=== PATIENT | female | born 1935 | race Caucasian/White ===

== ENCOUNTER 2016-05-06 23:43 | Emergency (ER) | payer MEDICARE ==
[~2016-05-06] VITALS: Ht 167.6 cm; Wt 72.6 kg
[~2016-05-06 23:43] MED LIST: CARV3.12 PO; HYDR12.55 PO; ISOS30TA47 PO; LEVO25TA2 PO; LOSA50TA21 PO; ROSU40TA PO
== END 2016-05-07 00:55 | disposition home or self-care (01) ==
LOC: ER 23:56
DX: B02.9 Zoster without complications (principal); I10 Essential (primary) hypertension; F17.200 Nicotine dependence, unspecified, uncomplicated
CPT/HCPCS: 99283; A4663

== ENCOUNTER 2016-09-08 07:18 | Inpatient (IN) | payer MEDICARE, MEDICAID ==
[~2016-09-08] VITALS: Ht 167.6 cm; Wt 70.8 kg
[~2016-09-08 07:18] MED LIST changes: -ISOS30TA47 PO; +ISOS30TA9 PO
--- NOTE | 2016-09-08 07:30 | NUR ---
DR GRAY AT BEDSIDE FOR C/O BACK PAIN THAT PATIENT STATES "HAS OCCURED BEFORE DUE TO A PRIOR INJURY".
--- NOTE | 2016-09-08 07:39 | NUR ---
BP IS HIGH, DR GRAY AWARE. PATIENT STATES SHE JUST TOOK 3 BLOOD PRESSURE PILLS PRIOR TO ARRIVAL. SHE IS ALSO IN A LOT OF PAIN. SHE STATES "MY BLOOD PRESSURE IS ALWAYS HIGH".
[2016-09-08] MEDS ORDERED: GABAPENTIN 100 MG CAPSULE PO ONE (07:45)
[2016-09-08] MEDS ORDERED: GABAPENTIN 100 MG CAPSULE ONE (07:48)
[2016-09-08 07:59] LABS: BASOPHILS # (AUTO) 0.1 K/uL (0.0-8.0); BASOPHILS % (AUTO) 1.1 % (0.0-2.0); EOSINOPHILS # (AUTO) 0.2 K/uL (0.0-0.7); EOSINOPHILS % (AUTO) 3.1 % (0.0-7.0); HEMATOCRIT 46.1 % (37-47); HEMOGLOBIN 15.1 G/DL (12.0-16.0); LYMPHOCYTES # (AUTO) 2.3 K/UL (0.8-4.8); LYMPHOCYTES % (AUTO) 29.9 % (20.5-51.5); MEAN CORPUSCULAR HEMOGLOBIN 29.1 UUG (27.0-31.0); MEAN CORPUSCULAR HGB CONC 33 g/dL (32.0-37.0); MEAN CORPUSCULAR VOLUME 88.7 FL (81.0-99.0); MONOCYTES # (AUTO) 0.5 K/UL (0.1-1.30); MONOCYTES % (AUTO) 6.9 % (0.0-11.0); NEUTROPHILS # (AUTO) 4.6 K/UL (1.8-8.9); PLATELET COUNT (AUTO) 84 K/UL (150-450); WHITE BLOOD COUNT (AUTO) 7.7 K/UL (4.0-11.2)
[2016-09-08 08:20] LABS: CARBON DIOXIDE 26 mmol/L (21-32); CHLORIDE 103 mmol/L (98-107); CREATININE 0.9 mg/dL (0.6-1.3); GLUCOSE 104 mg/dL (74-106); UREA NITROGEN, BLOOD 12 mg/dL (7-18)
--- NOTE | 2016-09-08 08:22 | NUR ---
PATIENT STATES PAIN HAS DIMINISHED.
[2016-09-08 08:26] LABS: ALANINE AMINOTRANSFERASE 25 U/L (14-59); ALKALINE PHOSPHATASE 63 U/L (50-136); ASPARTATE AMINOTRANSFERASE 22 U/L (15-37); BILIRUBIN,DIRECT 0.1 mg/dL (0.0-0.2); BILIRUBIN,TOTAL 0.5 mg/dL (0.2-1.0); TOTAL PROTEIN, SERUM 6.9 g/dL (6.4-8.2)
[2016-09-08 08:49] LABS: BAND % (MANUAL) 3 % (0-10); EOSINOPHILS % (MANUAL) 2 % (0-8); LYMPHOCYTES % (MANUAL) 27 % (20-40); MONOCYTES % (MANUAL) 6 % (2-10); NEUTROPHILS % (MANUAL) 62 % (42-75)
[2016-09-08] MEDS ORDERED: MULT1TAB73 PO (09:11)
[2016-09-08] MEDS ORDERED: ASPI81TA31 PO (09:11)
[2016-09-08] MEDS ORDERED: FLAX100025 PO (09:11)
[2016-09-08] MEDS ORDERED: LOSA100T15 PO (09:11)
[2016-09-08] MEDS ORDERED: LACT1CAP71 PO (09:11)
--- NOTE | 2016-09-08 09:15 | NUR ---
REPORT GIVEN TO GEORGE ANDRES. PT AND FAMILY AWARE OF PENDING ADMISSION.
--- NOTE | 2016-09-08 09:59 | NUR ---
PATIENT URINATED IN A CUP UPON ADMISSION TO [facility] FOR LAB.
[2016-09-08 10:09] VITALS: BP 162/90
--- NOTE | 2016-09-08 10:10 | NUR ---
Received this admission from ER per patric, this 80 yo female with the chief complaint of sever back pain, with the diagnosis of intractable back pain. Transferred to bed comfortably. Routine admission care rendered. Awake, alert, oriented x 4, able to move all extremities on purpose, ambulate to the bathroom. Denies numbness or tingling of extremities. Dr. Boss informed of admission
[2016-09-08] MEDS ORDERED: LOSA50TA21 PO (11:02)
[2016-09-08 11:42] VITALS: BP 160/68
[2016-09-08 15:49] VITALS: BP 171/79
--- NOTE | 2016-09-08 16:21 | NUR ---
Called back Dr. Boss to follow up admission orders.
[2016-09-08] MEDS: GABAPENTIN 300 MG CAPSULE PO SCH ×2 (17:35→22:00)
[2016-09-08] MEDS ORDERED: ISOS60TA4 PO (17:39)
--- NOTE | 2016-09-08 18:17 | NUR ---
Explain plan of care with patient and family. Gabapentin given started as ordered.
[2016-09-08 20:00] VITALS: BP 168/84
[2016-09-08] MEDS: CARVEDILOL 3.125 MG TABLET PO SCH (20:11)
[2016-09-08] MEDS: LOSARTAN POTASSIUM 50 MG TABLET PO SCH (20:11)
--- NOTE | 2016-09-08 22:00 | NUR ---
GABAPENTIN 300MG WAS PREVIOUSLY ADMINISTERED BY DAY SHIFT RN AT 1735. SCHEDULED MED Q8HR TOO SOON TO ADMINISTER AT 2200.
--- NOTE | 2016-09-09 | NUR ---
GABAPENTIN 300MG REFUSED BY PATIENT. PATIENT STATED "I DON'T NEED IT".
--- NOTE | 2016-09-09 04:30 | NUR ---
PT'S BP ELEVATED 166/80, HR 67. PT NO C/O OF DIZZINESS, NAUSEA/VOMITING, CHEST PAIN, SOB. PT IS ASYMPTOMATIC. OFFERED PT COREG BUT PT REFUSED TO TAKE MEDS, STATED "I TAKE MY BP MEDS AFTER BREAKFAST, I NEED TO TAKE MY THYROID MED RIGHT NOW". PT FURTHER STATED "I HAVE ALWAYS HAD HIGH BP FOR YEARS AND YEARS AND YEARS". EXPLAINED TO THE PATIENT REGARDING RISKS AND BENEFITS FOR TAKING/NOT TAKING BP MED NOW DUE TO HIGH BP. PATIENT VERBALIZED UNDERSTANDING. WILL CONTINUE TO MONITOR.
[2016-09-09 05:01] VITALS: BP 166/80
[2016-09-09] MEDS: GABAPENTIN 300 MG CAPSULE PO SCH ×3 (05:03→21:09)
[2016-09-09] MEDS: LEVOTHYROXINE SODIUM 25 MCG TABLET PO SCH (06:12)
--- NOTE | 2016-09-09 06:24 | NUR ---
PT SLEPT WELL, IN NO ACUTE DISTRESS. ASSISTED WITH TOILETING NEEDS. PATIENT IS A PLEASANT LADY, COOPERATIVE, EXPRESSED RELIEF OF BACK PAIN FROM GABAPENTIN. SAFETY MEASURES IN PLACE. CALL LIGHT WITHIN REACH, BED ALARM ON. WILL CONTINUE TO MONITOR.
--- NOTE | 2016-09-09 08:08 | NUR ---
PT SLEEPING IN BED, AWAKENS TO NAME, NO ACUTE DISTRESS. RECEIVED PT WITH NO IV. NO FLUIDS ORDERED. [id number], ALL SAFETY AND COMFORT MEASURES ATTENDED TO, CALL LIGHT IN REACH, WILL CONTINUE TO MONITOR
[2016-09-09] MEDS ORDERED: TRAMADOL HCL 50 MG TABLET PO PRN (08:15)
[2016-09-09 08:18] LABS: *BILIRUBIN,URIN NEGATIVE (NEGATIVE); *BLOOD, URINE Trace-lysed (NEGATIVE); *CLARITY,URINE CLEAR (CLEAR); *COLOR,URINE YELLOW (YELLOW); *KETONES,URINE NEGATIVE (NEGATIVE); *PROTEIN,URINE NEGATIVE (NEGATIVE); *UROBILINOGEN,URINE 0.2 E.U./dl (NORMAL); LEUKOCYTE ESTERASE ,URINE 1+ (NEGATIVE); NITRITE, URINE NEGATIVE (NEGATIVE); UGLUCOSE NEGATIVE (NEGATIVE)
[2016-09-09] MEDS: ACIDOPHILUS/BULGARICUS CHEW TAB PO SCH (08:40)
[2016-09-09] MEDS: MULTIVITAMINS,THERAPEUTIC TABLET PO SCH (08:40)
[2016-09-09] MEDS: CARVEDILOL 3.125 MG TABLET PO SCH ×2 (08:43→20:18)
[2016-09-09] MEDS: LOSARTAN POTASSIUM 50 MG TABLET PO SCH ×2 (08:43→20:17)
[2016-09-09] MEDS: ISOSORBIDE MONONITRATE 60 MG TAB.SR.24H PO SCH (08:43)
[2016-09-09] MEDS ORDERED: MISCELLANEOUS MED PO SCH (09:00)
[2016-09-09] MEDS ORDERED: ISOSORBIDE DINITRATE 20 MG TABLET PO SCH (09:00)
[2016-09-09] MEDS ORDERED: ASPIRIN 81 MG TAB.CHEW PO SCH (09:00)
[2016-09-09] MEDS: LIDOCAINE 5% PATCH TD SCH (09:18)
[2016-09-09] MEDS: NAPROXEN 500 MG TABLET PO SCH ×3 (09:19→21:09)
[2016-09-09] MEDS: ATORVASTATIN 40 MG TABLET PO SCH (09:54)
[2016-09-09 10:35] LABS: BACTERIA,URINE FEW /HPF (NONE SEEN); SQUAMOUS EPITHELIAL CELL,UR FEW /HPF (NONE SEEN)
[2016-09-09 11:26] VITALS: BP 139/43
[2016-09-09 15:38] VITALS: BP 136/82
[2016-09-09 20:00] VITALS: BP 153/75
[2016-09-10 04:41] VITALS: BP 149/74
[2016-09-10] MEDS: GABAPENTIN 300 MG CAPSULE PO SCH ×2 (06:00→13:57)
[2016-09-10] MEDS: NAPROXEN 500 MG TABLET PO SCH ×2 (06:00→13:58)
--- NOTE | 2016-09-10 06:00 | NUR ---
PT SLEPT INTERMITTENTLY, IN NO ACUTE DISTRESS. PT C/O OF BEING "LIGHTHEADED". PATIENT'S VS STABLE, NO SOB, NO CHEST PAIN. MEDS ADMINISTERED ORDERED. ASSISTED WITH TOILETING NEEDS. SAFETY MEASURES IN PLACE, CALL LIGHT WITHIN REACH, BED ALARM ON. WILL CONTINUE TO MONITOR.
--- NOTE | 2016-09-10 06:00 | NUR ---
PT REFUSED 0600 SCHEDULED MEDS NAPROXEN AND GABAPENTIN. PT STATED "I DON'T FEEL GOOD, I AM GIVEN TOO MANY MEDICATIONS, I DON'T FEEL ANY PAIN RIGHT NOW". DISCUSSED WITH PATIENT REGARDING RISKS AND BENEFITS ABOUT TAKING/NOT TAKING MEDICATIONS. PATIENT VERBALIZED UNDERSTANDING AND STILL REFUSED TO TAKE NAPROXEN AND GABAPENTIN. PATIENT STATED "I WILL TAKE MY THYROID MEDICINE THOU". WILL CONTINUE TO MONITOR.
[2016-09-10] MEDS: LEVOTHYROXINE SODIUM 25 MCG TABLET PO SCH (06:03)
[2016-09-10] MEDS ORDERED: PREG50CA PO (08:12)
[2016-09-10] MEDS ORDERED: Isosorbide Mononitrate PO (08:12)
[2016-09-10] MEDS ORDERED: NAPR500T3 PO (08:12)
[2016-09-10] MEDS ORDERED: LIDO30AD10 TD (08:12)
[2016-09-10] MEDS: ISOSORBIDE MONONITRATE 60 MG TAB.SR.24H PO SCH (08:48)
[2016-09-10] MEDS: MULTIVITAMINS,THERAPEUTIC TABLET PO SCH (08:48)
[2016-09-10] MEDS: CARVEDILOL 3.125 MG TABLET PO SCH (08:48)
[2016-09-10] MEDS: LOSARTAN POTASSIUM 50 MG TABLET PO SCH (08:48)
[2016-09-10] MEDS: ACIDOPHILUS/BULGARICUS CHEW TAB PO SCH (08:48)
[2016-09-10] MEDS: LIDOCAINE 5% PATCH TD SCH (08:49)
[2016-09-10] MEDS: ATORVASTATIN 40 MG TABLET PO SCH (08:55)
--- NOTE | 2016-09-10 08:55 | NUR ---
PT REFUSING LIPITOR, BROUGHT OWN MEDICATIONS AND WANTS HER OWN. WILL CALL PHARMACY
[2016-09-10] MEDS ORDERED: CRESTOR 40 MG PO SCH (09:15)
[2016-09-10] MEDS ORDERED: ASPIRIN 81 MG TAB.CHEW PO SCH (09:18)
[2016-09-10 11:09] VITALS: BP 123/62
--- NOTE | 2016-09-10 14:32 | NUR ---
DISCHARGE PROTOCOL FOLLOWED, ID BAND REMOVED, ALL BELONGINGS ACCOUNTED FOR AND SENT WITH PATIENT. LEFT MESSAGE FOR NA, DAUGHTER, TO NOTIFY OF TRANSFER, REPORT GIVEN TO ARU, PT TAKEN DOWN TO ARU FOR CONTINUITY OF CARE.
== END 2016-09-10 14:15 | DRG 551 ==
LOC: ER 07:18 → MED 09:32
PROVIDERS: ADMIT Internal Medicine; ATTEND Internal Medicine
DX: M54.9 Dorsalgia, unspecified (principal); R53.2 Functional quadriplegia; I10 Essential (primary) hypertension; I73.9 Peripheral vascular disease, unspecified; K21.9 Gastro-esophageal reflux disease without esophagitis; Z79.899 Other long term (current) drug therapy; Z79.82 Long term (current) use of aspirin; Z98.62 Peripheral vascular angioplasty status; Z73.6 Limitation of activities due to disability
CPT/HCPCS: 36415; 72072; 72110; 85025; 87086; 97110; 97116; 97161; 97165; 97530

== ENCOUNTER 2016-09-10 13:15 | Inpatient (IN) | payer MEDICARE, MEDICAID ==
[~2016-09-10] VITALS: Ht 167.6 cm; Wt 71.2 kg
[~2016-09-10 13:15] MED LIST changes: +ASPI81TA31 PO; +FLAX100025 PO; -HYDR12.55 PO; -ISOS30TA9 PO; +ISOS60TA4 PO; +Isosorbide Mononitrate PO; +LACT1CAP71 PO; +LIDO30AD10 TD; +MULT1TAB73 PO; +NAPR500T3 PO; +PREG50CA PO
[2016-09-10] MEDS ORDERED: Z GUARD REMEDY PASTE 57 GM TUBE TOP PRN (17:30)
[2016-09-10 18:20] VITALS: BP 157/73
--- NOTE | 2016-09-10 18:43 | NUR ---
pt admitted from second floor medsur with a diagnosis of debility .pt vitals recorded on chart. pt stable and shows no signs of distress. all pertinent assessments done. pt arrived at 09/10 at 1600. vitals taken . belonging reconciled. meds recon done with dr todd. states to continue all meds as listed on chart. pt had lidocaine patch on back. pt states she wants to get her own meds from bottles provided and does not want meds from pharmacy. will report new orders and developments to sheep sorter nurse.
[2016-09-10] MEDS: LOSARTAN 50MG PO SCH (20:33)
[2016-09-10] MEDS: CARVEDILOL 3.125MG PO SCH (20:33)
[2016-09-10] MEDS ORDERED: CARVEDILOL 3.125 MG TABLET PO SCH (21:00)
[2016-09-10] MEDS: NAPROXEN 500 MG TABLET PO SCH (22:00)
[2016-09-10 22:18] VITALS: BP 178/80
[2016-09-11] MEDS: LEVOTHYROXINE 25MCG PO SCH (06:05)
[2016-09-11] MEDS: NAPROXEN 500 MG TABLET PO SCH ×3 (06:05→21:23)
[2016-09-11] MEDS ORDERED: LEVOTHYROXINE SODIUM 25 MCG TABLET PO SCH (07:00)
[2016-09-11 07:44] LABS: BASOPHILS # (AUTO) 0.1 K/uL (0.0-8.0); BASOPHILS % (AUTO) 0.8 % (0.0-2.0); EOSINOPHILS # (AUTO) 0.1 K/uL (0.0-0.7); HEMATOCRIT 46.3 % (37-47); HEMOGLOBIN 15.2 G/DL (12.0-16.0); LYMPHOCYTES # (AUTO) 2.2 K/UL (0.8-4.8); MEAN CORPUSCULAR HEMOGLOBIN 29.2 UUG (27.0-31.0); MEAN CORPUSCULAR HGB CONC 33 g/dL (32.0-37.0); MEAN CORPUSCULAR VOLUME 89.1 FL (81.0-99.0); MONOCYTES # (AUTO) 0.6 K/UL (0.1-1.30); MONOCYTES % (AUTO) 8.9 % (0.0-11.0); NEUTROPHILS # (AUTO) 4.1 K/UL (1.8-8.9); NEUTROPHILS % (AUTO) 57.3 % (38.5-71.5); PLATELET COUNT (AUTO) 97 K/UL (150-450); RED BLOOD CELL COUNT(AUTO) 5.19 MIL/UL (4.2-5.4); WHITE BLOOD COUNT (AUTO) 7.1 K/UL (4.0-11.2)
[2016-09-11 07:53] LABS: CARBON DIOXIDE 29 mmol/L (21-32); CHLORIDE 106 mmol/L (98-107); CHOLESTEROL 120 mg/dL (<200); CREATININE 0.9 mg/dL (0.6-1.3); GLUCOSE 91 mg/dL (74-106); HDL CHOLESTEROL 53 mg/dL (40-60); MAGNESIUM 2.1 mg/dL (1.8-2.4); PHOSPHOROUS 3.5 mg/dL (2.5-4.9); TRIGLYCERIDES 65 MG/DL (30-150); UREA NITROGEN, BLOOD 16 mg/dL (7-18)
[2016-09-11 08:37] VITALS: BP 171/80
[2016-09-11] MEDS: ASPIRIN 81MG PO SCH (08:55)
[2016-09-11] MEDS: FLAXSEED OIL 1000 MG PO SCH (08:55)
[2016-09-11] MEDS: CARVEDILOL 3.125MG PO SCH ×2 (08:56→18:29)
[2016-09-11] MEDS: [UNRECOGNIZED DRUG - OTHER] PO SCH (08:56)
[2016-09-11] MEDS: LIDOCAINE 5% PATCH TD SCH (08:56)
[2016-09-11] MEDS: [UNRECOGNIZED DRUG - OTHER] PO SCH (08:56)
[2016-09-11] MEDS: MULTIVITAMIN ADULT PO SCH (08:56)
[2016-09-11] MEDS: ISOSORBIDE MONONITRATE 60 MG PO SCH (08:56)
[2016-09-11] MEDS: CRESTOR 40 MG PO SCH (08:56)
[2016-09-11] MEDS: PREGABALIN 25 MG CAPSULE PO SCH ×2 (08:57→18:29)
[2016-09-11] MEDS ORDERED: ISOSORBIDE MONONITRATE 60 MG TAB.SR.24H PO SCH (09:00)
[2016-09-11] MEDS ORDERED: LOSARTAN POTASSIUM 50 MG TABLET PO SCH (09:00)
[2016-09-11] MEDS ORDERED: ASPIRIN 81 MG TAB.CHEW PO SCH (09:00)
[2016-09-11] MEDS: LOSARTAN 50MG PO SCH ×2 (09:52→21:23)
[2016-09-11 11:58] LABS: BAND % (MANUAL) 1 % (0-10); EOSINOPHILS % (MANUAL) 1 % (0-8); LYMPHOCYTES % (MANUAL) 38 % (20-40); MONOCYTES % (MANUAL) 6 % (2-10); NEUTROPHILS % (MANUAL) 53 % (42-75)
[2016-09-11 12:08] LABS: REACTIVE LYMPHOCYTES 1 % (0-0)
[2016-09-11 19:59] VITALS: BP 158/75
[2016-09-11 20:00] VITALS: BP 158/75
[2016-09-12] MEDS: NAPROXEN 500 MG TABLET PO SCH ×3 (06:01→22:00)
[2016-09-12] MEDS: LEVOTHYROXINE 25MCG PO SCH (06:02)
[2016-09-12 08:57] VITALS: BP 159/84
[2016-09-12] MEDS: LIDOCAINE 5% PATCH TD SCH ×2 (09:00→10:00)
[2016-09-12] MEDS: LOSARTAN 50MG PO SCH ×2 (09:00→20:09)
[2016-09-12] MEDS: ISOSORBIDE MONONITRATE 60 MG PO SCH (09:59)
[2016-09-12] MEDS: CRESTOR 40 MG PO SCH (09:59)
[2016-09-12] MEDS: CARVEDILOL 3.125MG PO SCH ×2 (09:59→16:51)
[2016-09-12] MEDS: ASPIRIN 81MG PO SCH (09:59)
[2016-09-12] MEDS: FLAXSEED OIL 1000 MG PO SCH (09:59)
[2016-09-12] MEDS: MULTIVITAMIN ADULT PO SCH (10:00)
[2016-09-12] MEDS: [UNRECOGNIZED DRUG - OTHER] PO SCH (10:00)
[2016-09-12] MEDS: PREGABALIN 25 MG CAPSULE PO SCH ×2 (10:00→16:50)
[2016-09-12] MEDS: [UNRECOGNIZED DRUG - OTHER] PO SCH (10:00)
--- NOTE | 2016-09-12 18:52 | NUR ---
pt refused to have lidocaine patch on the back. pt states taht she wants to have heat packs instead to relieve discomfort. pt states that therapy was good and md recommended to have 1 week stay. pt agreed to recommendation. pt was supervised when walking. pt took home meds as prescribed. will continue to endorse new improvements to night guard nurse.
--- NOTE | 2016-09-12 19:00 | NUR ---
Received report from GEORGE Lester
--- NOTE | 2016-09-12 19:30 | NUR ---
Seen patient sitting at the edge of hospital bed. AOX4 ambulates w/ cane.Denies any pain.Observed to be very independent w/ her ADL's. Appetite is very good per pt.Mentioned that she did not used her lidocaine patch, used heating/warm compress instead. Did not take her naprosyn last night, was sleeping really good. Pt admitted that she still smokes, was found outside the lounge, EDUCATIONAL PARAPROFESSIONAL witnessed smoking outside. Asked if she has plan of quitting, and she said it is really part of her lifestyle and would have more problems (withdrawal symptoms per pt) if she quits.
[2016-09-12 20:00] VITALS: BP 129/61
--- NOTE | 2016-09-12 20:00 | NUR ---
PM medications given, swallowed meds w/o any difficulty. Ambulated w/ cane w/ no problem.
--- NOTE | 2016-09-13 | NUR ---
Pt sleeping w/ no interruptions. Breathing normally. Continue monitor.Call lights w/in reach.
--- NOTE | 2016-09-13 02:00 | NUR ---
Pt continued to sleep. Breathing normally. Continue monitor.Call lights w/in reach. bed at the lowest position.
--- NOTE | 2016-09-13 04:00 | NUR ---
Pt resting comfortably.Breathing normally.Continue monitor.
--- NOTE | 2016-09-13 06:00 | NUR ---
Pt is awake, perineal and sponge bath provided, lotion provided, changed chucks and linen.Turned and repositioned. Made her comfortable.Kept bed to lowest position Addendum: 09/13/16 at 0659 by ELIZABETH WAGNER RN Error. Wrong patient.
--- NOTE | 2016-09-13 06:00 | NUR ---
GIven Synthroid, preferred to be given at this time 0600.
[2016-09-13] MEDS: LEVOTHYROXINE 25MCG PO SCH (06:05)
[2016-09-13] MEDS: NAPROXEN 500 MG TABLET PO SCH ×3 (06:05→21:03)
--- NOTE | 2016-09-13 06:30 | NUR ---
Given Synthroid and Protonix as ordered, swallowed meds w/o any difficulty. Oral care done, cleansed dentures. Addendum: 09/13/16 at 0702 by ELIZABETH WAGNER RN Error.Wrong patient.
--- NOTE | 2016-09-13 07:00 | NUR ---
Report given to dee dee VAZQUEZ.
[2016-09-13 07:30] VITALS: BP 180/78
[2016-09-13] MEDS: ISOSORBIDE MONONITRATE 60 MG PO SCH (08:15)
[2016-09-13] MEDS: MULTIVITAMIN ADULT PO SCH (08:15)
[2016-09-13] MEDS: CARVEDILOL 3.125MG PO SCH ×2 (08:15→16:58)
[2016-09-13] MEDS: CRESTOR 40 MG PO SCH (08:15)
[2016-09-13] MEDS: LOSARTAN 50MG PO SCH ×2 (08:15→21:03)
[2016-09-13] MEDS: [UNRECOGNIZED DRUG - OTHER] PO SCH (08:15)
[2016-09-13] MEDS: [UNRECOGNIZED DRUG - OTHER] PO SCH (08:15)
[2016-09-13] MEDS: ASPIRIN 81MG PO SCH (08:15)
[2016-09-13] MEDS: FLAXSEED OIL 1000 MG PO SCH (08:15)
[2016-09-13] MEDS: LIDOCAINE 5% PATCH TD SCH (08:16)
[2016-09-13] MEDS: PREGABALIN 25 MG CAPSULE PO SCH ×2 (08:19→16:57)
--- NOTE | 2016-09-13 19:24 | NUR ---
pt had no complications during shift. pt adhered to medication and physcial therapy. pt refused lidocaine patch for back pain and insisted on heat packs. comfort measures provided will continue to endorse to overnight associate nures.
[2016-09-13 20:00] VITALS: BP 136/71
--- NOTE | 2016-09-13 20:00 | NUR ---
RECEIVED PATIENT AWAKE IN BED. A/O X4. PLEASANT WHEN APPROACHED. DENIES ANY PAIN OR DISCOMFORT AT THIS TIME. NO RESP. DISTRESS NOTED. VSS. CALL LIGHT IN REACH. ALL NEEDS ATTENDED. WILL CONTINUE TO MONITOR.
[2016-09-14] MEDS: NAPROXEN 500 MG TABLET PO SCH ×3 (06:26→21:54)
[2016-09-14] MEDS: LEVOTHYROXINE 25MCG PO SCH (06:26)
--- NOTE | 2016-09-14 06:29 | NUR ---
PATIENT AWAKE, RESTING IN BED. SLEPT WELL THROUGHOUT THE NIGHT. DENIES PAIN OR DISCOMFORT. BED ALARM ON. CALL LIGHT IN REACH. ALL NEEDS ATTENDED, WILL CONTINUE TO MONITOR AND ASSESS.
[2016-09-14 07:30] VITALS: BP 160/83
--- NOTE | 2016-09-14 08:00 | NUR ---
RECEIVED PATIENT SITTING IN CHAIR. ALERT AWAKE AND ORIENTED X4. NO S/S OF DISTRESS. NO COMPLAINTS OF PAIN OR DISCOMFORT AT THE MOMENT. CALL LIGHT WITHIN REACH.
[2016-09-14] MEDS: PREGABALIN 25 MG CAPSULE PO SCH ×2 (08:11→17:25)
[2016-09-14] MEDS: CARVEDILOL 3.125MG PO SCH ×2 (08:12→18:54)
[2016-09-14] MEDS: ASPIRIN 81MG PO SCH (08:12)
[2016-09-14] MEDS: CRESTOR 40 MG PO SCH (08:13)
[2016-09-14] MEDS: FLAXSEED OIL 1000 MG PO SCH (08:14)
[2016-09-14] MEDS: ISOSORBIDE MONONITRATE 60 MG PO SCH (08:14)
[2016-09-14] MEDS: LOSARTAN 50MG PO SCH ×2 (08:14→20:28)
[2016-09-14] MEDS: [UNRECOGNIZED DRUG - OTHER] PO SCH (08:15)
[2016-09-14] MEDS: MULTIVITAMIN ADULT PO SCH (08:15)
[2016-09-14] MEDS: [UNRECOGNIZED DRUG - OTHER] PO SCH (08:15)
[2016-09-14] MEDS: LIDOCAINE 5% PATCH TD SCH (08:16)
--- NOTE | 2016-09-14 09:00 | NUR ---
PATIENT REFUSED LIDODERM PATCH AND SAID SHE IS TRYING TO WEAN IT. DISCUSSED RISKS AND BENEFITS. PATIENT SAID SHE WILL LET US KNOW OF SHE NEEDS IT LATER ON.
--- NOTE | 2016-09-14 10:02 | NUR ---
PATIENT TOLERATED THERAPY WITH TOLERABLE PAIN OVER LOWER BACK. OFFERED LIDODERM PATCH, BUT PATIENT SAID SHE WILL WAIT FOR HOT PACK TO TAKE EFFECT.
--- NOTE | 2016-09-14 18:07 | NUR ---
Patient refused to take carvedilol at this time, because according to her she takes her blood pressure medications all at the same time at night. Informed pharmacy. Discussed patient benefits of time prescribed, but patient still refused to take Carvedilol.
[2016-09-14 20:00] VITALS: BP 165/74
--- NOTE | 2016-09-14 20:00 | NUR ---
PATIENT AWAKE IN BED. A/O X4. DENIES ANY PAIN BUT C/O GENERALIZED DISCOMFORT. PATIENT STATED SHE DID A LOT OF PHYSICAL THERAPY THROUGHOUT THE DAY SO SHE IS A LITTLE SORE AND TIRED. BP ELEVATED 165/74. ALL OTHER VSS. PATIENT HAS ROUTINE LOSARTAN 50MG PO FOR BP AND NAPROXEN 500MG PO FOR PAIN. NO RESP. DISTRESS NOTED. CALL LIGHT IN REACH. ALL NEEDS ATTENDED. WILL CONTINUE TO MONITOR AND ASSESS.
[2016-09-15] MEDS: LEVOTHYROXINE 25MCG PO SCH (06:03)
[2016-09-15] MEDS: NAPROXEN 500 MG TABLET PO SCH ×3 (06:03→22:28)
--- NOTE | 2016-09-15 06:34 | NUR ---
PATIENT AWAKE IN BED. RECHECKED BLOOD PRESSURE AND RECEIVED 165/69. PATIENT STATED THAT THIS IS HER BASELINE. PATIENT IS ASYMPTOMATIC AND DENIES ANY PAIN, BUT DOES C/O GENERALIZED DISCOMFORT. PATIENT STATED SHE STILL FEELS OVER-WORKED FROM PHYSICAL THERAPY YESTERDAY. SLEPT WELL. NO RESP. DISTRESS NOTED. CALL LIGHT IN REACH. ALL NEEDS ATTENDED. WILL CONTINUE TO MONITOR.
[2016-09-15 07:30] VITALS: BP 123/89
--- NOTE | 2016-09-15 08:12 | NUR ---
RECEIVED PATIENT SITTING IN BED, AWAKE, ALERT AND ORIENTED X4. NO COMPLAINTS OF PAIN OR DISCOMFORT. PATIENT VERBALIZED THAT SHE FELT TIRED FROM YESTERDAY'S THERAPY. NOT IN ANY FORM OF DISTRESS. CALL LIGHT WITHIN REACH.
[2016-09-15] MEDS: PREGABALIN 25 MG CAPSULE PO SCH ×2 (08:51→18:05)
[2016-09-15] MEDS: CARVEDILOL 3.125MG PO SCH ×3 (08:56→20:12)
[2016-09-15] MEDS: CRESTOR 40 MG PO SCH (08:56)
[2016-09-15] MEDS: ASPIRIN 81MG PO SCH (08:56)
[2016-09-15] MEDS: ISOSORBIDE MONONITRATE 60 MG PO SCH (08:56)
[2016-09-15] MEDS: FLAXSEED OIL 1000 MG PO SCH (08:58)
[2016-09-15] MEDS: [UNRECOGNIZED DRUG - OTHER] PO SCH (08:58)
[2016-09-15] MEDS: [UNRECOGNIZED DRUG - OTHER] PO SCH (08:58)
[2016-09-15] MEDS: MULTIVITAMIN ADULT PO SCH (08:58)
[2016-09-15] MEDS: LIDOCAINE 5% PATCH TD SCH (09:00)
[2016-09-15] MEDS: LOSARTAN 50MG PO SCH ×2 (09:03→20:11)
--- NOTE | 2016-09-15 09:16 | NUR ---
PATIENT REFUSED TO HAVE LIDODERM PATCH. DISCUSSED RISKS AND BENEFITS BUT STILL REFUSED AND SAID SHE WILL LET US KNOW IF SHE NEEDS IT.
--- NOTE | 2016-09-15 14:53 | NUR ---
Oracle Business Intelligence Developer: SW met with patient at bedside to assess needs and provide support. Patient is an 80-year-old female admitted to ARU for back pain/debility. Upon psychiatric social worker interview, patient is pleasant, calm, and cooperative. Patient reported she has been suffering from back pain since "1993" and stated this is not her first hospitalization. Per patient, she has tried various different treatments (i.e. shock therapy, Injections, physical therapy, etc.) for many years. She reported to cope with the back pain by either taking a hot shower, taking Tylenol, or if the pain became uncontrollable she would then go to the hospital. Patient reported she lives at home with her daughter and son in law. She stated her daughter is very involved and supportive at home. Per patient, she uses a walker at home and denied any other DME needed at this time. She stated her goal is "Go home tomorrow" and referred to 09/16/16. Per patient, she feels "stronger" and more "confident" to return home. She reported she no longer has any back pain, and stated that physical therapy has helped her. SW provided supportive counseling to address patients issues of loss related to her hospitalization. SW engaged in active listening. SW provided linkage to resources (case management, caregiving referrals). SW will encourage patient to comply with rehab goals.
--- NOTE | 2016-09-15 20:00 | NUR ---
PATIENT AWAKE IN ROOM. A/O X4. DENIES PAIN OR DISCOMFORT. NO RESP. DISTRESS NOTED. AMBULATES AROUND WELL. STEADY. ALL NEEDS ATTENDED. CALL LIGHT IN REACH.
[2016-09-15 21:32] VITALS: BP 167/84
--- NOTE | 2016-09-16 05:30 | NUR ---
PATIENT ASLEEP. SLEPT WELL THROUGHOUT THE NIGHT. NO S/S OF PAIN OR DISCOMFORT. NO RESP. DISTRESS NOTED. CALL LIGHT IN REACH. ALL NEEDS ATTENDED. WILL CONTINUE TO MONITOR, AND ASSESS.
[2016-09-16] MEDS: NAPROXEN 500 MG TABLET PO SCH ×3 (06:09→21:02)
[2016-09-16] MEDS: LEVOTHYROXINE 25MCG PO SCH (06:09)
--- NOTE | 2016-09-16 07:30 | NUR ---
Received patient awake, sitting on the chair, verbally responsive, coherent, afebrile, not in any form of acute distress. She denies any pain or discomfort at this time. Environmental safety check done. Reminded to use call light for assistance. Call light placed within reach. Assisted to her needs.
[2016-09-16] MEDS: ISOSORBIDE MONONITRATE 60 MG PO SCH (08:29)
[2016-09-16] MEDS: ASPIRIN 81MG PO SCH (08:29)
[2016-09-16] MEDS: [UNRECOGNIZED DRUG - OTHER] PO SCH (08:29)
[2016-09-16] MEDS: PREGABALIN 25 MG CAPSULE PO SCH ×2 (08:29→17:31)
[2016-09-16] MEDS: FLAXSEED OIL 1000 MG PO SCH (08:29)
[2016-09-16] MEDS: [UNRECOGNIZED DRUG - OTHER] PO SCH (08:30)
[2016-09-16] MEDS: CARVEDILOL 3.125MG PO SCH ×2 (08:30→21:02)
[2016-09-16] MEDS: LIDOCAINE 5% PATCH TD SCH (08:30)
[2016-09-16] MEDS: CRESTOR 40 MG PO SCH (08:30)
[2016-09-16] MEDS: MULTIVITAMIN ADULT PO SCH (08:30)
[2016-09-16] MEDS: LOSARTAN 50MG PO SCH ×2 (09:21→21:02)
[2016-09-16 10:31] VITALS: BP 168/83
--- NOTE | 2016-09-16 19:00 | NUR ---
Received report from GEORGE Dorsey
--- NOTE | 2016-09-16 20:00 | NUR ---
Seen patient sitting at the edge of her bed. AOX3 ambulates independently.Denies any back pain. Pleased with physical therapy. Looking forward to go home soon.
--- NOTE | 2016-09-16 21:00 | NUR ---
Administered pm meds:BP meds, tolerated well.
--- NOTE | 2016-09-17 | NUR ---
Pt resting comfortably. Breathing normally. Continue monitor.
[2016-09-17] MEDS: LEVOTHYROXINE 25MCG PO SCH (06:12)
[2016-09-17] MEDS: NAPROXEN 500 MG TABLET PO SCH ×3 (07:00→21:04)
--- NOTE | 2016-09-17 07:00 | NUR ---
Awake, given meds.report to GEORGE Yoon
[2016-09-17] MEDS: ASPIRIN 81MG PO SCH (08:20)
[2016-09-17] MEDS: MULTIVITAMIN ADULT PO SCH (08:20)
[2016-09-17] MEDS: [UNRECOGNIZED DRUG - OTHER] PO SCH (08:20)
[2016-09-17] MEDS: ISOSORBIDE MONONITRATE 60 MG PO SCH (08:20)
[2016-09-17] MEDS: LOSARTAN 50MG PO SCH ×2 (08:20→21:03)
[2016-09-17] MEDS: CARVEDILOL 3.125MG PO SCH ×2 (08:20→21:03)
[2016-09-17] MEDS: CRESTOR 40 MG PO SCH (08:20)
[2016-09-17] MEDS: [UNRECOGNIZED DRUG - OTHER] PO SCH (08:20)
[2016-09-17] MEDS: FLAXSEED OIL 1000 MG PO SCH (08:21)
[2016-09-17] MEDS: PREGABALIN 25 MG CAPSULE PO SCH ×2 (08:22→17:16)
[2016-09-17] MEDS: LIDOCAINE 5% PATCH TD SCH (08:22)
[2016-09-17 08:43] VITALS: BP 169/79
--- NOTE | 2016-09-17 19:30 | NUR ---
Received patient sitting up in chair. Alert and oriented. Able to make needs known. Denies any pain and discomfort at this time. No acute distress noted. No SOB. On room air. All needs attended to promptly. Call light within reach. Will continue to monitor.
[2016-09-17 20:36] VITALS: BP 146/80
[2016-09-17 21:21] VITALS: BP 114/64
--- NOTE | 2016-09-18 05:53 | NUR ---
Patient awake. Slept comfortably throughout the night. Sitting up in chair at this time. All needs attended to promptly. Call light within reach. Will continue to monitor.
[2016-09-18] MEDS: LEVOTHYROXINE 25MCG PO SCH (06:03)
[2016-09-18] MEDS: NAPROXEN 500 MG TABLET PO SCH ×3 (06:03→22:24)
[2016-09-18 08:05] VITALS: BP 187/92
[2016-09-18] MEDS: PREGABALIN 25 MG CAPSULE PO SCH ×2 (08:31→17:36)
[2016-09-18] MEDS: MULTIVITAMIN ADULT PO SCH (08:32)
[2016-09-18] MEDS: CRESTOR 40 MG PO SCH (08:32)
[2016-09-18] MEDS: FLAXSEED OIL 1000 MG PO SCH (08:32)
[2016-09-18] MEDS: CARVEDILOL 3.125MG PO SCH ×2 (08:32→20:38)
[2016-09-18] MEDS: [UNRECOGNIZED DRUG - OTHER] PO SCH (08:32)
[2016-09-18] MEDS: LOSARTAN 50MG PO SCH ×2 (08:32→20:38)
[2016-09-18] MEDS: ISOSORBIDE MONONITRATE 60 MG PO SCH (08:32)
[2016-09-18] MEDS: ASPIRIN 81MG PO SCH (08:32)
[2016-09-18] MEDS: [UNRECOGNIZED DRUG - OTHER] PO SCH (08:32)
[2016-09-18] MEDS: LIDOCAINE 5% PATCH TD SCH (08:33)
--- NOTE | 2016-09-18 19:15 | NUR ---
RECEIVED PATIENT IN BED, ALERT ORIENTED, AMBULATE TO BATHROOM FOR BOWEL AND BLADDER ELIMINATION, NO SOB NO CHEST PAIN, NO COMPLAIN OF PAIN AT THIS TIME. CALL LIGHT WITHIN REACH.
--- NOTE | 2016-09-18 19:42 | NUR ---
pt stable during shift. pt complains of no pain. adhered to therapy and meds. no complications. will endorse new orders to machinist 2nd shift nruse.
[2016-09-18 20:04] VITALS: BP 174/78
--- NOTE | 2016-09-18 22:00 | NUR ---
PATIENT BP ELEVATED, BUT ASYMPTOMATIC, NO HEADACHE, NO VOMITING NOTED, CONT TO MONITOR.
[2016-09-19] MEDS: NAPROXEN 500 MG TABLET PO SCH ×2 (06:00→14:00)
[2016-09-19] MEDS: LEVOTHYROXINE 25MCG PO SCH (07:00)
--- NOTE | 2016-09-19 07:07 | NUR ---
PATIENT SLEPT MOST OF THE NIGHT, NO COMPLAIN OF PAIN, BP ELEVATED ASYMPTOMATIC, PATIENT SMOKES NO SOB NO CHEST PAIN, ENDORSED TO NEXT SHIFT.
--- NOTE | 2016-09-19 08:05 | NUR ---
RECEIVED PATIENT AWAKE IN CHAIR, NO COMPLAINTS OF PAIN OR DISCOMFORT. NO S/S OF DISTRESS. CALL LIGHT WITHIN REACH. FOR POSSIBLE DISCHARGE TODAY.
[2016-09-19 08:26] VITALS: BP 172/85
[2016-09-19] MEDS: LIDOCAINE 5% PATCH TD SCH (09:00)
--- NOTE | 2016-09-19 09:09 | NUR ---
PATIENT REFUSED LIDODERM PATCH AND CLAIMS SHE DOES NOT NEED IT. PATIENT REFUSED NAPROXEN WELL AND SAID SHE WAS TRYING TO TAPER DOWN ON HER PAIN MEDICATIONS. DISCUSSED RISKS AND BENEFITS BUT PATIENT STILL REFUSES.
[2016-09-19] MEDS: FLAXSEED OIL 1000 MG PO SCH (09:14)
[2016-09-19] MEDS: CARVEDILOL 3.125MG PO SCH (09:15)
[2016-09-19] MEDS: [UNRECOGNIZED DRUG - OTHER] PO SCH (09:16)
[2016-09-19] MEDS: CRESTOR 40 MG PO SCH (09:16)
[2016-09-19] MEDS: ASPIRIN 81MG PO SCH (09:16)
[2016-09-19] MEDS: [UNRECOGNIZED DRUG - OTHER] PO SCH (09:16)
[2016-09-19] MEDS: ISOSORBIDE MONONITRATE 60 MG PO SCH (09:16)
[2016-09-19] MEDS: LOSARTAN 50MG PO SCH (09:16)
[2016-09-19] MEDS: MULTIVITAMIN ADULT PO SCH (09:16)
[2016-09-19] MEDS: PREGABALIN 25 MG CAPSULE PO SCH (09:17)
--- NOTE | 2016-09-19 10:30 | NUR ---
PAGED DR. THEODORE FOR MED RECONCILIATION AND PRESCRIPTIONS FOR DISCHARGE. NO CALL BACK OF THE MOMENT.
--- NOTE | 2016-09-19 11:26 | NUR ---
Called exchanged for [facility] nephrology. Paged for board of education secretary for med reconciliation and prescriptions but still no call back.
--- NOTE | 2016-09-19 13:00 | NUR ---
DR. REN TELEPHONE ORDERS TO CONTINUE ALL MEDICATIONS. HOWEVER, PRESCRIPTIONS FOR MEDICATIONS WILL BE DONE BY DR. MINAYA IN [address] REN. PATIENT AND FAMILY VERY EAGER TO GO HOME.
--- NOTE | 2016-09-19 14:00 | NUR ---
PATIENT REFUSED TO TAKE NAPROXEN AND SAID SHE IS NOT IN PAIN. DISCUSSED RISKS AND BENEFITS BUT STILL REFUSES
--- NOTE | 2016-09-19 14:56 | NUR ---
DISCHARGED AMBULATORY IN STABLE CONDITION,NO S/S OF DISTRESS, NO COMPLAINTS OF PAIN, VSS. ACCOMPANIED BY SON-IN LAW VIA PRIVATE CAR.
== END 2016-09-19 15:00 | disposition home health service (06) | DRG 947 ==
PROVIDERS: ADMIT Internal Medicine; ATTEND Internal Medicine
DX: R53.81 Other malaise (principal); R53.2 Functional quadriplegia; E03.9 Hypothyroidism, unspecified; S39.012A Strain of muscle, fascia and tendon of lower back, initial encounter; X58.XXXA Exposure to other specified factors, initial encounter; Y92.009 Unspecified place in unspecified non-institutional (private) residence as the place of occurrence of the external cause; I73.9 Peripheral vascular disease, unspecified; I10 Essential (primary) hypertension; R53.1 Weakness; M51.36 Other intervertebral disc degeneration, lumbar region; G89.29 Other chronic pain; M54.5 Low back pain; R26.9 Unspecified abnormalities of gait and mobility
CPT/HCPCS: 36415; 83735; 84100; 85025; 92610; 97110; 97112; 97116; 97161; 97530; 97535; A4663

== ENCOUNTER 2017-09-12 07:59 | Inpatient (IN) | payer MEDICARE, MEDICAID ==
[~2017-09-12] VITALS: Ht 167.6 cm; Wt 74.4 kg
[~2017-09-12 07:59] MED LIST changes: +NAPR-1009 PO; -NAPR500T3 PO
--- NOTE | 2017-09-12 08:29 | NUR ---
PT IS IN ROOM #1B. DR RIVAS EVALUATED THE PT.
[2017-09-12] MEDS ORDERED: ONDANSETRON 4 MG/2 ML VIAL IV ONE (08:30)
[2017-09-12] MEDS ORDERED: MECLIZINE HCL 25 MG TABLET PO ONE (08:30)
[2017-09-12] MEDS ORDERED: ONDANSETRON 4 MG/2 ML VIAL ONE (08:42)
[2017-09-12] MEDS ORDERED: MECLIZINE HCL 25 MG TABLET ONE (08:42)
[2017-09-12 09:08] LABS: BASOPHILS # (AUTO) 0.1 K/uL (0.0-8.0); BASOPHILS % (AUTO) 0.7 % (0.0-2.0); EOSINOPHILS # (AUTO) 0.2 K/uL (0.0-0.7); EOSINOPHILS % (AUTO) 1.9 % (0.0-7.0); HEMOGLOBIN 13.8 g/dL (10.9-14.3); LYMPHOCYTES # (AUTO) 2.4 K/uL (20.0-40.0); LYMPHOCYTES % (AUTO) 29.1 % (20.5-51.5); MEAN CORPUSCULAR HEMOGLOBIN 30.7 uug (24.7-32.8); MEAN CORPUSCULAR HGB CONC 34 g/dL (32.3-35.6); MEAN CORPUSCULAR VOLUME 91.3 fL (75.5-95.3); MONOCYTES # (AUTO) 0.7 K/uL (2.0-10.0); MONOCYTES % (AUTO) 8.9 % (0.0-11.0); NEUTROPHILS % (AUTO) 59.4 % (38.5-71.5); PLATELET COUNT (AUTO) 114 K/uL (179-408); RED BLOOD CELL COUNT(AUTO) 4.49 MIL/uL (3.63-4.92); WHITE BLOOD COUNT (AUTO) 8.4 K/uL (3.8-11.8)
[2017-09-12 09:17] LABS: CARBON DIOXIDE 28 mmol/L (21-32); CHLORIDE 106 mmol/L (98-107); CREATININE 0.9 mg/dL (0.6-1.3); GLUCOSE 90 mg/dL (74-106); POTASSIUM 3.4 mmol/L (3.5-5.1); UREA NITROGEN, BLOOD 10 mg/dL (7-18)
[2017-09-12 09:23] LABS: *BILIRUBIN,URIN NEGATIVE (NEGATIVE); *BLOOD, URINE NEGATIVE (NEGATIVE); *CLARITY,URINE CLOUDY (CLEAR); *COLOR,URINE YELLOW (YELLOW); *KETONES,URINE NEGATIVE (NEGATIVE); *PROTEIN,URINE TRACE (NEGATIVE); *UROBILINOGEN,URINE 0.2 E.U./dl (NORMAL); LEUKOCYTE ESTERASE ,URINE TRACE (NEGATIVE); NITRITE, URINE NEGATIVE (NEGATIVE); PH,URINE 8.5 (5.0-8.0); UGLUCOSE NEGATIVE (NEGATIVE)
[2017-09-12 09:30] LABS: ALANINE AMINOTRANSFERASE 33 U/L (14-59); ALKALINE PHOSPHATASE 59 U/L (50-136); ASPARTATE AMINOTRANSFERASE 24 U/L (15-37); BILIRUBIN,DIRECT 0.1 mg/dL (0.0-0.2); BILIRUBIN,TOTAL 0.4 mg/dL (0.2-1.0); TOTAL PROTEIN, SERUM 6.2 g/dL (6.4-8.2)
[2017-09-12 09:33] LABS: BACTERIA,URINE FEW /HPF (NONE SEEN); SQUAMOUS EPITHELIAL CELL,UR FEW /HPF (NONE SEEN); URINE AMORPHOUS PHOSPHATES FEW /HPF
--- NOTE | 2017-09-12 11:23 | NUR ---
REPORT WAS GIVEN TO MATERIAL HANDLING SUPERVISOR. PT WAS TRANSFERED TO TELEMETRY ROOM #226.
--- NOTE | 2017-09-12 11:50 | NUR ---
PT ARRIVED ON THE UNIT VIA GURNEY, PT IS CALM COOPERATIVE, BP 184/95 HEART RATE 95 DIGITAL PRODUCT SPECIALIST INFORMED.PT GIVEN COREG AND COZAAR. MEDICATION EFFECTIVE. BP 125/58. CONTINUE TO MONITOR PT. EF 60%, SKIN INTACT, AMBULATORY, AOX4, NO SIGNS OF RESPIRATORY DISTRESS.
[2017-09-12] MEDS: FUROSEMIDE 20 MG TABLET PO SCH (12:23)
[2017-09-12] MEDS ORDERED: LOSARTAN POTASSIUM 50 MG TABLET PO ONE (13:45)
[2017-09-12] MEDS: CARVEDILOL 3.125 MG TABLET PO SCH (13:58)
[2017-09-12 15:49] VITALS: BP 123/41
--- NOTE | 2017-09-12 18:52 | NUR ---
PT IS CALM, COOPERATIVE, AOX4, NO SIGNS OF DISTRESS, DENIES WEAKNESS, CONTINUE TO MONITOR PT.
[2017-09-12 19:00] VITALS: BP 137/60
--- NOTE | 2017-09-12 19:40 | NUR ---
RECEIVED SHIFT REPORT FROM GEORGE WATTERS. PT RESTING IN BED, NO COMPLAINTS AT THIS TIME. NSR ON TELE MONITORING. PT HAS A 20 G IV ACCESS ON RIGHT FOREARM, SALINE LOCKED. ORIENTED TO ROOM AND UNIT. CALL LIGHT WITHIN REACH.
[2017-09-12] MEDS: LOSARTAN POTASSIUM 50 MG TABLET PO SCH (20:39)
--- NOTE | 2017-09-12 22:15 | NUR ---
PT COMPLAINED OF FEELING "WEIRD". UPON ASSESSMENT, PT HYPERTENSIVE 180/71, HR 77. PT DENIES PAIN, C/P, SOB, N/V. PAGED DR MINAYA, AWAITING CALLBACK.
--- NOTE | 2017-09-12 22:30 | NUR ---
UPON REASSESSMENT, PT'S V/S 148/74, HR 76. PT STILL DENIES PAIN, C/P, SOB, N/V. WILL CONTINUE TO MONITOR. STILL AWAITING CALLBACK FROM ON-CALL
--- NOTE | 2017-09-12 22:48 | NUR ---
PT NOW DENIES ANY COMPLAINT. V/S 150/72, HR 76. NO PAIN, C/P, SOB, N/V. PT CALM AND RESTING COMFORTABLY IN BED. AWAITING CALLBACK FROM ON-CALL
[2017-09-13] VITALS (10 sets, daily range): BP systolic 120–181; BP diastolic 64–95
[2017-09-13] MEDS: LOSARTAN POTASSIUM 50 MG TABLET PO SCH ×2 (04:01→20:31)
--- NOTE | 2017-09-13 04:01 | NUR ---
PT'S V/S 181/68, HR 75. PT DENIES PAIN, C/P, SOB, N/V, HEADACHE. LOSARTAN ADMIN EARLY DUE TO ELEVATED BP.
--- NOTE | 2017-09-13 05:15 | NUR ---
UPON REASSESSMENT, PT'S BP STILL ELEVATED 181/82, HR 80. CONTACTED ON-CALL , DR. GREER. RECEIVED ORDERS TO ADMINISTER NITROGLYCERIN PASTE 1 INCH PRN Q6H FOR SBP > 165. ORDERS NOTED AND CARRIED OUT. WILL ADMINISTER MED ONCE VERIFIED BY PHARM.
[2017-09-13] MEDS: NITROGLYCERIN OINT 1 GM PACKET TP PRN ×2 (05:40→15:42)
--- NOTE | 2017-09-13 05:40 | NUR ---
PT'S BP 205/94, HR 64. PT DENIES PAIN, C/P, SOB, N/V, HEADACHE. NITRO PASTE ADMIN ORDERED. WILL CONTINUE TO MONITOR.
[2017-09-13] MEDS ORDERED: NITROGLYCERIN OINT 1 GM PACKET TP SCH (06:00)
[2017-09-13] MEDS: LEVOTHYROXINE SODIUM 25 MCG TABLET PO SCH (06:07)
[2017-09-13 06:09] LABS: BASOPHILS % (AUTO) 0.5 % (0.0-2.0); EOSINOPHILS # (AUTO) 0.1 K/uL (0.0-0.7); EOSINOPHILS % (AUTO) 1.6 % (0.0-7.0); HEMATOCRIT 39.4 % (31.2-41.9); HEMOGLOBIN 13.3 g/dL (10.9-14.3); LYMPHOCYTES # (AUTO) 2.5 K/uL (20.0-40.0); LYMPHOCYTES % (AUTO) 33.2 % (20.5-51.5); MEAN CORPUSCULAR HEMOGLOBIN 30.5 uug (24.7-32.8); MEAN CORPUSCULAR HGB CONC 34 g/dL (32.3-35.6); MEAN CORPUSCULAR VOLUME 89.9 fL (75.5-95.3); MONOCYTES # (AUTO) 0.6 K/uL (2.0-10.0); MONOCYTES % (AUTO) 8.4 % (0.0-11.0); NEUTROPHILS # (AUTO) 4.3 K/uL (1.8-8.9); NEUTROPHILS % (AUTO) 56.3 % (38.5-71.5); PLATELET COUNT (AUTO) 105 K/uL (179-408); RED BLOOD CELL COUNT(AUTO) 4.38 MIL/uL (3.63-4.92); WHITE BLOOD COUNT (AUTO) 7.6 K/uL (3.8-11.8)
[2017-09-13 06:32] LABS: CARBON DIOXIDE 31 mmol/L (21-32); CHLORIDE 106 mmol/L (98-107); GLUCOSE 84 mg/dL (74-106); POTASSIUM 3.9 mmol/L (3.5-5.1)
[2017-09-13 06:33] LABS: ALANINE AMINOTRANSFERASE 33 U/L (14-59); ALKALINE PHOSPHATASE 52 U/L (50-136); ASPARTATE AMINOTRANSFERASE 18 U/L (15-37); BILIRUBIN,TOTAL 0.6 mg/dL (0.2-1.0); CREATININE 0.8 mg/dL (0.6-1.3); MAGNESIUM 1.6 mg/dL (1.8-2.4); PHOSPHOROUS 3.9 mg/dL (2.5-4.9); TOTAL PROTEIN, SERUM 5.8 g/dL (6.4-8.2); UREA NITROGEN, BLOOD 11 mg/dL (7-18)
--- NOTE | 2017-09-13 06:47 | NUR ---
PT'S SBP RANGING IN THE 180'S AND DBP 80S. NITROGLYCERIN PASTE WELL TOLERATED. WILL REPORT TO AM SHIFT RN REGARDING PT'S BP STATUS. PT CONTINUES TO DENY PAIN, C/P, SOB, N/V. ASSISTED PT TO RESTROOM TO VOID. PT CURRENTLY IN BED, RESTING COMFORTABLY.
[2017-09-13] MEDS: CARVEDILOL 3.125 MG TABLET PO SCH ×2 (07:00→17:16)
--- NOTE | 2017-09-13 08:00 | NUR ---
AWAKE ALERT BUT ANXIOUS NO ACUTE DISTRESS OR PAIN ON FALL PRECAUTION CALL LIGHT IN REACH AND BED ALARM ON AND INSTRUCTION TO CALL WHEN NEED
[2017-09-13] MEDS: ASPIRIN 81 MG TAB.CHEW PO SCH (08:04)
[2017-09-13] MEDS: ISOSORBIDE MONONITRATE 60 MG TAB.SR.24H PO SCH (08:04)
[2017-09-13] MEDS: FUROSEMIDE 20 MG TABLET PO SCH (08:05)
--- NOTE | 2017-09-13 09:00 | NUR ---
DR MICHAEL WAS IN FORM OF BP STILL HIGH THIS AM 179/84
--- NOTE | 2017-09-13 10:00 | NUR ---
MED GIVEN FOR HIGH BP ORDER ASSIST UP AMB TO BRP USE FWW DOING WELL FAMILY DAUGHTER AT BEDSIDE
[2017-09-13] MEDS ORDERED: CARVEDILOL 3.125 MG TABLET PO ONE (10:15)
[2017-09-13] MEDS ORDERED: POTASSIUM CHLORIDE 10 MEQ TAB.PRT.SR PO ONE (10:45)
[2017-09-13] MEDS: MAGNESIUM SULFATE/D5W 100 ML IV SCH ×2 (10:59→11:56)
[2017-09-13] MEDS: NICOTINE 7 MG/24HR PATCH TD SCH (10:59)
[2017-09-13] MEDS: MULTIVITAMINS,THERAPEUTIC TABLET PO SCH (10:59)
[2017-09-13] MEDS: HYDROCHLOROTHIAZIDE 25 MG TABLET PO SCH (11:00)
[2017-09-13] MEDS: FAMOTIDINE 20 MG TABLET PO SCH ×2 (11:00→20:31)
--- NOTE | 2017-09-13 11:00 | NUR ---
AMB WITH PHYSICAL THERAPY USE FWW DOING WELL NO PAIN OR SOB AT THIS TIME AND UP IN CHAIR
--- NOTE | 2017-09-13 17:00 | NUR ---
STABLE HEMODYNAMIC S,PAIN UNDER CONTROL NO ACUTE DISTRESS SAFETY MEASURE PROVIDED BED ALARM ON AND CALL LIGHT IN REACH
--- NOTE | 2017-09-13 19:31 | NUR ---
RECEIVED SHIFT REPORT FROM GEORGE MORRELL. PT IN BED, NO COMPLAINTS OF PAIN, C/P, SOB, N/V. CALL LIGHT WITHIN REACH WITH BED ALARM ON. PT IS ON NSR ON TELE MONITORING. FWW AT BEDSIDE, PT INSTRUCTED TO USE CALL LIGHT WHEN GETTING OUT OF BED.
[2017-09-13] MEDS: ATORVASTATIN 40 MG TABLET PO SCH (20:31)
--- NOTE | 2017-09-13 22:20 | NUR ---
PT SINUS TACHY ON TELE MONITORING. V/S 126/66, HR 130, RR 18, SPO2 98% ON ROOM AIR. PT DENIES PAIN, C/P, SOB, N/V. PT AMBULATED TO RESTROOM USING FWW. WILL CONTINUE TO MONITOR V/S AND TELE MONITORING. PT IS IN BED RESTING COMFORTABLY.
--- NOTE | 2017-09-13 22:20 | NUR ---
PT IN ATRIAL TACH ON TELE MONITORING. CONVERTING IN AND OUT OF UNSUSTAINED A FIB. PT DENIES PAIN, C/P, SOB, N/V.
--- NOTE | 2017-09-13 22:50 | NUR ---
DR. ESTRADA NOTIFIED OF PT'S STATUS, RECEIVED ORDERS TO ADMIN 150 MG AMIODARONE BOLUS X 1 NOW AND TO FOLLOW DRIP PROTOCOL IF PT CONVERTS BACK INTO A FIB. PT STILL IN STABLE CONDITION, DENIES ANY DISCOMFORT.
--- NOTE | 2017-09-13 22:50 | NUR ---
PT HR REMAINS ELEVATED AT 134, DENIES ANY DISCOMFORT. PT ADMIN O2 AT 2 LPM VIA N/C.
[2017-09-13] MEDS ORDERED: AMIODARONE HCL IV 150 MG in IV DEXTROSE 5% 100 ML IV ONE (23:00)
--- NOTE | 2017-09-13 23:15 | NUR ---
Received pt via bed from Telemetry Floor Room 226 as CASSIE status to CCU Room 3 in guarded condition. Pt accompanied by Tele RNs and ASSISTANT EXECUTIVE HOUSEKEEPER. Pt awake, alert, anxious. In no apparent acute distress. Plans of care and unit orientation done. Pt appears more relaxed with reassurance and explanations. Please see CASSIE flowsheet for assessment and clinical data.
--- NOTE | 2017-09-13 23:15 | NUR ---
PT TRANS TO CCU FOR CLOSER MONITORING AND AMIO DRIP PROTOCOL. PT IN STABLE CONDITION, DENIES PAIN, C/P, SOB, N/V. REPORT GIVEN TO GEORGE BENNETT. DR MICHAEL NOTIFIED.
[2017-09-13] MEDS ORDERED: AMIODARONE HCL 150 MG/3 ML VIAL IV ONE ×2 (23:27)
--- NOTE | 2017-09-13 23:40 | NUR ---
SABRINA, DAUGHTER, WAS NOTIFIED OF PT'S TRANSFER.
--- NOTE | 2017-09-13 23:40 | NUR ---
Monitor remains uncontrolled AFib up to 150's then slows down to SR 80's. Pt remains asymptomatic. Denies chest pain/discomfort. Resp easy and regular with O2 sats 98% on O2 2L/min. Stated "My heart is overworked from these frequent trips to the bathroom from the Lasix that they gave me." Started on Amiodarone 150 mg IV bolus; Llanos Fr. 16 inserted aseptically and atraumatically with immediate return of clear pale yellow urine.
[2017-09-14] VITALS (16 sets, daily range): BP systolic 120–159; BP diastolic 45–83
[2017-09-14] MEDS ORDERED: AMIODARONE HCL 150 MG/3 ML VIAL IV ONE (00:03)
[2017-09-14] MEDS ORDERED: AMIODARONE HCL IV 900 MG in IV DEXTROSE 5% 482 ML IV PRN ×2 (00:15→06:00)
--- NOTE | 2017-09-14 02:00 | NUR ---
Monitor showing mostly SR rate 70's after Amiodarone bolus and on maintenance Amio drip per protocol. Pt states feeling much better. Very grateful and appreciative to staff. Encouraged to sleep.
--- NOTE | 2017-09-14 04:00 | NUR ---
Pt barely sleeping; worried about situation upon discharge. Social Service consult requested.
[2017-09-14 04:58] LABS: BASOPHILS # (AUTO) 0.1 K/uL (0.0-8.0); BASOPHILS % (AUTO) 0.6 % (0.0-2.0); EOSINOPHILS # (AUTO) 0.1 K/uL (0.0-0.7); EOSINOPHILS % (AUTO) 1.3 % (0.0-7.0); HEMATOCRIT 41.5 % (31.2-41.9); LYMPHOCYTES # (AUTO) 2.2 K/uL (20.0-40.0); LYMPHOCYTES % (AUTO) 25.4 % (20.5-51.5); MEAN CORPUSCULAR HGB CONC 34 g/dL (32.3-35.6); MEAN CORPUSCULAR VOLUME 89.3 fL (75.5-95.3); MONOCYTES # (AUTO) 0.9 K/uL (2.0-10.0); NEUTROPHILS # (AUTO) 5.5 K/uL (1.8-8.9); NEUTROPHILS % (AUTO) 62.7 % (38.5-71.5); PLATELET COUNT (AUTO) 110 K/uL (179-408); RED BLOOD CELL COUNT(AUTO) 4.65 MIL/uL (3.63-4.92); WHITE BLOOD COUNT (AUTO) 8.7 K/uL (3.8-11.8)
[2017-09-14 05:11] LABS: ALANINE AMINOTRANSFERASE 30 U/L (14-59); ALKALINE PHOSPHATASE 57 U/L (50-136); ASPARTATE AMINOTRANSFERASE 16 U/L (15-37); BILIRUBIN,TOTAL 0.8 mg/dL (0.2-1.0); CARBON DIOXIDE 30 mmol/L (21-32); CHLORIDE 103 mmol/L (98-107); CREATININE 0.8 mg/dL (0.6-1.3); GLUCOSE 125 mg/dL (74-106); PHOSPHOROUS 4.6 mg/dL (2.5-4.9); POTASSIUM 3.2 mmol/L (3.5-5.1); TOTAL PROTEIN, SERUM 5.9 g/dL (6.4-8.2); UREA NITROGEN, BLOOD 10 mg/dL (7-18)
[2017-09-14] MEDS: LEVOTHYROXINE SODIUM 25 MCG TABLET PO SCH (06:57)
--- NOTE | 2017-09-14 07:00 | NUR ---
Monitor has been sinus rhythm since 020 with no further episode of rapid AFib. In good spirits. Please see CASSIE flowsheet for trends and clinical data.
[2017-09-14] MEDS: FAMOTIDINE 20 MG TABLET PO SCH ×2 (08:07→22:18)
[2017-09-14] MEDS: ASPIRIN 81 MG TAB.CHEW PO SCH (08:07)
[2017-09-14] MEDS: LACTOBACILLUS RHAMNOSUS GG 1 EACH CAPSULE PO SCH (08:07)
[2017-09-14] MEDS: MULTIVITAMINS,THERAPEUTIC TABLET PO SCH (08:07)
[2017-09-14] MEDS: HYDROCHLOROTHIAZIDE 25 MG TABLET PO SCH (08:08)
[2017-09-14] MEDS: LOSARTAN POTASSIUM 50 MG TABLET PO SCH ×2 (08:08→22:19)
[2017-09-14] MEDS: CARVEDILOL 3.125 MG TABLET PO SCH ×2 (08:10→17:24)
[2017-09-14] MEDS: ISOSORBIDE MONONITRATE 60 MG TAB.SR.24H PO SCH (08:10)
[2017-09-14] MEDS: NICOTINE 7 MG/24HR PATCH TD SCH (08:17)
--- NOTE | 2017-09-14 08:57 | NUR ---
Dr. Boss here to see pt. Full report given. New orders received.
[2017-09-14] MEDS ORDERED: Medication Not On Formulary EA (Rosuvastatin Calcium (Crestor) 40 MG) PO SCH (09:00)
[2017-09-14] MEDS ORDERED: POTASSIUM CHLORIDE 20 MEQ POWDER PACKET PO ONE (09:00)
--- NOTE | 2017-09-14 10:39 | NUR ---
Spoke with Dr. Boss on the telephone regarding pt's complaint of constipation. New orders received.
[2017-09-14] MEDS ORDERED: BISACODYL 10 MG SUPP.RECT RC ONE (10:45)
[2017-09-14] MEDS: RIVAROXABAN 10 MG TABLET PO SCH (18:15)
--- NOTE | 2017-09-14 19:30 | NUR ---
Pt awake and alert. In good spirits and states feeling much better today. Very appreciative of care. Informed of telemetry status and of plan to transfer to Telemetry floor. Noted kerlix dressing on left forearm reportedly previous site of Amiodarone IV. Declined further inspection/observation of site stating "It's OK now. Bubba the (Day) nurse already fixed it." Left arm kept elevated on pillows. Resp easy and regular. Monitor remains SR without ectopy. Await room assignment.
--- NOTE | 2017-09-14 20:40 | NUR ---
PT TRANSFERRED TO TELEMETRY UNIT IN ROOM 218 STABLE CONDITION. ALL BELONGINGS AND VALUABLES GIVEN.
--- NOTE | 2017-09-14 21:00 | NUR ---
RECEIVED PT AWAKE, ALERT, ORIENTEDX4 VIA WHEELCHAIR FROM CCU. PT SHOWS NO SIGNS OF DISTRESS. PT IV INTACT AND PATENT. PT ADMITTED TO TELEMETRY SHOWING SINUS RHYTHM . PENITENTIARY ASSESSMENT DONE. PT HAVE REDNESS ON LEFT ARM AND RIGHT ARM WHICH I TOOK A PICTURE. PT ALSO HAVE REDNESS ON RIGHT BUTTOCK. CALL LIGHT WITHIN REACH. WILL CONTINUE TO MONITOR.
[2017-09-14] MEDS: AMIODARONE HCL 200 MG TABLET PO SCH (22:18)
[2017-09-14] MEDS: ATORVASTATIN 40 MG TABLET PO SCH (22:19)
--- NOTE | 2017-09-14 23:00 | NUR ---
PT WAS SEEN BY REGARDING HER COMPLAIN ON LEFT ARM REDNESS. GAVE COLD COMPRESS AND ADVISE PT TO ELEVATE HER ARM FOR COMFORT. WILL CONTINUE TO MONITOR.
[2017-09-15] VITALS: BP 131/59
[2017-09-15 04:00] VITALS: BP 149/63
[2017-09-15] MEDS: LEVOTHYROXINE SODIUM 25 MCG TABLET PO SCH (06:00)
--- NOTE | 2017-09-15 06:04 | NUR ---
PT SLEPT THROUGHOUT THE SHIFT. PT COOPERATIVE WITH CARE. IV INTACT AND PATENT.ALEJANDRE CATHETER INTACT. SHOWS NO SIGNS OF DISTRESS. PRESCRIBED MEDICATION GIVEN AND PT TOLERATED IT WELL. SAFETY AND COMFORT PROVIDED. ALL NEEDS ARE MET. WILL ENDORSE ACCORDINGLY.
--- NOTE | 2017-09-15 07:15 | NUR ---
Received pt sleeping in bed, no immediate s/s of SOB, distress, discomfort or pain.
--- NOTE | 2017-09-15 08:02 | NUR ---
Seen and evaluated by DR. Gibson. Possible discharge today with after removal of Llanos cath and with medical clearance from material scheduler
[2017-09-15] MEDS ORDERED: CARV3.122 PO (08:04)
[2017-09-15] MEDS ORDERED: AMIO200T6 PO (08:04)
[2017-09-15] MEDS ORDERED: RIVA10TA PO (08:04)
[2017-09-15] MEDS: CARVEDILOL 3.125 MG TABLET PO SCH ×2 (08:15→17:43)
[2017-09-15] MEDS: LOSARTAN POTASSIUM 50 MG TABLET PO SCH (09:00)
[2017-09-15] MEDS: HYDROCHLOROTHIAZIDE 25 MG TABLET PO SCH (09:00)
[2017-09-15] MEDS: ISOSORBIDE MONONITRATE 60 MG TAB.SR.24H PO SCH (09:00)
[2017-09-15] MEDS: MULTIVITAMINS,THERAPEUTIC TABLET PO SCH (09:30)
[2017-09-15] MEDS: LACTOBACILLUS RHAMNOSUS GG 1 EACH CAPSULE PO SCH (09:30)
[2017-09-15] MEDS: AMIODARONE HCL 200 MG TABLET PO SCH (09:30)
[2017-09-15] MEDS: FAMOTIDINE 20 MG TABLET PO SCH (09:30)
[2017-09-15] MEDS: NICOTINE 7 MG/24HR PATCH TD SCH (09:33)
--- NOTE | 2017-09-15 11:14 | NUR ---
Admit to orders added. Pt has was admitted to [facility] since September 12, 2017
[2017-09-15 11:58] VITALS: BP 140/69
--- NOTE | 2017-09-15 14:26 | NUR ---
Appointment made with computer game programmer DR Tamayo on Sep 22 at 2:30p, spoke to Daphne.
[2017-09-15 16:01] VITALS: BP 130/70
--- NOTE | 2017-09-15 17:17 | NUR ---
Surgical Aides Teacher office contacted and left a message regarding the pt waiting on cardiac clearance for discharge
[2017-09-15 17:43] VITALS: BP 154/70
[2017-09-15] MEDS: RIVAROXABAN 10 MG TABLET PO SCH (17:44)
--- NOTE | 2017-09-15 18:47 | NUR ---
Pt has been discharged with orders from Dr. Gibson this morning. Dr. Tamayo gave medical clearance. Pt signed all discharge papers and personal belonging list. ID and IV line removed. Pt left with appointment to DR. Gibson and Dr. Tamayo. Pharmacist called in regards to need medications. Pictures or the right and left arm taken. Pt left in stable condition, A & O times 4. Pt noted to void after Llanos cath was removed this morning
== END 2017-09-15 18:40 | disposition home health service (06) | DRG 300 ==
LOC: ER 07:59 → TELE 11:07 → CCU 09-13 23:11 → MED 09-14 20:40 → TELE 09-15 00:03
PROVIDERS: ADMIT Internal Medicine; ATTEND Internal Medicine
DX: I87.2 Venous insufficiency (chronic) (peripheral) (principal); E46 Unspecified protein-calorie malnutrition; I48.0 Paroxysmal atrial fibrillation; E03.9 Hypothyroidism, unspecified; D69.6 Thrombocytopenia, unspecified; E78.5 Hyperlipidemia, unspecified; E87.6 Hypokalemia; R53.81 Other malaise; I73.9 Peripheral vascular disease, unspecified; Z68.26 Body mass index [BMI] 26.0-26.9, adult; I10 Essential (primary) hypertension
CPT/HCPCS: 36415; 70030-TC; 71045; 83605; 83735; 84100; 84443; 85025; 85730; 87040; 87086; 93005; 93307; A4663; A9150; J0282; J2405; J3475; J7030; J7040; J7060; J8597

== ENCOUNTER 2017-09-24 12:54 | Inpatient (IN) | payer MEDICARE, MEDICAID ==
[~2017-09-24] VITALS: Ht 167.6 cm; Wt 74.8 kg
[~2017-09-24 12:54] MED LIST changes: +AMIO200T6 PO; -CARV3.12 PO; +CARV3.122 PO; -Isosorbide Mononitrate PO; -LIDO30AD10 TD; -NAPR-1009 PO; -PREG50CA PO; +RIVA10TA PO
[2017-09-24] MEDS ORDERED: IV NORMAL SALINE 500 ML BAG IV ONE (13:30)
[2017-09-24 13:46] LABS: BASOPHILS # (AUTO) 0.1 K/uL (0.0-8.0); BASOPHILS % (AUTO) 0.6 % (0.0-2.0); EOSINOPHILS # (AUTO) 0.1 K/uL (0.0-0.7); EOSINOPHILS % (AUTO) 1.2 % (0.0-7.0); HEMATOCRIT 31.4 % (31.2-41.9); HEMOGLOBIN 10.8 g/dL (10.9-14.3); LYMPHOCYTES # (AUTO) 2.2 K/uL (20.0-40.0); LYMPHOCYTES % (AUTO) 24.1 % (20.5-51.5); MEAN CORPUSCULAR HEMOGLOBIN 31.4 uug (24.7-32.8); MEAN CORPUSCULAR HGB CONC 34 g/dL (32.3-35.6); MEAN CORPUSCULAR VOLUME 91.5 fL (75.5-95.3); MONOCYTES # (AUTO) 0.6 K/uL (2.0-10.0); MONOCYTES % (AUTO) 6.7 % (0.0-11.0); NEUTROPHILS # (AUTO) 6.1 K/uL (1.8-8.9); NEUTROPHILS % (AUTO) 67.4 % (38.5-71.5); RED BLOOD CELL COUNT(AUTO) 3.43 MIL/uL (3.63-4.92)
[2017-09-24 13:53] LABS: PLATELET COUNT (AUTO) 91 K/uL (179-408)
[2017-09-24 13:57] LABS: CARBON DIOXIDE 28 mmol/L (21-32); CHLORIDE 107 mmol/L (98-107); CREATININE 0.9 mg/dL (0.6-1.3); GLUCOSE 153 mg/dL (74-106); POTASSIUM 3.6 mmol/L (3.5-5.1); UREA NITROGEN, BLOOD 16 mg/dL (7-18)
[2017-09-24 14:03] LABS: ALANINE AMINOTRANSFERASE 37 U/L (14-59); ALKALINE PHOSPHATASE 50 U/L (50-136); ASPARTATE AMINOTRANSFERASE 20 U/L (15-37); BILIRUBIN,DIRECT 0.1 mg/dL (0.0-0.2); BILIRUBIN,TOTAL 0.4 mg/dL (0.2-1.0); TOTAL PROTEIN, SERUM 5.4 g/dL (6.4-8.2)
[2017-09-24 14:10] LABS: *OCCULT BLOOD STOOL POSITIVE (NEGATIVE)
[2017-09-24 15:50] VITALS: BP 154/55
[2017-09-24] MEDS ORDERED: MAGNESIUM HYDROXIDE 30 ML LIQUID UDC PO PRN (17:00)
[2017-09-24] MEDS ORDERED: Z GUARD REMEDY PASTE 57 GM TUBE TOP PRN (17:00)
[2017-09-24] MEDS ORDERED: ZOLPIDEM 5 MG TABLET PO PRN (17:00)
[2017-09-24] MEDS ORDERED: ACETAMINOPHEN 325 MG TABLET PO PRN (17:00)
[2017-09-24] MEDS: LOSARTAN POTASSIUM 50 MG TABLET PO SCH (17:18)
[2017-09-24] MEDS ORDERED: CARVEDILOL 3.125 MG TABLET PO SCH (18:00)
[2017-09-24 19:36] VITALS: BP 121/60
[2017-09-24] MEDS: PANTOPRAZOLE SODIUM 40 MG VIAL IV SCH (20:09)
[2017-09-24] MEDS: AMIODARONE HCL 200 MG TABLET PO SCH (20:15)
[2017-09-24 20:55] LABS: BASOPHILS % (AUTO) 0.6 % (0.0-2.0); EOSINOPHILS # (AUTO) 0.1 K/uL (0.0-0.7); HEMOGLOBIN 10.5 g/dL (10.9-14.3); LYMPHOCYTES # (AUTO) 2.6 K/uL (20.0-40.0); LYMPHOCYTES % (AUTO) 31.6 % (20.5-51.5); MEAN CORPUSCULAR HEMOGLOBIN 31.1 uug (24.7-32.8); MEAN CORPUSCULAR HGB CONC 34 g/dL (32.3-35.6); MEAN CORPUSCULAR VOLUME 92.2 fL (75.5-95.3); MONOCYTES # (AUTO) 0.7 K/uL (2.0-10.0); MONOCYTES % (AUTO) 9.1 % (0.0-11.0); NEUTROPHILS # (AUTO) 4.8 K/uL (1.8-8.9); NEUTROPHILS % (AUTO) 57.7 % (38.5-71.5); PLATELET COUNT (AUTO) 81 K/uL (179-408); RED BLOOD CELL COUNT(AUTO) 3.37 MIL/uL (3.63-4.92); WHITE BLOOD COUNT (AUTO) 8.2 K/uL (3.8-11.8)
[2017-09-24 23:30] VITALS: BP 157/70
[2017-09-24] MEDS: ONDANSETRON 4 MG/2 ML VIAL IV PRN (23:41)
[2017-09-25 03:43] VITALS: BP 140/60
[2017-09-25 05:54] LABS: BASOPHILS % (AUTO) 0.7 % (0.0-2.0); EOSINOPHILS # (AUTO) 0.1 K/uL (0.0-0.7); EOSINOPHILS % (AUTO) 1.1 % (0.0-7.0); HEMATOCRIT 30.9 % (31.2-41.9); HEMOGLOBIN 10.5 g/dL (10.9-14.3); LYMPHOCYTES # (AUTO) 2.3 K/uL (20.0-40.0); LYMPHOCYTES % (AUTO) 30.4 % (20.5-51.5); MEAN CORPUSCULAR HEMOGLOBIN 31.4 uug (24.7-32.8); MEAN CORPUSCULAR HGB CONC 34 g/dL (32.3-35.6); MEAN CORPUSCULAR VOLUME 92.7 fL (75.5-95.3); MONOCYTES # (AUTO) 0.6 K/uL (2.0-10.0); MONOCYTES % (AUTO) 8.2 % (0.0-11.0); NEUTROPHILS # (AUTO) 4.5 K/uL (1.8-8.9); NEUTROPHILS % (AUTO) 59.6 % (38.5-71.5); PLATELET COUNT (AUTO) 79 K/uL (179-408); RED BLOOD CELL COUNT(AUTO) 3.33 MIL/uL (3.63-4.92); WHITE BLOOD COUNT (AUTO) 7.5 K/uL (3.8-11.8)
[2017-09-25] MEDS: LEVOTHYROXINE SODIUM 25 MCG TABLET PO SCH (06:09)
[2017-09-25 06:22] LABS: CARBON DIOXIDE 30 mmol/L (21-32); CHLORIDE 112 mmol/L (98-107); CHOLESTEROL 101 mg/dL (<200); GLUCOSE 87 mg/dL (74-106); HDL CHOLESTEROL 51 mg/dL (40-60); MAGNESIUM 1.8 mg/dL (1.8-2.4); PHOSPHOROUS 3.9 mg/dL (2.5-4.9); POTASSIUM 4.1 mmol/L (3.5-5.1); TRIGLYCERIDES 31 MG/DL (30-150); UREA NITROGEN, BLOOD 12 mg/dL (7-18)
[2017-09-25] MEDS: PANTOPRAZOLE SODIUM 40 MG VIAL IV SCH ×2 (08:00→20:23)
[2017-09-25] MEDS: CARVEDILOL 6.25 MG TABLET PO SCH ×2 (08:00→18:03)
[2017-09-25] MEDS: ISOSORBIDE MONONITRATE 60 MG TAB.SR.24H PO SCH (08:01)
[2017-09-25] MEDS ORDERED: ASPIRIN 81 MG TAB.CHEW PO SCH (09:00)
[2017-09-25] MEDS ORDERED: Medication Not On Formulary EA (Rosuvastatin Calcium (Crestor) 40 MG) PO SCH (09:00)
[2017-09-25] MEDS: AMIODARONE HCL 200 MG TABLET PO SCH ×2 (09:33→20:23)
[2017-09-25] MEDS: LOSARTAN POTASSIUM 50 MG TABLET PO SCH ×2 (09:34→17:02)
[2017-09-25 11:45] VITALS: BP 140/59
[2017-09-25] MEDS: ONDANSETRON 4 MG/2 ML VIAL IV PRN ×2 (15:41→22:55)
[2017-09-25 16:10] VITALS: BP 150/59
[2017-09-25 19:36] VITALS: BP 116/46
[2017-09-25] MEDS: ATORVASTATIN 40 MG TABLET PO SCH (20:23)
[2017-09-25 23:41] VITALS: BP 149/69
[2017-09-26 03:45] VITALS: BP 149/56
[2017-09-26] MEDS: LEVOTHYROXINE SODIUM 25 MCG TABLET PO SCH (06:19)
[2017-09-26 08:00] VITALS: BP 151/50
[2017-09-26] MEDS: CARVEDILOL 6.25 MG TABLET PO SCH ×2 (08:31→17:05)
[2017-09-26] MEDS: ISOSORBIDE MONONITRATE 60 MG TAB.SR.24H PO SCH (08:31)
[2017-09-26] MEDS: LOSARTAN POTASSIUM 50 MG TABLET PO SCH ×2 (08:31→17:05)
[2017-09-26] MEDS: AMIODARONE HCL 200 MG TABLET PO SCH ×2 (08:31→20:36)
[2017-09-26] MEDS: PANTOPRAZOLE SODIUM 40 MG VIAL IV SCH ×2 (08:32→20:36)
[2017-09-26 11:18] VITALS: BP 127/86
[2017-09-26 12:01] LABS: BASOPHILS % (AUTO) 0.6 % (0.0-2.0); EOSINOPHILS # (AUTO) 0.1 K/uL (0.0-0.7); EOSINOPHILS % (AUTO) 1.4 % (0.0-7.0); HEMATOCRIT 31.6 % (31.2-41.9); HEMOGLOBIN 10.7 g/dL (10.9-14.3); LYMPHOCYTES # (AUTO) 1.9 K/uL (20.0-40.0); LYMPHOCYTES % (AUTO) 25.9 % (20.5-51.5); MEAN CORPUSCULAR HEMOGLOBIN 31.3 uug (24.7-32.8); MEAN CORPUSCULAR HGB CONC 34 g/dL (32.3-35.6); MEAN CORPUSCULAR VOLUME 92.6 fL (75.5-95.3); MONOCYTES # (AUTO) 0.6 K/uL (2.0-10.0); MONOCYTES % (AUTO) 7.4 % (0.0-11.0); NEUTROPHILS # (AUTO) 4.9 K/uL (1.8-8.9); NEUTROPHILS % (AUTO) 64.7 % (38.5-71.5); PLATELET COUNT (AUTO) 80 K/uL (179-408); RED BLOOD CELL COUNT(AUTO) 3.41 MIL/uL (3.63-4.92); WHITE BLOOD COUNT (AUTO) 7.5 K/uL (3.8-11.8)
[2017-09-26 12:16] LABS: ALANINE AMINOTRANSFERASE 33 U/L (14-59); ALKALINE PHOSPHATASE 43 U/L (50-136); ASPARTATE AMINOTRANSFERASE 20 U/L (15-37); BILIRUBIN,TOTAL 0.6 mg/dL (0.2-1.0); CARBON DIOXIDE 26 mmol/L (21-32); CHLORIDE 107 mmol/L (98-107); GLUCOSE 88 mg/dL (74-106); MAGNESIUM 1.9 mg/dL (1.8-2.4); PHOSPHOROUS 4.2 mg/dL (2.5-4.9); POTASSIUM 3.8 mmol/L (3.5-5.1); TOTAL PROTEIN, SERUM 5.3 g/dL (6.4-8.2); UREA NITROGEN, BLOOD 7 mg/dL (7-18)
[2017-09-26 13:25] LABS: EOSINOPHILS % (MANUAL) 2 % (0-8); LYMPHOCYTES % (MANUAL) 25 % (20-40); MONOCYTES % (MANUAL) 8 % (2-10); NEUTROPHILS % (MANUAL) 65 % (42-75)
[2017-09-26] MEDS: ONDANSETRON 4 MG/2 ML VIAL IV PRN (14:24)
[2017-09-26 15:38] VITALS: BP 165/53
[2017-09-26] MEDS ORDERED: GOLYTELY 4000 ML BOTTLE PO ONE (17:00)
[2017-09-26 19:00] VITALS: BP 134/63
[2017-09-26] MEDS: ATORVASTATIN 40 MG TABLET PO SCH (20:36)
[2017-09-27] MEDS: ONDANSETRON 4 MG/2 ML VIAL IV PRN (01:28)
[2017-09-27 04:00] VITALS: BP 142/57
[2017-09-27] MEDS: LEVOTHYROXINE SODIUM 25 MCG TABLET PO SCH (06:27)
[2017-09-27 06:43] LABS: ALANINE AMINOTRANSFERASE 32 U/L (14-59); ALKALINE PHOSPHATASE 45 U/L (50-136); ASPARTATE AMINOTRANSFERASE 16 U/L (15-37); BILIRUBIN,TOTAL 0.5 mg/dL (0.2-1.0); CARBON DIOXIDE 28 mmol/L (21-32); CHLORIDE 108 mmol/L (98-107); GLUCOSE 79 mg/dL (74-106); MAGNESIUM 1.7 mg/dL (1.8-2.4); PHOSPHOROUS 4.6 mg/dL (2.5-4.9); POTASSIUM 3.4 mmol/L (3.5-5.1); TOTAL PROTEIN, SERUM 5.1 g/dL (6.4-8.2); UREA NITROGEN, BLOOD 7 mg/dL (7-18)
[2017-09-27 07:16] LABS: BASOPHILS # (AUTO) 0.1 K/uL (0.0-8.0); BASOPHILS % (AUTO) 0.9 % (0.0-2.0); EOSINOPHILS # (AUTO) 0.1 K/uL (0.0-0.7); EOSINOPHILS % (AUTO) 1.9 % (0.0-7.0); HEMATOCRIT 30.8 % (31.2-41.9); HEMOGLOBIN 10.4 g/dL (10.9-14.3); LYMPHOCYTES # (AUTO) 1.7 K/uL (20.0-40.0); LYMPHOCYTES % (AUTO) 26.9 % (20.5-51.5); MEAN CORPUSCULAR HEMOGLOBIN 31.3 uug (24.7-32.8); MEAN CORPUSCULAR HGB CONC 34 g/dL (32.3-35.6); MEAN CORPUSCULAR VOLUME 92.5 fL (75.5-95.3); MONOCYTES # (AUTO) 0.6 K/uL (2.0-10.0); MONOCYTES % (AUTO) 8.5 % (0.0-11.0); NEUTROPHILS % (AUTO) 61.8 % (38.5-71.5); PLATELET COUNT (AUTO) 82 K/uL (179-408); RED BLOOD CELL COUNT(AUTO) 3.32 MIL/uL (3.63-4.92); WHITE BLOOD COUNT (AUTO) 6.5 K/uL (3.8-11.8)
[2017-09-27] MEDS: PANTOPRAZOLE SODIUM 40 MG VIAL IV SCH ×2 (08:27→21:13)
[2017-09-27] MEDS: CARVEDILOL 6.25 MG TABLET PO SCH ×2 (08:28→17:12)
[2017-09-27] MEDS: AMIODARONE HCL 200 MG TABLET PO SCH ×2 (08:28→21:14)
[2017-09-27] MEDS: ISOSORBIDE MONONITRATE 60 MG TAB.SR.24H PO SCH (08:29)
[2017-09-27] MEDS: LOSARTAN POTASSIUM 50 MG TABLET PO SCH ×2 (08:29→17:12)
[2017-09-27 10:03] LABS: EOSINOPHILS % (MANUAL) 3 % (0-8); LYMPHOCYTES % (MANUAL) 31 % (20-40); MONOCYTES % (MANUAL) 4 % (2-10); NEUTROPHILS % (MANUAL) 62 % (42-75)
[2017-09-27 11:30] VITALS: BP 110/54
[2017-09-27] MEDS ORDERED: POTASSIUM CHLORIDE 20 MEQ TAB.PRT.SR PO ONE (12:00)
[2017-09-27] MEDS ORDERED: MAGNESIUM OXIDE 400 MG TABLET PO ONE (12:00)
[2017-09-27] MEDS ORDERED: IRR STERIL WATER FOR IRR 1000 ML BOTTLE IR ONE (12:34)
[2017-09-27] MEDS ORDERED: PROPOFOL 200 MG/20 ML BOTTLE IV ONE (12:34)
[2017-09-27] MEDS ORDERED: SIMETHICONE 40 MG/0.6 ML 30 ML BOTTLE MC ONE (12:34)
[2017-09-27] MEDS ORDERED: IV LACTATED RINGERS SOLUTION 1,000 ML BAG IV ONE (12:34)
[2017-09-27] MEDS ORDERED: [UNRECOGNIZED DRUG - OTHER] IR ONE (12:34)
[2017-09-27] MEDS ORDERED: LIDOCAINE HCL 2% 20 ML VIAL MC ONE (12:34)
[2017-09-27] MEDS ORDERED: LOPERAMIDE HCL 2 MG CAPSULE PO PRN (15:30)
[2017-09-27 16:05] VITALS: BP 147/54
[2017-09-27 20:40] VITALS: BP 124/43
[2017-09-27] MEDS: ATORVASTATIN 40 MG TABLET PO SCH (21:13)
[2017-09-28 05:38] VITALS: BP 143/55
[2017-09-28] MEDS: LEVOTHYROXINE SODIUM 25 MCG TABLET PO SCH (06:33)
[2017-09-28 07:03] LABS: CARBON DIOXIDE 28 mmol/L (21-32); CHLORIDE 109 mmol/L (98-107); GLUCOSE 85 mg/dL (74-106); POTASSIUM 3.9 mmol/L (3.5-5.1); UREA NITROGEN, BLOOD 8 mg/dL (7-18)
[2017-09-28] MEDS: PANTOPRAZOLE SODIUM 40 MG VIAL IV SCH (08:01)
[2017-09-28] MEDS: CARVEDILOL 6.25 MG TABLET PO SCH (08:02)
[2017-09-28] MEDS: AMIODARONE HCL 200 MG TABLET PO SCH (08:02)
[2017-09-28] MEDS: ISOSORBIDE MONONITRATE 60 MG TAB.SR.24H PO SCH (08:03)
[2017-09-28] MEDS: LOSARTAN POTASSIUM 50 MG TABLET PO SCH (08:03)
[2017-09-28 11:06] VITALS: BP 113/71
[2017-09-28] MEDS ORDERED: AMIO200T6 PO (11:45)
== END 2017-09-28 13:00 | disposition home or self-care (01) | DRG 378 ==
LOC: ER 12:57 → TELE-TD 14:46 → TELE 15:50 → MED 09-27 21:34
PROVIDERS: ADMIT Internal Medicine; ATTEND Internal Medicine
PROC: 0DB48ZX Excision of Esophagogastric Junction, Via Natural or Artificial Opening Endoscopic, Diagnostic (ICD-10-PCS; principal; 2017-09-24)
PROC: 0DB68ZX Excision of Stomach, Via Natural or Artificial Opening Endoscopic, Diagnostic (ICD-10-PCS; 2017-09-24)
PROC: 0DJD8ZZ Inspection of Lower Intestinal Tract, Via Natural or Artificial Opening Endoscopic (ICD-10-PCS; 2017-09-24)
DX: K29.71 Gastritis, unspecified, with bleeding (principal); D68.69 Other thrombophilia; K57.31 Diverticulosis of large intestine without perforation or abscess with bleeding; K64.8 Other hemorrhoids; K21.9 Gastro-esophageal reflux disease without esophagitis; I48.0 Paroxysmal atrial fibrillation; Z79.01 Long term (current) use of anticoagulants; E03.9 Hypothyroidism, unspecified; I87.2 Venous insufficiency (chronic) (peripheral); R60.0 Localized edema; E78.5 Hyperlipidemia, unspecified; I73.9 Peripheral vascular disease, unspecified; Z95.820 Peripheral vascular angioplasty status with implants and grafts; I11.9 Hypertensive heart disease without heart failure; Q27.33 Arteriovenous malformation of digestive system vessel; Z79.899 Other long term (current) drug therapy; Z79.82 Long term (current) use of aspirin; K76.0 Fatty (change of) liver, not elsewhere classified; K64.4 Residual hemorrhoidal skin tags; D69.6 Thrombocytopenia, unspecified
CPT/HCPCS: 36415; 70030-TC; 71045; 76700; 83735; 84100; 85025; 85730; 86850; 86900; 86901; 88342; 93005; A4217; A4663; C9113; J2405; J3490; J7040; J7120

== ENCOUNTER 2017-11-05 03:49 | Inpatient (IN) | payer MEDICARE, MEDICAID ==
[~2017-11-05] VITALS: Ht 167.6 cm; Wt 71.7 kg
[~2017-11-05 03:49] MED LIST changes: -FLAX100025 PO; +FLAX10003 PO
--- NOTE | 2017-11-05 03:55 | NUR ---
admitted to er-[facility] 4[facility] via ems from home c/o abdminal pain, n/v/diarrhea. dr souza will see pt.
[2017-11-05] MEDS ORDERED: KETOROLAC TROMETHAMINE 15 MG INJ IV ONE (04:30)
[2017-11-05] MEDS ORDERED: METOCLOPRAMIDE HCL 10 MG/2 ML VIAL IV ONE (04:30)
[2017-11-05] MEDS ORDERED: IV NORMAL SALINE 1000 ML BAG IV ONE (04:30)
[2017-11-05] MEDS ORDERED: METOCLOPRAMIDE HCL 10 MG/2 ML VIAL ONE (04:38)
[2017-11-05] MEDS ORDERED: KETOROLAC TROMETHAMINE 15 MG INJ ONE (04:38)
[2017-11-05 05:06] LABS: BASOPHILS % (AUTO) 0.3 % (0.0-2.0); EOSINOPHILS # (AUTO) 0.1 K/uL (0.0-0.7); EOSINOPHILS % (AUTO) 1.4 % (0.0-7.0); HEMATOCRIT 30.8 % (31.2-41.9); HEMOGLOBIN 10.4 g/dL (10.9-14.3); LYMPHOCYTES # (AUTO) 0.9 K/uL (20.0-40.0); LYMPHOCYTES % (AUTO) 9.1 % (20.5-51.5); MEAN CORPUSCULAR HGB CONC 34 g/dL (32.3-35.6); MEAN CORPUSCULAR VOLUME 91.8 fL (75.5-95.3); MONOCYTES # (AUTO) 0.8 K/uL (2.0-10.0); MONOCYTES % (AUTO) 7.7 % (0.0-11.0); NEUTROPHILS # (AUTO) 8.5 K/uL (1.8-8.9); NEUTROPHILS % (AUTO) 81.5 % (38.5-71.5); PLATELET COUNT (AUTO) 88 K/uL (179-408); RED BLOOD CELL COUNT(AUTO) 3.36 MIL/uL (3.63-4.92); WHITE BLOOD COUNT (AUTO) 10.4 K/uL (3.8-11.8)
[2017-11-05 05:13] LABS: CARBON DIOXIDE 27 mmol/L (21-32); CHLORIDE 107 mmol/L (98-107); GLUCOSE 113 mg/dL (74-106); POTASSIUM 3.6 mmol/L (3.5-5.1); UREA NITROGEN, BLOOD 17 mg/dL (7-18)
[2017-11-05 05:18] LABS: ALANINE AMINOTRANSFERASE 24 U/L (14-59); ALKALINE PHOSPHATASE 61 U/L (50-136); ASPARTATE AMINOTRANSFERASE 17 U/L (15-37); BILIRUBIN,DIRECT 0.1 mg/dL (0.0-0.2); BILIRUBIN,TOTAL 0.4 mg/dL (0.2-1.0); LIPASE 74 U/L (73-393); TOTAL PROTEIN, SERUM 5.7 g/dL (6.4-8.2)
--- NOTE | 2017-11-05 05:25 | NUR ---
pt. to xray for ct scan of abd.
[2017-11-05] MEDS ORDERED: IOHEXOL 300MG/ML 100 ML INFUS..BTL ONE (05:26)
[2017-11-05] MEDS ORDERED: IV NORMAL SALINE 250 ML IV ONE (05:26)
[2017-11-05] MEDS ORDERED: SWABABLE VALVE TRANSFER SET EA MC ONE (05:26)
[2017-11-05] MEDS ORDERED: NORMAL SALINE FLUSH 10 ML DISP.SYRIN ONE (05:26)
[2017-11-05] MEDS ORDERED: ONDANSETRON IV *ER 4 MG/2 ML VIAL IV ONE (06:15)
[2017-11-05] MEDS ORDERED: ONDANSETRON 4 MG/2 ML VIAL ONE (06:15)
--- NOTE | 2017-11-05 06:21 | NUR ---
c/o nausea, zofran 4mg ivp given as ordered.
--- NOTE | 2017-11-05 06:57 | NUR ---
pt. is sleeping at this time.
[2017-11-05 07:04] LABS: BAND % (MANUAL) 2 % (0-10); EOSINOPHILS % (MANUAL) 2 % (0-8); LYMPHOCYTES % (MANUAL) 16 % (20-40); MONOCYTES % (MANUAL) 7 % (2-10); NEUTROPHILS % (MANUAL) 73 % (42-75)
--- NOTE | 2017-11-05 07:20 | NUR ---
report given to bartolo nunez.
[2017-11-05] MEDS ORDERED: PIPERACILLIN SODIUM/TAZOBACTAM 3.375 G in IV DEXTROSE 5% 50 ML IV ONE (07:30)
[2017-11-05] MEDS ORDERED: MORPHINE SULFATE 4 MG/1 ML DISP.SYRIN IV ONE (07:30)
[2017-11-05] MEDS ORDERED: LEVOFLOXACIN 750 MG/D5W 150 ML PIGGYBACK IV ONE (07:30)
[2017-11-05] MEDS ORDERED: METRONIDAZOLE 500 MG/NS 100 ML PIGGYBACK IV ONE (07:30)
[2017-11-05] MEDS ORDERED: MORPHINE SULFATE 4 MG/1 ML DISP.SYRIN ONE (07:32)
[2017-11-05] MEDS ORDERED: PIPERACILLIN/TAZOBACTAM/D5W 50 ML IV ONE (07:32)
--- NOTE | 2017-11-05 07:43 | NUR ---
rec'd sbar report from antoine nunez, pt refused morphine, zosyn ivpb infusing, awaiting panel to return call.
[2017-11-05] MEDS ORDERED: PANTOPRAZOLE SODIUM 40 MG VIAL IV ONE (07:45)
[2017-11-05] MEDS ORDERED: PANTOPRAZOLE SODIUM 40 MG VIAL ONE (07:55)
[2017-11-05] MEDS ORDERED: LEVOTHYROXINE SODIUM 25 MCG TABLET PO ONE (08:00)
[2017-11-05] MEDS ORDERED: LEVOTHYROXINE SODIUM 25 MCG TABLET ONE (08:01)
[2017-11-05] MEDS ORDERED: ZOLPIDEM 5 MG TABLET PO PRN (08:45)
[2017-11-05] MEDS ORDERED: MORPHINE SULFATE 2 MG/1 ML DISP.SYRIN IV PRN (08:45)
[2017-11-05] MEDS ORDERED: ACETAMINOPHEN 325 MG TABLET PO PRN (08:45)
[2017-11-05] MEDS ORDERED: Z GUARD REMEDY PASTE 57 GM TUBE TOP PRN (08:45)
[2017-11-05] MEDS ORDERED: ONDANSETRON 4 MG/2 ML VIAL IV PRN (08:45)
[2017-11-05] MEDS ORDERED: MAGNESIUM HYDROXIDE 30 ML LIQUID UDC PO PRN (08:45)
[2017-11-05 08:48] VITALS: BP 118/30
--- NOTE | 2017-11-05 08:52 | NUR ---
Patient received from ER. Oriented to room, all belongings accounted for and Dr. Luna saw patient, see notes.
[2017-11-05] MEDS: LEVOTHYROXINE SODIUM 25 MCG TABLET PO SCH (09:00)
[2017-11-05] MEDS ORDERED: LOSARTAN POTASSIUM 50 MG TABLET PO SCH (09:00)
[2017-11-05] MEDS ORDERED: ASPIRIN 81 MG TAB.CHEW PO SCH (09:00)
[2017-11-05] MEDS ORDERED: Medication Not On Formulary EA (Rosuvastatin Calcium (Crestor) 40 MG) PO SCH (09:00)
[2017-11-05] MEDS ORDERED: Medication Not On Formulary EA (Lactobacillus Combo No.11 (Probiotic) 1 EACH) PO SCH (09:00)
[2017-11-05] MEDS ORDERED: ISOSORBIDE MONONITRATE 60 MG TAB.SR.24H PO SCH (09:00)
[2017-11-05] MEDS ORDERED: AMIODARONE HCL 200 MG TABLET PO SCH (09:00)
[2017-11-05] MEDS: LACTOBACILLUS RHAMNOSUS GG 1 EACH CAPSULE PO SCH (09:15)
[2017-11-05] MEDS ORDERED: CARV6.25 PO (11:37)
[2017-11-05] MEDS ORDERED: LOSA100T15 PO (11:42)
[2017-11-05] MEDS ORDERED: RIVA10TA PO (11:44)
[2017-11-05 11:46] VITALS: BP 144/40
[2017-11-05] MEDS ORDERED: AMIO200T4 PO (11:46)
--- NOTE | 2017-11-05 12:00 | NUR ---
WOUND CARE CONSULT: PT SEEN FOR SKIN ASSESSMENT OF LOWER LEGS PER NURSING STAFF REQUEST. LEFT LOWER LEG HAS PITTING EDEMA (2+) WITH SOME REDNESS. RT LOWER LEG HAS MILD EDEMA. RECOMMEND LEG ELEVATION. PT HAS INCONTINENCE AT TIMES. DISCUSSED SKIN PROTECTION RECOMMENDATIONS WITH NURSING STAFF. WILL SEE PRN. Addendum: 11/05/17 at 1202 by KENYA GONZALEZ RN Amended: Links added.
[2017-11-05] MEDS: PIPERACILLIN/TAZOBACTAM/D5W 2.25 G in PREMIXED 1 EACH IV SCH ×2 (12:22→18:31)
[2017-11-05] MEDS ORDERED: PIPERACILLIN/TAZOBACTAM/D5W 3.375 G in PREMIXED 1 EACH IV SCH (14:00)
[2017-11-05] MEDS: ISOSORBIDE MONONITRATE 60 MG TAB.SR.24H PO SCH (15:08)
[2017-11-05 15:58] VITALS: BP 155/55
[2017-11-05] MEDS: CARVEDILOL 3.125 MG TABLET PO SCH (18:31)
--- NOTE | 2017-11-05 18:43 | NUR ---
Patient has been cooperative with care, all needs met. Patient had 4 episodes of soft stool, dark in color. OB stool sent to lab. Currently patient in bed, no distress noted, bed in low position, side rails upx2. Call light in reach.
[2017-11-05 19:30] VITALS: BP 131/52
[2017-11-05] MEDS: ATORVASTATIN 40 MG TABLET PO SCH (20:23)
[2017-11-05] MEDS: LOSARTAN POTASSIUM 50 MG TABLET PO SCH (20:24)
[2017-11-05 20:25] LABS: *OCCULT BLOOD STOOL POSITIVE (NEGATIVE)
[2017-11-06] MEDS: PIPERACILLIN/TAZOBACTAM/D5W 2.25 G in PREMIXED 1 EACH IV SCH ×4 (00:08→17:57)
[2017-11-06 04:04] VITALS: BP 160/66
--- NOTE | 2017-11-06 05:19 | NUR ---
DENIES PAIN DURING SHIFT. URINE SAMPLE COLLECTED. SENT TO LAB. STILL C/O LOOSE BM X3. CONTINUE ON ATB IV. NO A/E OBSERVED. MONITORED ACCORDINGLY. SAFETY MEASURES RENDERED.
[2017-11-06] MEDS: LEVOTHYROXINE SODIUM 25 MCG TABLET PO SCH (06:01)
[2017-11-06] MEDS: PANTOPRAZOLE SODIUM 40 MG TABLET.DR PO SCH (06:01)
[2017-11-06 06:31] LABS: BASOPHILS % (AUTO) 0.4 % (0.0-2.0); EOSINOPHILS # (AUTO) 0.1 K/uL (0.0-0.7); EOSINOPHILS % (AUTO) 1.5 % (0.0-7.0); HEMATOCRIT 27.6 % (31.2-41.9); HEMOGLOBIN 9.1 g/dL (10.9-14.3); LYMPHOCYTES # (AUTO) 1.6 K/uL (20.0-40.0); LYMPHOCYTES % (AUTO) 31.4 % (20.5-51.5); MEAN CORPUSCULAR HEMOGLOBIN 31.2 uug (24.7-32.8); MEAN CORPUSCULAR HGB CONC 33 g/dL (32.3-35.6); MEAN CORPUSCULAR VOLUME 94.2 fL (75.5-95.3); MONOCYTES # (AUTO) 0.4 K/uL (2.0-10.0); MONOCYTES % (AUTO) 8.6 % (0.0-11.0); NEUTROPHILS % (AUTO) 58.1 % (38.5-71.5); PLATELET COUNT (AUTO) 74 K/uL (179-408); RED BLOOD CELL COUNT(AUTO) 2.93 MIL/uL (3.63-4.92); WHITE BLOOD COUNT (AUTO) 5.1 K/uL (3.8-11.8)
[2017-11-06 06:50] LABS: CARBON DIOXIDE 25 mmol/L (21-32); CHLORIDE 108 mmol/L (98-107); CHOLESTEROL 98 mg/dL (<200); GLUCOSE 90 mg/dL (74-106); HDL CHOLESTEROL 54 mg/dL (40-60); MAGNESIUM 1.8 mg/dL (1.8-2.4); PHOSPHOROUS 3.9 mg/dL (2.5-4.9); POTASSIUM 3.2 mmol/L (3.5-5.1); TRIGLYCERIDES 43 MG/DL (30-150); UREA NITROGEN, BLOOD 9 mg/dL (7-18)
[2017-11-06 07:33] LABS: *BILIRUBIN,URIN NEGATIVE (NEGATIVE); *BLOOD, URINE 1+ (NEGATIVE); *CLARITY,URINE CLEAR (CLEAR); *COLOR,URINE YELLOW (YELLOW); *KETONES,URINE NEGATIVE (NEGATIVE); *PROTEIN,URINE NEGATIVE (NEGATIVE); *UROBILINOGEN,URINE 0.2 E.U./dl (NORMAL); LEUKOCYTE ESTERASE ,URINE TRACE (NEGATIVE); NITRITE, URINE NEGATIVE (NEGATIVE); PH,URINE 5.5 (5.0-8.0); UGLUCOSE NEGATIVE (NEGATIVE)
[2017-11-06 07:35] LABS: BACTERIA,URINE FEW /HPF (NONE SEEN); SQUAMOUS EPITHELIAL CELL,UR FEW /HPF (NONE SEEN); WBC,URINE 0-3 /HPF (0-3)
[2017-11-06 08:01] VITALS: BP 161/65
[2017-11-06] MEDS: LACTOBACILLUS RHAMNOSUS GG 1 EACH CAPSULE PO SCH (09:01)
[2017-11-06 09:02] LABS: EOSINOPHILS % (MANUAL) 2 % (0-8); LYMPHOCYTES % (MANUAL) 31 % (20-40); MONOCYTES % (MANUAL) 8 % (2-10); NEUTROPHILS % (MANUAL) 59 % (42-75)
[2017-11-06] MEDS: CARVEDILOL 3.125 MG TABLET PO SCH ×2 (09:03→17:58)
[2017-11-06] MEDS ORDERED: POTASSIUM CHLORIDE 10 MEQ TAB.PRT.SR PO ONE (09:45)
[2017-11-06] MEDS ORDERED: MORPHINE SULFATE 4 MG/1 ML DISP.SYRIN IV PRN (10:45)
[2017-11-06 11:48] VITALS: BP 152/64
[2017-11-06] MEDS: ISOSORBIDE MONONITRATE 60 MG TAB.SR.24H PO SCH (12:10)
[2017-11-06] MEDS ORDERED: Z GUARD REMEDY PASTE 57 GM TUBE TOP PRN (14:30)
[2017-11-06 16:00] VITALS: BP 130/49
--- NOTE | 2017-11-06 19:35 | NUR ---
RECEIVED PATIENT IN BED, ALERT ORIENTED, NO COMPLAIN OF PAIN, PATIENT CONTINENT OF BOWEL AND BLADDER, AMBULATORY WITH STEADY GAIT, GOES TO TOILET FOR BOWEL ELIMINATION, MD AWARE OF PATIENT MULTIPLE TRIPS TO TOILET FOR BM DUE TO DIVERTICULITIS. CONT ABX FOR DIVERTICULITIS. CALL LIGHT WITHIN REACH.
[2017-11-06 19:45] VITALS: BP 127/48
[2017-11-06] MEDS: LOSARTAN POTASSIUM 50 MG TABLET PO SCH (20:00)
[2017-11-06] MEDS: ATORVASTATIN 40 MG TABLET PO SCH (20:28)
[2017-11-07] MEDS: PIPERACILLIN/TAZOBACTAM/D5W 2.25 G in PREMIXED 1 EACH IV SCH ×5 (01:50→23:18)
[2017-11-07 05:13] VITALS: BP 179/77
[2017-11-07] MEDS: PANTOPRAZOLE SODIUM 40 MG TABLET.DR PO SCH (06:00)
[2017-11-07] MEDS: LEVOTHYROXINE SODIUM 25 MCG TABLET PO SCH (06:00)
[2017-11-07 06:02] LABS: BASOPHILS % (AUTO) 0.6 % (0.0-2.0); EOSINOPHILS # (AUTO) 0.1 K/uL (0.0-0.7); EOSINOPHILS % (AUTO) 1.6 % (0.0-7.0); HEMATOCRIT 28.5 % (31.2-41.9); HEMOGLOBIN 9.3 g/dL (10.9-14.3); LYMPHOCYTES # (AUTO) 1.6 K/uL (20.0-40.0); MEAN CORPUSCULAR HEMOGLOBIN 30.3 uug (24.7-32.8); MEAN CORPUSCULAR HGB CONC 33 g/dL (32.3-35.6); MEAN CORPUSCULAR VOLUME 92.4 fL (75.5-95.3); MONOCYTES # (AUTO) 0.4 K/uL (2.0-10.0); MONOCYTES % (AUTO) 8.6 % (0.0-11.0); NEUTROPHILS # (AUTO) 2.9 K/uL (1.8-8.9); NEUTROPHILS % (AUTO) 58.2 % (38.5-71.5); PLATELET COUNT (AUTO) 79 K/uL (179-408); RED BLOOD CELL COUNT(AUTO) 3.08 MIL/uL (3.63-4.92); WHITE BLOOD COUNT (AUTO) 5.1 K/uL (3.8-11.8)
[2017-11-07 06:14] LABS: IRON, SERUM 20 ug/dL (50-175)
[2017-11-07 06:16] LABS: CARBON DIOXIDE 26 mmol/L (21-32); CHLORIDE 109 mmol/L (98-107); CREATININE 0.9 mg/dL (0.6-1.3); GLUCOSE 83 mg/dL (74-106); MAGNESIUM 1.8 mg/dL (1.8-2.4); PHOSPHOROUS 3.7 mg/dL (2.5-4.9); POTASSIUM 3.2 mmol/L (3.5-5.1); UREA NITROGEN, BLOOD 7 mg/dL (7-18)
--- NOTE | 2017-11-07 06:34 | NUR ---
PATIENT SLEPT MOST OF THE NIGHT, PATIENT HAS TWO LOOSE BM ON THIS SHIFT. DENIES PAIN AT THIS TIME. PATIENT HAS ELEVATED BP ASYMPTOMATIC, RECHECK BP 172/74. WILL MEDICATED PATIENT FOR ELEVATED BP.
[2017-11-07 07:00] VITALS: BP 171/66
[2017-11-07] MEDS: CARVEDILOL 3.125 MG TABLET PO SCH ×2 (07:00→17:13)
--- NOTE | 2017-11-07 07:04 | NUR ---
PATIENT AWAKE, NO HEADACHE, NO DIZZINESS NOTED, PATIENT STATES THAT HER BP ALWAYS RUN HIGH ON 170 SBP, MEDICATED PATIENT FOR ELEVATED BP CURRENT BP 171/66 HR 69, ENDORSED TO NEXT TO MONITOR.
[2017-11-07 07:43] LABS: EOSINOPHILS % (MANUAL) 1 % (0-8); LYMPHOCYTES % (MANUAL) 30 % (20-40); MONOCYTES % (MANUAL) 9 % (2-10); NEUTROPHILS % (MANUAL) 60 % (42-75)
--- NOTE | 2017-11-07 07:45 | NUR ---
RESTING IB BED AWAKE ALERT AND ORIENTED DENIES PAIN OR DISCOMFORTS AT THIS TIME REMAIN ON CLEAR LIQUIDS DIET ORDERED PATIENT MADE COMFORTABLE AND WILL CONTINUE TO OBSERVE.
[2017-11-07] MEDS: LACTOBACILLUS RHAMNOSUS GG 1 EACH CAPSULE PO SCH (08:35)
[2017-11-07] MEDS ORDERED: POTASSIUM CHLORIDE 20 MEQ TAB.PRT.SR PO ONE (10:15)
--- NOTE | 2017-11-07 10:53 | NUR ---
POTASSIUM LEVEL IS 3.0 WITH ORDER FOR POTASSIUM REPLACEMENTS AND NOTED.
[2017-11-07 11:40] VITALS: BP 167/60
[2017-11-07] MEDS: ISOSORBIDE MONONITRATE 60 MG TAB.SR.24H PO SCH (11:56)
--- NOTE | 2017-11-07 11:56 | NUR ---
BLOOD PRESSURE AT THIS TIME IS 167/60 MEDICATED WITH IMDUR ROUTINE ORDER DUE AT THIS TIME WILL CONTINUE TO OBSERVE.
[2017-11-07 15:34] VITALS: BP 173/71
[2017-11-07] MEDS: hydrALAZINE HCL 25 MG TABLET PO PRN (15:57)
--- NOTE | 2017-11-07 15:57 | NUR ---
BLOOD PRESSURE AT THIS TIME IS 173/73 HR MEDICATED WITH HYDRALAZINE ORDERED.
--- NOTE | 2017-11-07 16:45 | NUR ---
PATIENT IS CALLING OUT FOR HELP STATED THAT SHE DOES NOT FEEL GOOD THINKS THAT IT WAS FROM THE HYDRALAZINE THAT I GAVE HER BUT STATED THAT SHE HAS THE SAME REACTIONS FEW DAYS AGO WHICH RULES OUT THE HYDRALAZINE BECAUSE THIS IS THE FIRST TIME SHE TOOK THE HYDRALAZINE BLOOD PRESSURE AT THIS TIME IS 185/86.PATIENT REASSURED MADE COMFORTABLE AND WILL OBSERVE.
--- NOTE | 2017-11-07 17:06 | NUR ---
BLOOD PRESSURE RECHECKED AND ITS 178/73 MEDICATED WITH COREG ORDERED PATIENT IS CALMER NOW STATED THAT ITS NOT THE HYDRAZALINE MADE COMFORTABLE WILL OBSERVE.
--- NOTE | 2017-11-07 18:24 | NUR ---
RESTING IN BED CALM DENIES DISCOMFORTS AT THIS TIME.
--- NOTE | 2017-11-07 19:30 | NUR ---
Patient stable at start of shift, in no acute distress. A/Ox3-4 & able to communicate and make her needs known. Pertinent assessment completed. BP elevated start of shift at 159/71. Patient has Losartan 100mg due at 1999, will administer & reassess BP. Patient is asymptomatic. Denies Pain & SOB. Noted with Right forearm 20G IV which is locked, patent, & flushing well. Patient on ATB Zosyn. Bed in low position, locked, x2 side rails up. Call light within reach. Will continue to monitor through shift.
[2017-11-07 19:54] VITALS: BP 159/71
[2017-11-07] MEDS: LOSARTAN POTASSIUM 50 MG TABLET PO SCH (19:57)
[2017-11-07] MEDS: ATORVASTATIN 40 MG TABLET PO SCH (20:11)
[2017-11-08] MEDS: hydrALAZINE HCL 25 MG TABLET PO PRN (04:19)
--- NOTE | 2017-11-08 04:20 | NUR ---
BP elevated at 182/77 HR of 79. Patient is asymptomatic. Stating she has 3/10 Lower abdominal pain that "could be gas". Administered Hydralazine 25mg PRN per MD order. Will reassess BP & continue to monitor.
[2017-11-08 04:26] VITALS: BP 182/77
[2017-11-08 05:08] VITALS: BP 126/69
--- NOTE | 2017-11-08 05:12 | NUR ---
BP reassessed at 126/69 with HR of 79. Patient stable no acute distress. Will continue to monitor.
[2017-11-08] MEDS: PIPERACILLIN/TAZOBACTAM/D5W 2.25 G in PREMIXED 1 EACH IV SCH (05:14)
[2017-11-08] MEDS: PANTOPRAZOLE SODIUM 40 MG TABLET.DR PO SCH (06:08)
[2017-11-08] MEDS: LEVOTHYROXINE SODIUM 25 MCG TABLET PO SCH (06:08)
--- NOTE | 2017-11-08 06:41 | NUR ---
Patient remained stable through the night. Slept intermittently. All needs attended to promptly. Medications administered per MD order. Compliant with care. No diarrhea noted during the shift. Safety measures implemented. Call light in reach. Will endorse to day shift nurse.
--- NOTE | 2017-11-08 07:51 | NUR ---
RECEIVED PATIENT STATED WANTS TO USE THE RESTROOM DISCONNECTED FROM THE IV AND ASSISTED INTO THE TOILET PATIENT IS UPSET AND STATED THAT SHE HAS BEEN HAVING DIARRHEA PATIENT REMINDED THAT HER STOOL THAT I OBSERVED YESTERDAY WAS SOFT BUT FORMED AND PER THE NIGHT RN HER STOOL WAS FORMED SO I ASKED THE PATIENT TO DO NOT FLUSH THE TOILET TO ALLOW ME TO LET SEE HER STOOL AGAIN WHEN SHE WAS FINISHED BUT WHEN I WENT TO CHECK SHE ALREADY FLUSHED THE TOILET.STATED FORGOT TO CALL.WILL CONTINUE TO OBSERVE PATIENT AND PROVIDE SAFETY AND COMFORT AT ALL TIMES.
[2017-11-08] MEDS: LACTOBACILLUS RHAMNOSUS GG 1 EACH CAPSULE PO SCH (08:57)
[2017-11-08] MEDS: CARVEDILOL 3.125 MG TABLET PO SCH ×2 (08:58→17:41)
[2017-11-08] MEDS ORDERED: LOPERAMIDE HCL 2 MG CAPSULE PO PRN (10:15)
[2017-11-08 11:43] VITALS: BP 154/62
[2017-11-08] MEDS: ISOSORBIDE MONONITRATE 60 MG TAB.SR.24H PO SCH (12:02)
--- NOTE | 2017-11-08 14:30 | NUR ---
DR LUEVANO GI HERE TO SEE PATIENT AND STATED WILL CALL DR MICHAEL RE HIS FINDINGS.
--- NOTE | 2017-11-08 14:45 | NUR ---
PATIENT MEDICATED WITH IMMODIUM ORDERED AND WILL CONTINUE TO OBSERVE.
[2017-11-08 16:05] VITALS: BP 193/79
--- NOTE | 2017-11-08 16:10 | NUR ---
BLOOD PRESSURE IS ELEVATED AT THIS TIME ITS 193/ PATIENT STATED THAT HER BLOOD PRESSURE IS AT TIMES THIS HIGH AT HOME STATED ALSO BECAUSE SHE AFRAID OF WHAT THE RESULT OF THE STOOL WILL BE BECAUSE DR MICHAEL INFORMED HER THAT HER DISCHARGE IS BASED ON THESE RESULTS SO STATED WILL WAIT FOR HER COREG THAT IS DUE SOON.
--- NOTE | 2017-11-08 17:30 | NUR ---
COREG GIVEN ORDERED HER BLOOD PRESSURE AT THIS TIME IS 171/77 WILL CONTINUE TO OBSERVE.
--- NOTE | 2017-11-08 19:20 | NUR ---
Received patient lying in bed. AAOx4. In no acute distress. Denies any SOB or pain at this time. IV site on right forearm intact and patent. Needs assessed and attended to. Safety measure initiated and call song within reach.
[2017-11-08 19:52] VITALS: BP 167/68
[2017-11-08] MEDS: ATORVASTATIN 40 MG TABLET PO SCH (20:14)
[2017-11-08] MEDS: LOSARTAN POTASSIUM 50 MG TABLET PO SCH (20:14)
[2017-11-08] MEDS: AMOXICILLIN-CLAVUL 875-125MG TABLET PO SCH (20:27)
[2017-11-08 21:30] VITALS: BP 152/70
--- NOTE | 2017-11-08 21:30 | NUR ---
BP was 167/68 at around 1999. Cozaar routine order given. Recheck BP and is now 152/70.
[2017-11-09 04:00] VITALS: BP 162/66
[2017-11-09] MEDS: hydrALAZINE HCL 25 MG TABLET PO PRN (05:28)
[2017-11-09] MEDS: LEVOTHYROXINE SODIUM 25 MCG TABLET PO SCH (06:05)
[2017-11-09] MEDS: PANTOPRAZOLE SODIUM 40 MG TABLET.DR PO SCH (06:05)
--- NOTE | 2017-11-09 06:11 | NUR ---
AAOx4. In no acute distress. Slept well last night. Denies any SOB or pain. IV site on right forearm intact and patent. Needs assessed and attended to. Safety measure maintained and call song within reach.
--- NOTE | 2017-11-09 06:30 | NUR ---
BP was 162/66 at around 0530, given Hydralazine PRN per order. Recheck BP now is 148/52, HR 73. Patient complained of nausea. Was about to give Zofran IV but noted IV site infiltrated. Patient refused to have another IV site in place. Stating she's hoping to go home today and not wanting to be stick again. Stated that her nausea will go away on it's own.
[2017-11-09 06:36] LABS: ALANINE AMINOTRANSFERASE 23 U/L (14-59); ALKALINE PHOSPHATASE 50 U/L (50-136); ASPARTATE AMINOTRANSFERASE 15 U/L (15-37); BILIRUBIN,TOTAL 0.5 mg/dL (0.2-1.0); CARBON DIOXIDE 25 mmol/L (21-32); CHLORIDE 106 mmol/L (98-107); CREATININE 0.8 mg/dL (0.6-1.3); GLUCOSE 91 mg/dL (74-106); MAGNESIUM 1.8 mg/dL (1.8-2.4); POTASSIUM 3.2 mmol/L (3.5-5.1); TOTAL PROTEIN, SERUM 5.5 g/dL (6.4-8.2); UREA NITROGEN, BLOOD 4 mg/dL (7-18)
[2017-11-09 07:00] LABS: EOSINOPHILS # (AUTO) 0.1 K/uL (0.0-0.7); EOSINOPHILS % (AUTO) 1.4 % (0.0-7.0); HEMOGLOBIN 9.9 g/dL (10.9-14.3); MONOCYTES # (AUTO) 0.8 K/uL (2.0-10.0); NEUTROPHILS # (AUTO) 3.9 K/uL (1.8-8.9)
[2017-11-09 07:21] LABS: BASOPHILS % (AUTO) 0.6 % (0.0-2.0); HEMATOCRIT 29.5 % (31.2-41.9); LYMPHOCYTES # (AUTO) 1.7 K/uL (20.0-40.0); LYMPHOCYTES % (AUTO) 25.8 % (20.5-51.5); MEAN CORPUSCULAR HEMOGLOBIN 31.2 uug (24.7-32.8); MEAN CORPUSCULAR HGB CONC 34 g/dL (32.3-35.6); MEAN CORPUSCULAR VOLUME 92.5 fL (75.5-95.3); NEUTROPHILS % (AUTO) 60.2 % (38.5-71.5); PLATELET COUNT (AUTO) 82 K/uL (179-408); RED BLOOD CELL COUNT(AUTO) 3.19 MIL/uL (3.63-4.92); WHITE BLOOD COUNT (AUTO) 6.5 K/uL (3.8-11.8)
[2017-11-09 08:09] LABS: BASOPHILS % (MANUAL) 1 % (0-2); EOSINOPHILS % (MANUAL) 1 % (0-8); LYMPHOCYTES % (MANUAL) 30 % (20-40); MONOCYTES % (MANUAL) 7 % (2-10); NEUTROPHILS % (MANUAL) 61 % (42-75)
[2017-11-09] MEDS: LACTOBACILLUS RHAMNOSUS GG 1 EACH CAPSULE PO SCH (08:12)
[2017-11-09] MEDS: CARVEDILOL 3.125 MG TABLET PO SCH (08:12)
[2017-11-09] MEDS: AMOXICILLIN-CLAVUL 875-125MG TABLET PO SCH (08:13)
[2017-11-09] MEDS ORDERED: POTASSIUM CHLORIDE 20 MEQ TAB.PRT.SR PO ONE (08:45)
[2017-11-09] MEDS ORDERED: ATOR40TA PO (08:49)
[2017-11-09] MEDS ORDERED: LOSA50TA3 PO (08:49)
[2017-11-09] MEDS ORDERED: HYDR25TA86 PO (08:49)
[2017-11-09] MEDS ORDERED: LACT1CAP57 PO (08:49)
[2017-11-09] MEDS ORDERED: PANT40TA2 PO (08:49)
[2017-11-09] MEDS ORDERED: ZOLP5TAB8 PO (08:49)
[2017-11-09] MEDS ORDERED: Isosorbide Mononitrate PO (08:49)
[2017-11-09] MEDS ORDERED: LOPE2CAP40 PO (08:49)
[2017-11-09] MEDS ORDERED: MENT71OI TOP (08:49)
[2017-11-09] MEDS ORDERED: Amoxicillin-Clavul 875MG Tab PO (08:49)
[2017-11-09 11:25] VITALS: BP 167/67
[2017-11-09 11:30] VITALS: BP 167/67
[2017-11-09] MEDS: ISOSORBIDE MONONITRATE 60 MG TAB.SR.24H PO SCH (11:30)
--- NOTE | 2017-11-09 11:35 | NUR ---
d/c orders received noted and carried out,d/c instruction and education given to the pt,d/c rochelle per md orders.rn report given over fdc to enrique rollins pt left the facility via private car with her daughter
== END 2017-11-09 11:40 | DRG 372 ==
LOC: ER 03:54 → MED 08:37
PROVIDERS: ADMIT Internal Medicine; ATTEND Internal Medicine
DX: A04.9 Bacterial intestinal infection, unspecified (principal); K57.32 Diverticulitis of large intestine without perforation or abscess without bleeding; I48.0 Paroxysmal atrial fibrillation; I73.9 Peripheral vascular disease, unspecified; Z79.01 Long term (current) use of anticoagulants; Z79.82 Long term (current) use of aspirin; E78.5 Hyperlipidemia, unspecified; E03.9 Hypothyroidism, unspecified; I11.0 Hypertensive heart disease with heart failure; D63.8 Anemia in other chronic diseases classified elsewhere; I50.9 Heart failure, unspecified; I45.81 Long QT syndrome; Z90.49 Acquired absence of other specified parts of digestive tract; Z95.820 Peripheral vascular angioplasty status with implants and grafts; I87.2 Venous insufficiency (chronic) (peripheral); D69.59 Other secondary thrombocytopenia; T46.2X5A Adverse effect of other antidysrhythmic drugs, initial encounter; Y92.89 Other specified places as the place of occurrence of the external cause
CPT/HCPCS: 36415; 70030-TC; 71045; 83550; 83605; 83690; 83735; 84100; 85025; 85730; 87040; 87086; 93005; A4663; C9113; J1885; J2270; J2405; J2543; J2765; J3490; J7040; J7050; Q9967

== ENCOUNTER 2017-11-14 12:39 | Inpatient (IN) | payer MEDICARE, MEDICAID ==
[~2017-11-14] VITALS: Ht 167.6 cm; Wt 74.4 kg
[~2017-11-14 12:39] MED LIST changes: -AMIO200T6 PO; +ATOR40TA PO; +Amoxicillin-Clavul 875MG Tab PO; -CARV3.122 PO; +CARV6.25 PO; +HYDR25TA86 PO; +Isosorbide Mononitrate PO; +LACT1CAP57 PO; +LOPE2CAP40 PO; +LOSA100T15 PO; -LOSA50TA21 PO; +LOSA50TA3 PO; +MENT71OI TOP; +PANT40TA2 PO; -ROSU40TA PO; +ZOLP5TAB8 PO
[2017-11-14 13:06] LABS: BASOPHILS % (AUTO) 0.6 % (0.0-2.0); EOSINOPHILS # (AUTO) 0.1 K/uL (0.0-0.7); EOSINOPHILS % (AUTO) 0.8 % (0.0-7.0); HEMATOCRIT 24.6 % (31.2-41.9); HEMOGLOBIN 8.1 g/dL (10.9-14.3); LYMPHOCYTES # (AUTO) 1.7 K/uL (20.0-40.0); LYMPHOCYTES % (AUTO) 25.7 % (20.5-51.5); MEAN CORPUSCULAR HEMOGLOBIN 30.4 uug (24.7-32.8); MEAN CORPUSCULAR HGB CONC 33 g/dL (32.3-35.6); MEAN CORPUSCULAR VOLUME 92.1 fL (75.5-95.3); MONOCYTES # (AUTO) 0.7 K/uL (2.0-10.0); MONOCYTES % (AUTO) 10.1 % (0.0-11.0); NEUTROPHILS # (AUTO) 4.2 K/uL (1.8-8.9); NEUTROPHILS % (AUTO) 62.8 % (38.5-71.5); PLATELET COUNT (AUTO) 85 K/uL (179-408); RED BLOOD CELL COUNT(AUTO) 2.68 MIL/uL (3.63-4.92); WHITE BLOOD COUNT (AUTO) 6.8 K/uL (3.8-11.8)
--- NOTE | 2017-11-14 13:07 | NUR ---
PT IS IN ROOM #1B. DR RIVAS EVALUATED THE PT.
[2017-11-14 13:13] LABS: CARBON DIOXIDE 28 mmol/L (21-32); CHLORIDE 109 mmol/L (98-107); CREATININE 0.8 mg/dL (0.6-1.3); GLUCOSE 87 mg/dL (74-106); POTASSIUM 3.5 mmol/L (3.5-5.1); UREA NITROGEN, BLOOD 19 mg/dL (7-18)
[2017-11-14] MEDS ORDERED: PROT946L PO (13:16)
[2017-11-14] MEDS ORDERED: METR500T PO (13:16)
[2017-11-14 13:18] LABS: ALANINE AMINOTRANSFERASE 17 U/L (14-59); ALKALINE PHOSPHATASE 42 U/L (50-136); ASPARTATE AMINOTRANSFERASE 15 U/L (15-37); BILIRUBIN,DIRECT 0.1 mg/dL (0.0-0.2); BILIRUBIN,TOTAL 0.3 mg/dL (0.2-1.0); LIPASE 65 U/L (73-393); TOTAL PROTEIN, SERUM 5.2 g/dL (6.4-8.2)
[2017-11-14 13:32] LABS: BAND % (MANUAL) 1 % (0-10); EOSINOPHILS % (MANUAL) 1 % (0-8); LYMPHOCYTES % (MANUAL) 27 % (20-40); MONOCYTES % (MANUAL) 9 % (2-10); NEUTROPHILS % (MANUAL) 62 % (42-75)
--- NOTE | 2017-11-14 13:57 | NUR ---
Call placed to [facility] Nephrology, Dr. MCCABE has been paged.
--- NOTE | 2017-11-14 15:00 | NUR ---
RECEIVED AN 82 Y/O FEMALE PT FROM ER A CASE OF TO RULE OUT GI BLEEDING, ALERT ORIENTEDX3, BREATHING VIA ROOM AIR, PT PUT A CASSIE PATIENT, CONNECTED TO TELE BOX SHOWING SR, PT HAS A RT AC IV LINE G20. URINATING FREELY. PT WALKS USING A WALKER. BELONGINGS SHEET FILLED AND PUT IN FILE.
--- NOTE | 2017-11-14 15:07 | NUR ---
REPORT WAS GIVEN TO CASSIE RN. PT WAS TRANSFERED TO ROOM #219.
[2017-11-14] MEDS ORDERED: GOLYTELY 4000 ML BOTTLE PO ONE (15:30)
--- NOTE | 2017-11-14 15:45 | NUR ---
DR MCCABE CONTACTED AND ORDERS PUT IN, GI CONSULT ORDERED , PT SEEN BY DR CHAN ORDERED FOR PT TO KEEP NPO FOR EGD TOMORROW AND COLONOSCOPY.
--- NOTE | 2017-11-14 16:11 | NUR ---
Message left with [facility] Nephrology at [facility]'s request. "CT SCAN = NEG"
[2017-11-14] MEDS: HYDROCORTISONE 2.5 % RECTAL CREAM 28.35 GM TUBE RC SCH (16:17)
[2017-11-14] MEDS: IV NS 1000 ML 1,000 ML IV PRN (16:17)
[2017-11-14] MEDS: PROTEIN SUPPLEMENT (PROSTAT) 30 ML LIQUID PO SCH (16:20)
[2017-11-14 16:44] VITALS: BP 115/67
[2017-11-14] MEDS: ONDANSETRON 4 MG/2 ML VIAL IV PRN (17:38)
--- NOTE | 2017-11-14 19:30 | NUR ---
nsg: pt received a/o x 4, no acute distress noted. trying to finish drinking golitely. on the bedside commode, having bm. tele, SR. denies n/v, sob. cont to monitor.
[2017-11-14 20:29] VITALS: BP 157/62
[2017-11-14 21:16] LABS: HEMATOCRIT 25.2 % (31.2-41.9); HEMOGLOBIN 8.2 g/dL (10.9-14.3)
--- NOTE | 2017-11-14 22:30 | NUR ---
nsg: no change in condition. still having liquid, yellowish bm. cont to monitor.
[2017-11-14] MEDS: PANTOPRAZOLE SODIUM 40 MG VIAL IV SCH (22:42)
[2017-11-14] MEDS: METRONIDAZOLE 500 MG TABLET PO SCH (22:42)
[2017-11-15] VITALS (10 sets, daily range): BP systolic 131–165; BP diastolic 50–64
--- NOTE | 2017-11-15 05:00 | NUR ---
nsg: patient's stool is liquid, yellow, light clear. no sediments.
[2017-11-15 06:08] LABS: BASOPHILS % (AUTO) 0.7 % (0.0-2.0); EOSINOPHILS % (AUTO) 0.9 % (0.0-7.0); HEMATOCRIT 23.8 % (31.2-41.9); HEMOGLOBIN 7.8 g/dL (10.9-14.3); LYMPHOCYTES # (AUTO) 1.8 K/uL (20.0-40.0); LYMPHOCYTES % (AUTO) 33.9 % (20.5-51.5); MEAN CORPUSCULAR HEMOGLOBIN 30.4 uug (24.7-32.8); MEAN CORPUSCULAR HGB CONC 33 g/dL (32.3-35.6); MEAN CORPUSCULAR VOLUME 92.5 fL (75.5-95.3); MONOCYTES # (AUTO) 0.5 K/uL (2.0-10.0); MONOCYTES % (AUTO) 9.5 % (0.0-11.0); NEUTROPHILS # (AUTO) 2.9 K/uL (1.8-8.9); PLATELET COUNT (AUTO) 79 K/uL (179-408); RED BLOOD CELL COUNT(AUTO) 2.57 MIL/uL (3.63-4.92); WHITE BLOOD COUNT (AUTO) 5.3 K/uL (3.8-11.8)
[2017-11-15 06:23] LABS: CARBON DIOXIDE 26 mmol/L (21-32); CHLORIDE 114 mmol/L (98-107); CREATININE 0.8 mg/dL (0.6-1.3); GLUCOSE 82 mg/dL (74-106); POTASSIUM 3.4 mmol/L (3.5-5.1); UREA NITROGEN, BLOOD 14 mg/dL (7-18)
[2017-11-15 06:27] LABS: IRON, SERUM 15 ug/dL (50-175)
[2017-11-15] MEDS: METRONIDAZOLE 500 MG TABLET PO SCH ×3 (06:59→21:57)
[2017-11-15] MEDS: PROTEIN SUPPLEMENT (PROSTAT) 30 ML LIQUID PO SCH ×3 (08:00→17:00)
[2017-11-15] MEDS: MULTIVITAMINS,THERAPEUTIC TABLET PO SCH (08:48)
[2017-11-15] MEDS: PANTOPRAZOLE SODIUM 40 MG VIAL IV SCH ×2 (08:51→20:44)
[2017-11-15] MEDS: HYDROCORTISONE 2.5 % RECTAL CREAM 28.35 GM TUBE RC SCH ×2 (08:56→16:32)
[2017-11-15 10:15] LABS: EOSINOPHILS % (MANUAL) 1 % (0-8); LYMPHOCYTES % (MANUAL) 35 % (20-40); MONOCYTES % (MANUAL) 11 % (2-10); NEUTROPHILS % (MANUAL) 53 % (42-75)
[2017-11-15] MEDS ORDERED: hydrALAZINE HCL 25 MG TABLET PO PRN (14:15)
[2017-11-15] MEDS ORDERED: THERAHONEY GEL 1.5 OZ TUBE TOP PRN (14:15)
[2017-11-15] MEDS ORDERED: ZOLPIDEM 5 MG TABLET PO PRN (14:15)
[2017-11-15] MEDS ORDERED: POTASSIUM CHLORIDE 20 MEQ TAB.PRT.SR PO ONE (15:45)
[2017-11-15] MEDS: IV NS 1000 ML 1,000 ML IV PRN (16:22)
[2017-11-15] MEDS: CARVEDILOL 6.25 MG TABLET PO SCH (17:26)
[2017-11-15] MEDS ORDERED: RIVAROXABAN 10 MG TABLET PO SCH (18:00)
--- NOTE | 2017-11-15 20:21 | NUR ---
Pt noted to be coughing a non productive cough. Complaining of SOB. O2 sat noted to be 94%. Contact education instructor md. Dr. Luna. New orders for Abg and Chest x-ray
[2017-11-15] MEDS: LOSARTAN POTASSIUM 50 MG TABLET PO SCH (20:30)
--- NOTE | 2017-11-15 20:37 | NUR ---
Abg drawn by right arm
[2017-11-15] MEDS: ATORVASTATIN 40 MG TABLET PO SCH (20:44)
[2017-11-15 20:48] LABS: ABG BASE EXCESS 0.3 mmol/L; ABG HCO3 22.8 mmol/L; ABG PCO2 28.6 mmHg (35.0-45.0); ABG PH 7.519 (7.350-7.450); ABG PO2 98.6 mmHg (75.0-100.0); ABG SITE RIGHT RADIAL; ABG TOTAL HEMOGLOBIN 8.5 G/dL (12.0-16.0); MetHb 0.3 % (0.0-1.5); O2Hb 96.6 % (94.0-97.0)
--- NOTE | 2017-11-15 20:48 | NUR ---
Chest X ray done.
--- NOTE | 2017-11-15 21:00 | NUR ---
Pt offered medication to assist with sleep. Pt refused stating "I don't like medications. Pt noted to be agitated. Tele monitor showing Sinus Rhythm at 68bpm. Bed in low and locked position. Call light in reach. Continue to monitor.
[2017-11-15 21:32] LABS: HEMATOCRIT 24.6 % (31.2-41.9); HEMOGLOBIN 8.2 g/dL (10.9-14.3)
[2017-11-15] MEDS ORDERED: VANCOMYCIN IV 1 G in PREMIXED 0 EACH IV SCH (22:45)
[2017-11-15] MEDS ORDERED: VANCOMYCIN IV 200 ML IV ONE (23:30)
[2017-11-15] MEDS ORDERED: FUROSEMIDE 40 MG/4 ML VIAL IV ONE (23:30)
[2017-11-15] MEDS ORDERED: LEVOFLOXACIN 750MG/D5W 150 ML IV ONE (23:35)
[2017-11-15] MEDS: LEVOFLOXACIN 750MG/D5W 750 MG in PREMIXED 1 EACH IV SCH (23:40)
[2017-11-15] MEDS ORDERED: VANCOMYCIN IV 1 G in PREMIXED 0 EACH IV ONE (23:45)
[2017-11-16] VITALS: BP 133/67
--- NOTE | 2017-11-16 | NUR ---
Chest X-ray results and ABG results relayed to New orders received. Addendum: 11/16/17 at 0229 by MADIHA PLASCENCIA RN Amended: Links added.
[2017-11-16] MEDS ORDERED: VANCOMYCIN IV 200 ML ONE (00:06)
--- NOTE | 2017-11-16 00:10 | NUR ---
Pt verbalized that she doesn't feel well but is unable to elaborate as to why. Pt continues to be agitated. VS currently within normal limits.
--- NOTE | 2017-11-16 01:00 | NUR ---
Llanos catheter inserted. 16f 5/10cc. No bladder distension noted. Pt urine output good. Addendum: 11/16/17 at 0229 by MADIHA PLASCENCIA RN Amended: Links added.
--- NOTE | 2017-11-16 02:28 | NUR ---
Patient education provided regarding medications. Pt reminded to turn and reposition in bed and request for assistance if necessary. Bed in low and locked position at all times. Call light in reach. Will continue to monitor. Addendum: 11/16/17 at 0229 by MADIHA PLASCENCIA RN Amended: Links added.
--- NOTE | 2017-11-16 03:17 | NUR ---
Pt noted to have removed O2 at 2lpm via NC. Pt asking why she feels so tired. Suggested pt utilize supplemental O2. Pt verbalized understanding.
[2017-11-16 04:00] VITALS: BP 174/61
--- NOTE | 2017-11-16 05:00 | NUR ---
Patient fidgety, mildly restless, with outbursts, verbalizing she's not feeling well. Skin warm and dry. No EKG changes as per athletic monitor. Stat EKG and Troponin ordered. Call placed to Dr. Luna re: patient's condition.
--- NOTE | 2017-11-16 05:27 | NUR ---
Pt noted to have critical trop of 0.988. Pt continues to be in distress. Dr Luna notified.
[2017-11-16 05:28] LABS: BASOPHILS % (AUTO) 0.8 % (0.0-2.0); EOSINOPHILS # (AUTO) 0.1 K/uL (0.0-0.7); EOSINOPHILS % (AUTO) 1.3 % (0.0-7.0); HEMATOCRIT 26.6 % (31.2-41.9); HEMOGLOBIN 8.9 g/dL (10.9-14.3); LYMPHOCYTES # (AUTO) 1.6 K/uL (20.0-40.0); LYMPHOCYTES % (AUTO) 27.9 % (20.5-51.5); MEAN CORPUSCULAR HEMOGLOBIN 30.5 uug (24.7-32.8); MEAN CORPUSCULAR HGB CONC 33 g/dL (32.3-35.6); MEAN CORPUSCULAR VOLUME 91.3 fL (75.5-95.3); MONOCYTES # (AUTO) 0.6 K/uL (2.0-10.0); MONOCYTES % (AUTO) 10.5 % (0.0-11.0); NEUTROPHILS # (AUTO) 3.5 K/uL (1.8-8.9); NEUTROPHILS % (AUTO) 59.5 % (38.5-71.5); PLATELET COUNT (AUTO) 89 K/uL (179-408); RED BLOOD CELL COUNT(AUTO) 2.91 MIL/uL (3.63-4.92); WHITE BLOOD COUNT (AUTO) 5.9 K/uL (3.8-11.8)
[2017-11-16 05:29] LABS: CARBON DIOXIDE 28 mmol/L (21-32); CHLORIDE 104 mmol/L (98-107); CREATININE 0.9 mg/dL (0.6-1.3); GLUCOSE 123 mg/dL (74-106); UREA NITROGEN, BLOOD 8 mg/dL (7-18)
--- NOTE | 2017-11-16 05:29 | NUR ---
Pt noted with episode of severe anxiety. Pt stated "I'm not sure whats wrong but i don' t feel well right now". When asked to elaborate. Pt unable to elaborate. Stat 12 lead EKG done. Labs drawn as well. Pt asked if she was feeling pain or shortness of breathe. Pt stated "I just feel like i'm dying" BP reduced to 155/76 and hr 76 after administration of Hydralazine.
[2017-11-16] MEDS: METRONIDAZOLE 500 MG TABLET PO SCH ×3 (05:35→22:12)
[2017-11-16] MEDS: ONDANSETRON 4 MG/2 ML VIAL IV PRN (05:35)
[2017-11-16 05:37] LABS: *BILIRUBIN,URIN NEGATIVE (NEGATIVE); *BLOOD, URINE Trace-intact (NEGATIVE); *CLARITY,URINE CLEAR (CLEAR); *KETONES,URINE NEGATIVE (NEGATIVE); *PROTEIN,URINE NEGATIVE (NEGATIVE); *UROBILINOGEN,URINE 0.2 E.U./dl (NORMAL); LEUKOCYTE ESTERASE ,URINE NEGATIVE (NEGATIVE); NITRITE, URINE NEGATIVE (NEGATIVE); UGLUCOSE NEGATIVE (NEGATIVE)
[2017-11-16 05:47] LABS: *COLOR,URINE STRAW (YELLOW)
[2017-11-16 05:49] LABS: BACTERIA,URINE NONE SEEN /HPF (NONE SEEN); RBC,URINE 0-3 /HPF (0-3); SQUAMOUS EPITHELIAL CELL,UR FEW /HPF (NONE SEEN); WBC,URINE NONE SEEN /HPF (0-3)
--- NOTE | 2017-11-16 06:05 | NUR ---
Received call back from Dr. Luna. New orders provided.
[2017-11-16] MEDS ORDERED: POTASSIUM CHLORIDE 100 ML IV SCH ×2 (06:15→08:15)
[2017-11-16] MEDS ORDERED: ASPIRIN 325 MG TABLET PO SCH (06:15)
[2017-11-16] MEDS: LEVOTHYROXINE SODIUM 25 MCG TABLET PO SCH (06:28)
[2017-11-16] MEDS ORDERED: POTASSIUM CHLORIDE 50 ML ONE (06:30)
[2017-11-16] MEDS: NITROGLYCERIN OINT 1 GM PACKET TP SCH ×3 (06:54→20:22)
[2017-11-16] MEDS ORDERED: PANTOPRAZOLE SODIUM 40 MG TABLET.DR PO SCH (07:00)
--- NOTE | 2017-11-16 07:30 | NUR ---
report received from Chau VAZQUEZ, 82 yr old female, readmitted 11/14/17 for GI Bleed. CASSIE status, ekg is sinus rhythm. patient came from [facility].IV fluid infusing via right AC #20 tko and a bag of 10meq kcl infusing as well. patient has a brandt catheter.patient anxious. troponin 0.988 2nd draw. Addendum: 11/16/17 at 1131 by TYRA MCCABE RN Amended: Links added.
--- NOTE | 2017-11-16 07:30 | NUR ---
All notes and documentation by Chau Hamlin RN (on orientation) are under my supervision.
--- NOTE | 2017-11-16 07:35 | NUR ---
1st bag of Kcl 10 meq hung by Chau VAZQUEZ @ 0653. Total dose of Kcl ordered by Dr. Luna is 40 meq. Serum K this am =3.0. Malena VAZQUEZ informed.
[2017-11-16 07:45] LABS: ABG BASE EXCESS 2.3 mmol/L; ABG HCO3 23.4 mmol/L; ABG PCO2 24.5 mmHg (35.0-45.0); ABG PH 7.597 (7.350-7.450); ABG PO2 69.4 mmHg (75.0-100.0); ABG SITE RIGHT RADIAL; ABG TOTAL HEMOGLOBIN 9.2 G/dL (12.0-16.0); COHb 1.2 % (0.5-1.5); MetHb 0.3 % (0.0-1.5); O2Hb 94.6 % (94.0-97.0); VENT MODE Nasal Cannula
[2017-11-16] MEDS: POTASSIUM CHLORIDE 50 ML IV SCH ×4 (08:00→15:51)
[2017-11-16] MEDS: CARVEDILOL 6.25 MG TABLET PO SCH ×2 (08:28→16:00)
[2017-11-16] MEDS: LACTOBACILLUS RHAMNOSUS GG 1 EACH CAPSULE PO SCH (08:29)
[2017-11-16] MEDS: PANTOPRAZOLE SODIUM 40 MG VIAL IV SCH ×2 (08:29→20:21)
[2017-11-16] MEDS: PROTEIN SUPPLEMENT (PROSTAT) 30 ML LIQUID PO SCH ×3 (08:29→15:58)
[2017-11-16] MEDS: ISOSORBIDE MONONITRATE 60 MG TAB.SR.24H PO SCH (08:29)
[2017-11-16] MEDS: MULTIVITAMINS,THERAPEUTIC TABLET PO SCH (08:30)
--- NOTE | 2017-11-16 08:45 | NUR ---
all po meds given except patient refused Coreg. also family was conerned about hemorrhoids that should had been fixed yesterday Addendum: 11/16/17 at 0846 by TYRA MCCABE RN Amended: Links added.
[2017-11-16] MEDS ORDERED: ASPIRIN 81 MG TAB.CHEW PO SCH (09:00)
[2017-11-16] MEDS: HYDROCORTISONE 2.5 % RECTAL CREAM 28.35 GM TUBE RC SCH ×2 (10:22→16:00)
[2017-11-16 11:06] VITALS: BP 128/42
--- NOTE | 2017-11-16 12:45 | NUR ---
refused prostat Addendum: 11/16/17 at 1245 by TYRA MCCABE RN Amended: Links added.
--- NOTE | 2017-11-16 13:00 | NUR ---
seen by dr stauffer. orders received. Addendum: 11/16/17 at 1411 by TYRA MCCABE RN Amended: Links added.
--- NOTE | 2017-11-16 13:59 | NUR ---
scd bilateral legs applied Addendum: 11/16/17 at 1400 by TYRA MCCABE RN Amended: Links added.
--- NOTE | 2017-11-16 14:08 | NUR ---
seen by dr tony. Addendum: 11/16/17 at 1409 by TYRA MCCABE RN Amended: Noé hein. Addendum: 11/16/17 at 1411 by TYRA MCCABE RN Amended: Noé hein.
[2017-11-16] MEDS ORDERED: MAGNESIUM SULFATE/D5W 100 ML IV SCH (14:30)
[2017-11-16] MEDS: MAGNESIUM SULFATE/D5W 100 ML IV SCH ×2 (14:45→15:51)
--- NOTE | 2017-11-16 14:52 | NUR ---
Clinical pharmacy note-Vancomycin dosing per pharmacy Subjective: To start Vancomycin dosing on this patient for suspected infection(no MD note yet) Objective: BUN 8 Scr 0.9 WBC 5.9 Temp 98.3 Ht 167.64cm Wt 72.58kg Assessment/Plan: Patient had 1gram of Vancomycin today at 0121. Will continue Vancomycin 1gram every 22hrs(second dose tonight at 2300) and draw trough by 4th dose(not ordered yet) for expected trough around 15.51. Will monitor daily.
[2017-11-16] MEDS: CLOPIDOGREL 75 MG TABLET PO SCH (14:56)
[2017-11-16 15:02] VITALS: BP 143/59
[2017-11-16 19:00] VITALS: BP 141/52
--- NOTE | 2017-11-16 19:23 | NUR ---
report given to Saray RN Addendum: 11/16/17 at 1923 by TYRA MCCABE RN Amended: Links added.
[2017-11-16] MEDS: ATORVASTATIN 40 MG TABLET PO SCH (20:21)
[2017-11-16] MEDS: LOSARTAN POTASSIUM 50 MG TABLET PO SCH (20:21)
--- NOTE | 2017-11-16 20:45 | NUR ---
Nursing note: Received report for outgoing RN. Noted pt with slightly up trending Troponin. Notified jewelry cutter Belkis. New order to repeat Troponin in am.
[2017-11-16 21:11] LABS: HEMATOCRIT 24.6 % (31.2-41.9); HEMOGLOBIN 8.2 g/dL (10.9-14.3)
[2017-11-16] MEDS ORDERED: LEVOFLOXACIN 750MG/D5W 150 ML IV ONE (22:12)
[2017-11-16] MEDS: LEVOFLOXACIN 750MG/D5W 750 MG in PREMIXED 1 EACH IV SCH (22:13)
--- NOTE | 2017-11-16 22:26 | NUR ---
Nursing Note: IV piggyback levofloxacin taken from stock medications in error.
[2017-11-16] MEDS ORDERED: VANCOMYCIN IV 1 G in PREMIXED 0 EACH IV SCH (23:00)
--- NOTE | 2017-11-16 23:23 | NUR ---
Nursing Note: Instructed patient on dietary modifications relevant to diagnosis. Patient teaching provided regarding signs and symptoms to report. Addendum: 11/16/17 at 2326 by MADIHA PLASCENCIA RN Amended: Links added.
[2017-11-17] VITALS (7 sets, daily range): BP systolic 111–144; BP diastolic 41–64
--- NOTE | 2017-11-17 | NUR ---
VS BP 141/52 HR 64 T 97.9 R 19 O2 sat 97%. Lungs clear in all west. Pt no longer coughing. 500cc of clear yellow urine excreted. Mucous membranes moist. Pt continues to remain Sinus rhythm on tele monitor. Addendum: 11/17/17 at 0139 by MADIHA PLASCENCIA RN Amended: Links added.
[2017-11-17] MEDS ORDERED: VANCOMYCIN IV 1 G in PREMIXED 0 EACH IV SCH ×2 (01:00→22:00)
--- NOTE | 2017-11-17 01:00 | NUR ---
Pt noted to be in no respiratory distress tonight. Pt continues to remain stable on O2 at 2lpm. Addendum: 11/17/17 at 0139 by MADIHA PLASCENCIA RN Amended: Links added.
--- NOTE | 2017-11-17 01:21 | NUR ---
Pt instructed on disease process of previous evening. Pt instructed on s/s of complications related to disease process. Pt treatment plan explained and medication education provided regarding adverse effects. Addendum: 11/17/17 at 0139 by MADIHA PLASCENCIA RN Amended: Links added.
--- NOTE | 2017-11-17 01:26 | NUR ---
No redness noted over bony prominences. Pt encouraged to turn and reposition in bed. Bilateral heel offloading also done. Addendum: 11/17/17 at 0139 by MADIHA PLASCENCIA RN Amended: Links added.
[2017-11-17] MEDS: ONDANSETRON 4 MG/2 ML VIAL IV PRN (02:32)
--- NOTE | 2017-11-17 02:35 | NUR ---
Pt noted to have episode of nausea. Zofran administered as ordered.
[2017-11-17] MEDS: LEVOTHYROXINE SODIUM 25 MCG TABLET PO SCH (06:09)
[2017-11-17] MEDS: METRONIDAZOLE 500 MG TABLET PO SCH ×3 (06:09→21:05)
[2017-11-17 06:22] LABS: BASOPHILS % (AUTO) 0.5 % (0.0-2.0); EOSINOPHILS # (AUTO) 0.1 K/uL (0.0-0.7); EOSINOPHILS % (AUTO) 0.9 % (0.0-7.0); HEMATOCRIT 24.7 % (31.2-41.9); HEMOGLOBIN 8.2 g/dL (10.9-14.3); LYMPHOCYTES # (AUTO) 1.3 K/uL (20.0-40.0); LYMPHOCYTES % (AUTO) 22.4 % (20.5-51.5); MEAN CORPUSCULAR HEMOGLOBIN 30.6 uug (24.7-32.8); MEAN CORPUSCULAR HGB CONC 33 g/dL (32.3-35.6); MEAN CORPUSCULAR VOLUME 91.9 fL (75.5-95.3); MONOCYTES # (AUTO) 0.7 K/uL (2.0-10.0); MONOCYTES % (AUTO) 12.1 % (0.0-11.0); NEUTROPHILS # (AUTO) 3.7 K/uL (1.8-8.9); NEUTROPHILS % (AUTO) 64.1 % (38.5-71.5); PLATELET COUNT (AUTO) 86 K/uL (179-408); RED BLOOD CELL COUNT(AUTO) 2.68 MIL/uL (3.63-4.92); WHITE BLOOD COUNT (AUTO) 5.7 K/uL (3.8-11.8)
[2017-11-17 06:40] LABS: ALANINE AMINOTRANSFERASE 22 U/L (14-59); ALKALINE PHOSPHATASE 40 U/L (50-136); ASPARTATE AMINOTRANSFERASE 27 U/L (15-37); BILIRUBIN,TOTAL 0.3 mg/dL (0.2-1.0); CARBON DIOXIDE 28 mmol/L (21-32); CHLORIDE 107 mmol/L (98-107); CREATININE 0.8 mg/dL (0.6-1.3); GLUCOSE 98 mg/dL (74-106); MAGNESIUM 1.9 mg/dL (1.8-2.4); PHOSPHOROUS 3.8 mg/dL (2.5-4.9); POTASSIUM 3.5 mmol/L (3.5-5.1); TOTAL PROTEIN, SERUM 5.1 g/dL (6.4-8.2); UREA NITROGEN, BLOOD 6 mg/dL (7-18)
--- NOTE | 2017-11-17 07:30 | NUR ---
RECIEVED LYING IN BED AWAKE ALERT AND ORIENTEDX3. VERY PLEASANT LADY. NO C/O CP. SR NO ECTOPY.
[2017-11-17] MEDS ORDERED: NITROGLYCERIN OINT 1 GM PACKET TP SCH (09:00)
[2017-11-17 09:01] LABS: LYMPHOCYTES % (MANUAL) 23 % (20-40); MONOCYTES % (MANUAL) 12 % (2-10); NEUTROPHILS % (MANUAL) 65 % (42-75)
[2017-11-17] MEDS: LACTOBACILLUS RHAMNOSUS GG 1 EACH CAPSULE PO SCH (09:32)
[2017-11-17] MEDS: ASPIRIN 81 MG TAB.CHEW PO SCH (09:32)
[2017-11-17] MEDS: MULTIVITAMINS,THERAPEUTIC TABLET PO SCH (09:32)
[2017-11-17] MEDS: PANTOPRAZOLE SODIUM 40 MG VIAL IV SCH (09:33)
[2017-11-17] MEDS: CLOPIDOGREL 75 MG TABLET PO SCH (09:33)
[2017-11-17] MEDS: PROTEIN SUPPLEMENT (PROSTAT) 30 ML LIQUID PO SCH ×3 (09:34→17:00)
[2017-11-17] MEDS: ISOSORBIDE MONONITRATE 60 MG TAB.SR.24H PO SCH (10:03)
[2017-11-17] MEDS: CARVEDILOL 6.25 MG TABLET PO SCH ×2 (10:03→17:02)
[2017-11-17] MEDS: HYDROCORTISONE 2.5 % RECTAL CREAM 28.35 GM TUBE RC SCH ×2 (10:28→17:01)
--- NOTE | 2017-11-17 13:25 | NUR ---
Clinical pharmacy note-Vancomycin dosing per pharmacy Subjective: To start Vancomycin dosing on this 82 yo female patient for suspected infection Objective: BUN 6 Scr 0.8 WBC 5.7 Temp 98 Ht 167.64cm Wt 72.58kg Assessment/Plan: Will continue same dose of Vancomycin 1gram IVPB every 22hrs(2nd dose tonight at 2200- RN gave dose on 11/16 late - rescheduled) and draw trough by 4th dose(not ordered yet) for expected trough around 15.51. Will monitor daily.
[2017-11-17] MEDS ORDERED: FUROSEMIDE 20 MG/2 ML VIAL IV ONE (14:45)
--- NOTE | 2017-11-17 20:00 | NUR ---
Received patient laying comfortably in bed. In no acute distress noted. Denies pain or SOB. A/O x 3. On room air. TELE SR at 75. IV on the right FA kept on TKO. Llanos draining clear and yellow urine. Requested prune juice for BM. No active bleeding noted. Re enforced the use of call light for any assistance. Bed alarm on. Safety initiated. Call light within reach. Will continue to monitor.
[2017-11-17] MEDS: LOSARTAN POTASSIUM 50 MG TABLET PO SCH (21:00)
[2017-11-17] MEDS: ATORVASTATIN 40 MG TABLET PO SCH (21:05)
[2017-11-17] MEDS ORDERED: LEVOFLOXACIN 750 MG TABLET PO SCH (23:00)
[2017-11-18 02:23] VITALS: BP 145/60
--- NOTE | 2017-11-18 02:41 | NUR ---
Patient called and stated "I feel like I am dying"! "I cannot explain it". Vital signs taken, stable. TELE reading SR at 71. O2 put on 2L NC. Patient just had 2-3 soft BM's. Denies pain and SOB. Contacted Dr. Colton MATA given, Dr. Segura stated "just give her a sleeping pill and let her go to sleep. No new orders". Will closely monitor.
[2017-11-18 03:40] VITALS: BP 144/48
--- NOTE | 2017-11-18 05:37 | NUR ---
Patient slept after Ambien given. Calm and comfortable. On O2 2L NC. TELE SR with some PVC's. Llanos care provided. Vital signs stable. In no acute distress noted. Safety and comfort measures maintained t/o shift. All meds given as ordered. All needs met.
[2017-11-18] MEDS: METRONIDAZOLE 500 MG TABLET PO SCH (06:03)
[2017-11-18] MEDS: LEVOTHYROXINE SODIUM 25 MCG TABLET PO SCH (06:03)
[2017-11-18] MEDS ORDERED: PANTOPRAZOLE SODIUM 40 MG TABLET.DR PO SCH (07:00)
[2017-11-18] MEDS: MULTIVITAMINS,THERAPEUTIC TABLET PO SCH (08:57)
[2017-11-18] MEDS: HYDROCORTISONE 2.5 % RECTAL CREAM 28.35 GM TUBE RC SCH (08:57)
[2017-11-18] MEDS: CLOPIDOGREL 75 MG TABLET PO SCH (08:57)
[2017-11-18] MEDS: LACTOBACILLUS RHAMNOSUS GG 1 EACH CAPSULE PO SCH (08:57)
[2017-11-18] MEDS: ISOSORBIDE MONONITRATE 60 MG TAB.SR.24H PO SCH (08:58)
[2017-11-18] MEDS: PROTEIN SUPPLEMENT (PROSTAT) 30 ML LIQUID PO SCH ×2 (08:58→12:38)
[2017-11-18] MEDS: CARVEDILOL 6.25 MG TABLET PO SCH (08:58)
[2017-11-18] MEDS: ASPIRIN 81 MG TAB.CHEW PO SCH (08:59)
[2017-11-18] MEDS ORDERED: HYDR28.316 RC (09:08)
[2017-11-18] MEDS ORDERED: LEVO750T21 PO (09:08)
[2017-11-18] MEDS ORDERED: ASPI81TA31 PO (09:08)
[2017-11-18] MEDS ORDERED: CLOP75TA15 PO (09:08)
[2017-11-18 09:57] LABS: BASOPHILS % (AUTO) 0.7 % (0.0-2.0); EOSINOPHILS # (AUTO) 0.1 K/uL (0.0-0.7); EOSINOPHILS % (AUTO) 1.8 % (0.0-7.0); HEMATOCRIT 26.3 % (31.2-41.9); HEMOGLOBIN 8.7 g/dL (10.9-14.3); LYMPHOCYTES # (AUTO) 1.3 K/uL (20.0-40.0); LYMPHOCYTES % (AUTO) 20.8 % (20.5-51.5); MEAN CORPUSCULAR HEMOGLOBIN 30.1 uug (24.7-32.8); MEAN CORPUSCULAR HGB CONC 33 g/dL (32.3-35.6); MONOCYTES # (AUTO) 0.7 K/uL (2.0-10.0); MONOCYTES % (AUTO) 11.2 % (0.0-11.0); NEUTROPHILS # (AUTO) 4.1 K/uL (1.8-8.9); NEUTROPHILS % (AUTO) 65.5 % (38.5-71.5); PLATELET COUNT (AUTO) 90 K/uL (179-408); WHITE BLOOD COUNT (AUTO) 6.3 K/uL (3.8-11.8)
[2017-11-18 10:18] LABS: EOSINOPHILS % (MANUAL) 3 % (0-8); LYMPHOCYTES % (MANUAL) 27 % (20-40); MONOCYTES % (MANUAL) 9 % (2-10); NEUTROPHILS % (MANUAL) 61 % (42-75)
[2017-11-18 11:13] VITALS: BP 100/39
[2017-11-18 14:22] VITALS: BP 147/66
[2017-11-18] MEDS ORDERED: LIDOCAINE HCL 2% 20 ML VIAL MC ONE (15:14)
[2017-11-18] MEDS ORDERED: PROPOFOL 200 MG/20 ML BOTTLE IV ONE (15:14)
--- NOTE | 2017-11-18 15:16 | NUR ---
DISCHARGE NOTED, DISCHARGE PROTOCOL FOLLOWED, PATIENT DAUGHTER PICKED PATIENT UP AND WILL DROP OFF AT [facility], OKAY WITH [facility], REPORT GIVEN TO RUSLAN AT [facility]. PATIENT HAS DONE THIS BEFORE, CLARIFIED WITH CIVIL ENGINEERING PROFESSIONAL. IV REMOVED WITH NO IRRITATION NOTED. ALL BELONGINGS ACCOUNTED FOR AND SENT WITH PATIENT.
== END 2017-11-18 15:15 | DRG 393 ==
LOC: ER 12:39 → DOU 14:53 → TELE-TD 15:54 → TELE 11-17 12:34
PROVIDERS: ADMIT Internal Medicine Nephrology; ATTEND Internal Medicine Nephrology
PROC: 0DB78ZX Excision of Stomach, Pylorus, Via Natural or Artificial Opening Endoscopic, Diagnostic (ICD-10-PCS; principal; 2017-11-15 10:19)
PROC: 0DBP8ZX Excision of Rectum, Via Natural or Artificial Opening Endoscopic, Diagnostic (ICD-10-PCS; 2017-11-15 10:19)
DX: K64.8 Other hemorrhoids (principal); I50.33 Acute on chronic diastolic (congestive) heart failure; I21.A1 Myocardial infarction type 2; J96.90 Respiratory failure, unspecified, unspecified whether with hypoxia or hypercapnia; Z79.01 Long term (current) use of anticoagulants; K44.9 Diaphragmatic hernia without obstruction or gangrene; D69.6 Thrombocytopenia, unspecified; E03.9 Hypothyroidism, unspecified; E78.5 Hyperlipidemia, unspecified; E83.42 Hypomagnesemia; E87.6 Hypokalemia; Z88.5 Allergy status to narcotic agent; I25.10 Atherosclerotic heart disease of native coronary artery without angina pectoris; I73.9 Peripheral vascular disease, unspecified; F17.210 Nicotine dependence, cigarettes, uncomplicated; K62.89 Other specified diseases of anus and rectum; Z95.820 Peripheral vascular angioplasty status with implants and grafts; I11.0 Hypertensive heart disease with heart failure; I48.0 Paroxysmal atrial fibrillation; K21.9 Gastro-esophageal reflux disease without esophagitis; K64.4 Residual hemorrhoidal skin tags; K57.30 Diverticulosis of large intestine without perforation or abscess without bleeding; D50.0 Iron deficiency anemia secondary to blood loss (chronic); R19.7 Diarrhea, unspecified
CPT/HCPCS: 36415; 36600; 70030-TC; 71045; 83550; 83690; 83735; 84100; 85018; 85025; 85730; 86850; 86900; 86901; 87086; 88342; 93005; 93307; A4217; A4663; C9113; J1940; J1956; J2405; J3370; J3475; J3480; J3490; J7030

== ENCOUNTER 2017-12-06 15:54 | Inpatient (IN) | payer MEDICARE, MEDICAID ==
[~2017-12-06] VITALS: Ht 167.6 cm; Wt 70.8 kg
[~2017-12-06 15:54] MED LIST changes: -Amoxicillin-Clavul 875MG Tab PO; +CLOP75TA15 PO; +HYDR28.316 RC; -Isosorbide Mononitrate PO; +LEVO750T21 PO; +METR500T PO; +PROT946L PO; -RIVA10TA PO
[2017-12-06] MEDS ORDERED: IV NORMAL SALINE 1000 ML BAG IV ONE (16:15)
[2017-12-06] MEDS ORDERED: IPRATROPIUM BROMIDE 0.5 MG/2.5 ML NEBU NEB ONE ×2 (16:15→16:45)
[2017-12-06] MEDS ORDERED: ALBUTEROL SULFATE 2.5 MG/3 ML NEBU NEB ONE (16:15)
[2017-12-06] MEDS ORDERED: ALBUTEROL SULFATE 2.5 MG/3 ML NEBU ONE ×2 (16:18→16:37)
[2017-12-06] MEDS ORDERED: IPRATROPIUM BROMIDE 0.5 MG/2.5 ML NEBU ONE ×2 (16:18→16:37)
[2017-12-06] MEDS ORDERED: ALBUTEROL SULFATE 2.5 MG/ 0.5 ML NEBU ONE (16:19)
[2017-12-06] MEDS ORDERED: VANCOMYCIN IV 1,000 MG in IV DEXTROSE 5% 250 ML IV ONE (16:30)
[2017-12-06] MEDS ORDERED: PIPERACILLIN SODIUM/TAZOBACTAM 3.375 G in IV DEXTROSE 5% 50 ML IV ONE (16:30)
[2017-12-06 16:34] LABS: BASOPHILS % (AUTO) 0.3 % (0.0-2.0); HEMOGLOBIN 8.8 g/dL (10.9-14.3); LYMPHOCYTES # (AUTO) 1.3 K/uL (20.0-40.0); LYMPHOCYTES % (AUTO) 17.1 % (20.5-51.5); MEAN CORPUSCULAR HEMOGLOBIN 26.7 uug (24.7-32.8); MEAN CORPUSCULAR HGB CONC 32 g/dL (32.3-35.6); MEAN CORPUSCULAR VOLUME 82.3 fL (75.5-95.3); MONOCYTES # (AUTO) 0.7 K/uL (2.0-10.0); MONOCYTES % (AUTO) 8.9 % (0.0-11.0); NEUTROPHILS # (AUTO) 5.7 K/uL (1.8-8.9); NEUTROPHILS % (AUTO) 73.7 % (38.5-71.5); PLATELET COUNT (AUTO) 108 K/uL (179-408); RED BLOOD CELL COUNT(AUTO) 3.28 MIL/uL (3.63-4.92); WHITE BLOOD COUNT (AUTO) 7.7 K/uL (3.8-11.8)
[2017-12-06] MEDS ORDERED: PIPERACILLIN/TAZOBACTAM/D5W 50 ML IV ONE (16:42)
[2017-12-06] MEDS ORDERED: VANCOMYCIN IV 200 ML ONE (16:42)
[2017-12-06] MEDS ORDERED: methylPREDNISolone SOD SUCC 125 MG/2 ML VIAL IV ONE (16:45)
[2017-12-06] MEDS ORDERED: ALBUTEROL SULFATE 2.5 MG/ 0.5 ML NEBU NEB ONE (16:45)
[2017-12-06 16:54] LABS: CARBON DIOXIDE 29 mmol/L (21-32); CHLORIDE 102 mmol/L (98-107); CREATININE 0.6 mg/dL (0.6-1.3); GLUCOSE 111 mg/dL (74-106); POTASSIUM 3.4 mmol/L (3.5-5.1); UREA NITROGEN, BLOOD 5 mg/dL (7-18)
[2017-12-06] MEDS ORDERED: methylPREDNISolone SOD SUCC 125 MG/2 ML VIAL ONE (16:56)
[2017-12-06] MEDS ORDERED: IV NORMAL SALINE 500 ML IV ONE (16:57)
[2017-12-06 16:58] LABS: ALANINE AMINOTRANSFERASE 17 U/L (14-59); ASPARTATE AMINOTRANSFERASE 18 U/L (15-37); BILIRUBIN,DIRECT 0.1 mg/dL (0.0-0.2)
[2017-12-06] MEDS ORDERED: ONDANSETRON IV *ER 4 MG/2 ML VIAL IV ONE (17:00)
[2017-12-06] MEDS ORDERED: ONDANSETRON 4 MG/2 ML VIAL ONE (17:08)
[2017-12-06] MEDS ORDERED: HYDR-4076 PO (17:10)
[2017-12-06] MEDS ORDERED: ZOLP5TAB8 PO (17:10)
[2017-12-06] MEDS ORDERED: PROT946L PO (17:10)
[2017-12-06] MEDS ORDERED: LACT10SO PO (17:10)
[2017-12-06] MEDS ORDERED: ATOR40TA PO (17:10)
[2017-12-06] MEDS ORDERED: LOSA50TA21 PO (17:10)
[2017-12-06] MEDS ORDERED: ALBU6.7H IH (17:10)
[2017-12-06] MEDS ORDERED: FLAX10003 PO (17:10)
[2017-12-06] MEDS ORDERED: LEVO25TA9 PO (17:10)
[2017-12-06] MEDS ORDERED: PANT40TA4 PO (17:10)
[2017-12-06] MEDS ORDERED: LOPE-156 PO (17:10)
[2017-12-06] MEDS ORDERED: ALBU0.63 IH (17:10)
[2017-12-06] MEDS ORDERED: LACT1CAP57 PO (17:10)
[2017-12-06] MEDS ORDERED: AZIT250T13 PO (17:10)
[2017-12-06] MEDS ORDERED: CLOP75TA15 PO (17:10)
[2017-12-06] MEDS ORDERED: ISOS60TA4 PO (17:10)
[2017-12-06] MEDS ORDERED: IPRA0.2S48 IH (17:10)
[2017-12-06 17:15] LABS: ALKALINE PHOSPHATASE 51 U/L (50-136); BILIRUBIN,TOTAL 0.5 mg/dL (0.2-1.0)
--- NOTE | 2017-12-06 17:17 | NUR ---
SBAR report received from Carly BURRELL. Patient being admitted to [facility] under Dr Luna. admitting diagnosis PNeumonia.
[2017-12-06] MEDS ORDERED: ASPIRIN EC 81 MG TABLET.DR PO ONE (17:24)
[2017-12-06] MEDS ORDERED: NITROGLYCERIN 0.4 MG/TAB BOTTLE SL ONE ×2 (17:24→17:30)
[2017-12-06] MEDS ORDERED: FUROSEMIDE 40 MG/4 ML VIAL ONE (17:24)
[2017-12-06] MEDS ORDERED: FUROSEMIDE 20 MG/2 ML VIAL IV ONE (17:30)
[2017-12-06] MEDS ORDERED: ASPIRIN EC 81 MG TABLET.DR PO SCH (17:30)
--- NOTE | 2017-12-06 18:08 | NUR ---
Deisi-anal care done.
[2017-12-06 18:13] VITALS: BP 192/89
--- NOTE | 2017-12-06 18:14 | NUR ---
1st attempt to give updated nursing report to nurse [phone], pending callback
--- NOTE | 2017-12-06 18:36 | NUR ---
82 YEAR OLD FEMALE ADMITTED TO [facility] C/O SHORTNESS OF BREATH AND COUGHING. CALL TO DR MCCABE FOR ADMISSION ORDERS Addendum: 12/06/17 at 1836 by TYRA MCCABE RN Amended: Links added.
[2017-12-06 18:43] LABS: *BILIRUBIN,URIN NEGATIVE (NEGATIVE); *BLOOD, URINE NEGATIVE (NEGATIVE); *CLARITY,URINE CLEAR (CLEAR); *COLOR,URINE YELLOW (YELLOW); *KETONES,URINE NEGATIVE (NEGATIVE); *PROTEIN,URINE NEGATIVE (NEGATIVE); *UROBILINOGEN,URINE 0.2 E.U./dl (NORMAL); LEUKOCYTE ESTERASE ,URINE NEGATIVE (NEGATIVE); NITRITE, URINE NEGATIVE (NEGATIVE); PH,URINE 5.5 (5.0-8.0); UGLUCOSE NEGATIVE (NEGATIVE)
[2017-12-06] MEDS ORDERED: Medication Not On Formulary EA (Lactulose (Duphalac) 10 GM) PO PRN (18:45)
[2017-12-06] MEDS ORDERED: NORMAL SALINE FLUSH 10 ML DISP.SYRIN IV PRN (18:45)
[2017-12-06] MEDS ORDERED: LOPERAMIDE HCL 2 MG CAPSULE PO PRN (18:45)
--- NOTE | 2017-12-06 18:46 | NUR ---
FAMILY AT THE BEDSIDE Addendum: 12/06/17 at 1847 by TYRA MCCABE RN Amended: Links added.
[2017-12-06 18:47] LABS: BACTERIA,URINE NONE SEEN /HPF (NONE SEEN); RBC,URINE 0-3 /HPF (0-3); SQUAMOUS EPITHELIAL CELL,UR FEW /HPF (NONE SEEN); WBC,URINE 0-3 /HPF (0-3)
[2017-12-06] MEDS ORDERED: LACTULOSE 20 G/30 ML LIQUID UDC PO PRN (19:00)
--- NOTE | 2017-12-06 19:43 | NUR ---
PHARMACY CLINICAL NOTES ( VANCOMYCIN DOSING): S: 82 YO female with main complain of SOB and chronic coughing admitted for Pneumoniae. MD ordered Zosyn and Vancomycin per pharmacy. O: BUN/SCR 5/0.6 (used scr = 0.8 in calculation); WBC 7.7, TEMP max 98.0, dosing wt 165 LBS A/P: PT received Vancomycin 1 gm in ER @ ~1900, will Continue with Vancomycin 1 gm q16h ; next dose due 12/07 @ 11:00 (dose # 2); Estimated peak of 36 and trough of 18. Will order trough prior to 4th dose ( not done yet). will continue to monitor renal fxn and make the necessary adjustments if needed.
--- NOTE | 2017-12-06 20:00 | NUR ---
Photographs of skin issues completed. Sacral redness and small abrasion on right elbow noted. Areas kept clean and dry. Addendum: 12/07/17 at 0326 by MADIHA PLASCENCIA RN Amended: Links added.
[2017-12-06 20:12] VITALS: BP 132/78
--- NOTE | 2017-12-06 20:22 | NUR ---
Pt alert and oriented x 3. No lethargy noted. Pt encouraged to retain nasal cannula at all times. Skin intact around ears. No complaints of SOB at this time. Pt encouraged to expectorate secretions from productive cough. Addendum: 12/07/17 at 0326 by MADIHA PLASCENCIA RN Amended: Links added.
[2017-12-06] MEDS ORDERED: POTASSIUM CHLORIDE 20 MEQ TAB.PRT.SR PO ONE (20:45)
[2017-12-06] MEDS: ATORVASTATIN 40 MG TABLET PO SCH (21:12)
[2017-12-06] MEDS: FUROSEMIDE 40 MG/4 ML VIAL IVP SCH (21:12)
[2017-12-06] MEDS: PIPERACILLIN/TAZOBACTAM/D5W 50 ML IV SCH (23:04)
[2017-12-07 00:25] VITALS: BP 163/59
[2017-12-07] MEDS: hydrALAZINE HCL 25 MG TABLET PO PRN (01:59)
[2017-12-07] MEDS: ZOLPIDEM 5 MG TABLET PO PRN ×2 (02:08→23:57)
[2017-12-07] MEDS: ALBUTEROL SULFATE 2.5 MG/3 ML NEBU NEB PRN ×2 (02:40→08:24)
[2017-12-07] MEDS: IPRATROPIUM BROMIDE 0.5 MG/2.5 ML NEBU NEB PRN ×3 (02:40→13:47)
--- NOTE | 2017-12-07 02:50 | NUR ---
Gal provided to p.Assisted with turning and repositioning,pt able to utilize full range of motion. Pt encouraged to not expend energy due to current. No complaints of SOB or shortness of breathe during care activity diagnosis. Addendum: 12/07/17 at 0326 by MADIHA PLASCENCIA RN Amended: Links added.
--- NOTE | 2017-12-07 03:20 | NUR ---
Nasal cannula in place at all times. No complaints of SOB. Breathing treatment provided by RT. Pt sitting in upright position during sleep. Addendum: 12/07/17 at 0326 by MADIHA PLASCENCIA RN Amended: Links added.
[2017-12-07 04:38] VITALS: BP 152/53
[2017-12-07] MEDS: PIPERACILLIN/TAZOBACTAM/D5W 50 ML IV SCH ×4 (06:13→23:26)
[2017-12-07] MEDS: LEVOTHYROXINE SODIUM 25 MCG TABLET PO SCH (06:13)
[2017-12-07] MEDS: PANTOPRAZOLE SODIUM 40 MG TABLET.DR PO SCH (06:13)
[2017-12-07 06:33] LABS: BASOPHILS % (AUTO) 0.1 % (0.0-2.0); HEMATOCRIT 27.8 % (31.2-41.9); LYMPHOCYTES # (AUTO) 0.7 K/uL (20.0-40.0); LYMPHOCYTES % (AUTO) 12.8 % (20.5-51.5); MEAN CORPUSCULAR HEMOGLOBIN 26.5 uug (24.7-32.8); MEAN CORPUSCULAR HGB CONC 32 g/dL (32.3-35.6); MONOCYTES # (AUTO) 0.2 K/uL (2.0-10.0); MONOCYTES % (AUTO) 3.9 % (0.0-11.0); NEUTROPHILS # (AUTO) 4.6 K/uL (1.8-8.9); NEUTROPHILS % (AUTO) 83.2 % (38.5-71.5); PLATELET COUNT (AUTO) 109 K/uL (179-408); RED BLOOD CELL COUNT(AUTO) 3.39 MIL/uL (3.63-4.92); WHITE BLOOD COUNT (AUTO) 5.6 K/uL (3.8-11.8)
[2017-12-07 06:50] LABS: ALANINE AMINOTRANSFERASE 22 U/L (14-59); ALKALINE PHOSPHATASE 47 U/L (50-136); ASPARTATE AMINOTRANSFERASE 17 U/L (15-37); BILIRUBIN,TOTAL 0.6 mg/dL (0.2-1.0); CARBON DIOXIDE 33 mmol/L (21-32); CHLORIDE 100 mmol/L (98-107); CREATININE 0.8 mg/dL (0.6-1.3); GLUCOSE 135 mg/dL (74-106); MAGNESIUM 1.5 mg/dL (1.8-2.4); PHOSPHOROUS 3.9 mg/dL (2.5-4.9); POTASSIUM 3.1 mmol/L (3.5-5.1); TOTAL PROTEIN, SERUM 5.7 g/dL (6.4-8.2); UREA NITROGEN, BLOOD 6 mg/dL (7-18)
--- NOTE | 2017-12-07 08:15 | NUR ---
RECEIVED IN BED AWAKE ALERT AND ORIENTED NOTED WITH O2 AT 2L/M BY NASAL CANULLA AND ALSO RECEIVING HHN TREATMENTS AT THIS TIME OCCASSIONAL DRY COUGH NOTED BUT UNABLE TO SPIT UP PHLEGM HOB IS ELEVATED DENIES PAIN OR DISCOMFORTS AT THIS TIME.ALEJANDRE CATH TO GRAVITY DRAINAGE OF CLEAR YELLOW URINE MADE COMFORTABLE AND WILL CONTINUE TO OBSERVE.
[2017-12-07] MEDS: ISOSORBIDE MONONITRATE 60 MG TAB.SR.24H PO SCH (08:22)
[2017-12-07] MEDS: FUROSEMIDE 40 MG/4 ML VIAL IVP SCH ×2 (08:22→21:39)
[2017-12-07] MEDS: ASPIRIN 81 MG TAB.CHEW PO SCH (08:22)
[2017-12-07] MEDS: CLOPIDOGREL 75 MG TABLET PO SCH (08:22)
[2017-12-07] MEDS: MULTIVITAMINS,THERAPEUTIC TABLET PO SCH (08:22)
[2017-12-07] MEDS: LOSARTAN POTASSIUM 50 MG TABLET PO SCH (08:23)
[2017-12-07] MEDS: CARVEDILOL 6.25 MG TABLET PO SCH ×2 (08:26→17:01)
[2017-12-07] MEDS: Z GUARD REMEDY PASTE 57 GM TUBE TOP SCH ×2 (08:30→21:05)
--- NOTE | 2017-12-07 08:55 | NUR ---
DR MINAYA HERE TO SEE PATIENT NOTIFIED HIM OF ABNORMAL LABS POTASSIUM IS 3.1 AND MAG IS 1.[address] ORDERS[address]
[2017-12-07] MEDS ORDERED: Medication Not On Formulary EA (Multivitamins (Multivitamin) 1 TAB) PO SCH (09:00)
[2017-12-07] MEDS ORDERED: GUAIFENESIN/DEXTROMETHORPHAN TAB.SR.12H PO SCH (09:00)
[2017-12-07] MEDS ORDERED: MAGNESIUM SULFATE/D5W 100 ML IV SCH (09:00)
[2017-12-07] MEDS ORDERED: POTASSIUM CHLORIDE 20 MEQ TAB.PRT.SR PO ONE ×2 (09:00→21:45)
[2017-12-07] MEDS ORDERED: PANTOPRAZOLE SODIUM 40 MG TABLET.DR PO SCH (09:00)
[2017-12-07] MEDS: methylPREDNISolone SOD SUCC 125 MG/2 ML VIAL IV SCH ×3 (09:31→21:12)
[2017-12-07] MEDS: GUAIFENESIN/DEXTROMETHORPHAN 5 ML UDC PO SCH ×4 (09:32→21:05)
[2017-12-07 10:04] LABS: LYMPHOCYTES % (MANUAL) 13 % (20-40); MONOCYTES % (MANUAL) 4 % (2-10); NEUTROPHILS % (MANUAL) 83 % (42-75)
--- NOTE | 2017-12-07 10:22 | NUR ---
DR CUELLO HERE TO SEE PATIENT WITH NEW ORDERS AND NOTED PATIENT IS SITTING UP ON THE CHAIR IN HER ROOM AT THIS TIME STATED FEELS BETTER AT THIS TIME CONTINUES TO HAVE OCCASSIONAL DRY COUGH WITH MEDICATIONS ORDERED WILL CONTINUE TO OBSERVE AND PROVIDE COMFORT.
[2017-12-07] MEDS ORDERED: VANCOMYCIN IV 1 G in PREMIXED 0 EACH IV SCH (11:00)
[2017-12-07 11:40] VITALS: BP 100/40
--- NOTE | 2017-12-07 11:43 | NUR ---
PHARMACY CLINICAL NOTES ( VANCOMYCIN DOSING): S: 82 YO female with main complain of SOB and chronic coughing admitted for Pneumoniae. MD ordered Zosyn and Vancomycin per pharmacy. O: BUN/SCR 6/0.8; WBC 5.6, TEMP max 97.7 WT 70.7 KG HT 167.6 cm A/P: will change vanco dose to Vancomycin 1 gm IVPB q23h for predicted vanco trough level of 15.9 mcg/ml at steady state. 2nd dose due today at 1600. Will order trough prior to 4th dose ( not done yet). will continue to monitor renal fxn and make the necessary adjustments if needed. Will follow.
[2017-12-07] MEDS: ALBUTEROL SULFATE 2.5 MG/3 ML NEBU NEB SCH ×2 (13:47→18:58)
--- NOTE | 2017-12-07 14:11 | NUR ---
RESTING REMAIN ON IV ANTIBIOTICS ORDERED WITH NO ADVERSE OR ALLERGIC REACTIONS AT THIS TIME DENIES DISCOMFORTS BREATHING IS BETTER REMAINS WITH O2 AT 2L/M BY NASAL CANULA WITH HHN ORDERED AND HELPFUL WILL CONTINUE TO OBSERVE.
[2017-12-07] MEDS: VANCOMYCIN IV 1 G in PREMIXED 0 EACH IV SCH (15:14)
[2017-12-07 15:43] VITALS: BP 103/46
--- NOTE | 2017-12-07 17:33 | NUR ---
DR CLARK HERE TO SEE PATIENT WITH NO NEW ORDERS AT THIS TIME.
--- NOTE | 2017-12-07 19:52 | NUR ---
Received pt alert and oriented, in no acute distress, no SOB noted. Pt on 2L NC SpO2 97%. Pt made aware of plan of care. Safe environment implemented. Call light within reach.
[2017-12-07 20:08] VITALS: BP 132/47
[2017-12-07] MEDS: ATORVASTATIN 40 MG TABLET PO SCH (21:05)
--- NOTE | 2017-12-07 21:26 | NUR ---
Paged Dr. Boss to confirm administration of Lasix 40 mg IVP d/t pt's latest potassium level of 3.1. Received orders to administer potassium chloride PO 20 meq once. Tele monitor noted to be sinus rhythm with HR at 71. Will continue to monitor.
[2017-12-08] VITALS (7 sets, daily range): BP systolic 95–148; BP diastolic 44–82
[2017-12-08] MEDS: ALBUTEROL SULFATE 2.5 MG/3 ML NEBU NEB SCH ×4 (00:30→19:16)
[2017-12-08] MEDS: methylPREDNISolone SOD SUCC 125 MG/2 ML VIAL IV SCH ×3 (05:36→21:05)
[2017-12-08] MEDS: PIPERACILLIN/TAZOBACTAM/D5W 50 ML IV SCH ×3 (05:36→17:41)
[2017-12-08] MEDS: PANTOPRAZOLE SODIUM 40 MG TABLET.DR PO SCH (06:05)
[2017-12-08] MEDS: LEVOTHYROXINE SODIUM 25 MCG TABLET PO SCH (06:05)
[2017-12-08 06:31] LABS: HEMATOCRIT 24.8 % (31.2-41.9); HEMOGLOBIN 8.1 g/dL (10.9-14.3); LYMPHOCYTES # (AUTO) 0.7 K/uL (20.0-40.0); MEAN CORPUSCULAR HEMOGLOBIN 26.2 uug (24.7-32.8); MEAN CORPUSCULAR HGB CONC 33 g/dL (32.3-35.6); MEAN CORPUSCULAR VOLUME 80.6 fL (75.5-95.3); MONOCYTES # (AUTO) 0.4 K/uL (2.0-10.0); MONOCYTES % (AUTO) 4.4 % (0.0-11.0); NEUTROPHILS # (AUTO) 8.8 K/uL (1.8-8.9); NEUTROPHILS % (AUTO) 88.6 % (38.5-71.5); PLATELET COUNT (AUTO) 96 K/uL (179-408); RED BLOOD CELL COUNT(AUTO) 3.08 MIL/uL (3.63-4.92)
[2017-12-08 06:42] LABS: ALANINE AMINOTRANSFERASE 17 U/L (14-59); ALKALINE PHOSPHATASE 42 U/L (50-136); ASPARTATE AMINOTRANSFERASE 11 U/L (15-37); BILIRUBIN,TOTAL 0.6 mg/dL (0.2-1.0); CARBON DIOXIDE 36 mmol/L (21-32); CHLORIDE 101 mmol/L (98-107); CREATININE 0.8 mg/dL (0.6-1.3); GLUCOSE 136 mg/dL (74-106); MAGNESIUM 1.7 mg/dL (1.8-2.4); PHOSPHOROUS 3.5 mg/dL (2.5-4.9); TOTAL PROTEIN, SERUM 5.1 g/dL (6.4-8.2); UREA NITROGEN, BLOOD 9 mg/dL (7-18)
[2017-12-08 06:46] LABS: POTASSIUM 2.8 mmol/L (3.5-5.1)
--- NOTE | 2017-12-08 06:48 | NUR ---
Paged Dr. Boss/Automotive Service Consultant MD for critical lab of potassium 2.8. Awaiting a response at this time. Pt noted to be receiving breathing tx at this time. Tele monitor sinus rhythm.
[2017-12-08] MEDS: IPRATROPIUM BROMIDE 0.5 MG/2.5 ML NEBU NEB PRN ×2 (07:22→13:02)
[2017-12-08] MEDS: FUROSEMIDE 40 MG/4 ML VIAL IVP SCH ×2 (07:39→22:00)
[2017-12-08] MEDS ORDERED: POTASSIUM CHLORIDE 20 MEQ TAB.PRT.SR PO ONE ×2 (07:45→12:00)
--- NOTE | 2017-12-08 07:45 | NUR ---
Rec'd call back ffrom Dr. Boss and relayed pt's Potassium level of 2.8. Rec'd T.O. for Potassium 40mEq PO x1 dose now. T.O. read back and verified. Noted and carried out.
[2017-12-08] MEDS: CLOPIDOGREL 75 MG TABLET PO SCH (08:37)
[2017-12-08] MEDS: ISOSORBIDE MONONITRATE 60 MG TAB.SR.24H PO SCH (08:37)
[2017-12-08] MEDS: CARVEDILOL 6.25 MG TABLET PO SCH ×2 (08:37→17:42)
[2017-12-08] MEDS: LOSARTAN POTASSIUM 50 MG TABLET PO SCH (08:37)
[2017-12-08] MEDS: ASPIRIN 81 MG TAB.CHEW PO SCH (08:37)
[2017-12-08] MEDS: MULTIVITAMINS,THERAPEUTIC TABLET PO SCH (08:38)
--- NOTE | 2017-12-08 08:56 | NUR ---
Noted pt with difficulty swallowing potassium tablets. Pt only able to tolerate 1 1/2 tablet. Spoke with Yuko in Pharmacy and requested if she can change the remaining dose of 10mEq to liquid form. She will change it so pt can receive the full 40 mEq dose.
[2017-12-08] MEDS ORDERED: POTASSIUM CHLORIDE 20 MEQ POWDER PACKET PO ONE ×2 (09:00→12:45)
[2017-12-08] MEDS ORDERED: GUAIFENESIN/DEXTROMETHORPHAN TAB.SR.12H PO SCH (09:00)
--- NOTE | 2017-12-08 10:30 | NUR ---
Pt seen and examined by Dr. Arevalo with new order for left lung thoracentesis.
--- NOTE | 2017-12-08 10:35 | NUR ---
Rec'd call from Jose Alberto in U/S dept. Requesting for Pt/INR & PTT to be drawn secondary last levels are not current at 12/06. Relayed to Dr. Arevalo who disagreed. Per MD, 12/06 results are current enough. Notified Jose Alberto at ext. [phone] who said he will notify his MD.
--- NOTE | 2017-12-08 11:28 | NUR ---
PHARMACY CLINICAL NOTES ( VANCOMYCIN DOSING): S: 82 YO female with main complain of SOB and chronic coughing admitted for Pneumoniae. MD ordered Zosyn and Vancomycin per pharmacy. O: BUN/SCR 9/0.8; WBC 10, TEMP max 98.1 WT 70.7 KG HT 167.6 cm A/P: will continue vanco dose to Vancomycin 1 gm IVPB q23h for predicted vanco trough level of 15.9 mcg/ml at steady state. 3rd dose due today at 1500. Will order trough before 4th scheduled dose (due tomorrow at 1330). Will check level at that time and adjust as needed. Will follow
[2017-12-08] MEDS ORDERED: MAGNESIUM SULFATE/D5W 100 ML IV SCH (12:00)
[2017-12-08] MEDS: GUAIFENESIN/DEXTROMETHORPHAN TAB.SR.12H PO SCH ×2 (12:32→21:06)
[2017-12-08] MEDS: Z GUARD REMEDY PASTE 57 GM TUBE TOP SCH ×2 (12:33→21:06)
[2017-12-08] MEDS: ALBUTEROL SULFATE 2.5 MG/3 ML NEBU NEB PRN (15:33)
[2017-12-08] MEDS: VANCOMYCIN IV 1 G in PREMIXED 0 EACH IV SCH (15:45)
--- NOTE | 2017-12-08 16:00 | NUR ---
at 1530 Pt s/p thoracentesis by Dr. Vega. Noted pt with continuos coughing and complaint dyspnea. Dr. Vega at bedside and assisted instrument processing tech to perform CXR. CXR negative. RT at bedside and placed pt on non-rebreather at 100% O2 x5 mins. Started pt on Albuterol breathing tx for SOB with O2 via n/c. Pt felt relief within 5 mins. RT at bedside during breathing tx. Pt denies dyspnea at this time. In bed with HOB up, daughter at bedside. No s/s of acute distress at this time. Will continue to monitor.
[2017-12-08] MEDS: ATORVASTATIN 40 MG TABLET PO SCH (21:05)
--- NOTE | 2017-12-08 21:30 | NUR ---
Paged Dr. Luna to clarify administration of Lasix 40 mg IVP ordered for 2100 d/t morning potassium of 2.8. Received orders to obtain potassium stat lab and if results of potassium come back <3.5 to administer potassium chloride 40 mg PO. Lab made aware of order, will continue to monitor.
[2017-12-09] MEDS: PIPERACILLIN/TAZOBACTAM/D5W 50 ML IV SCH ×5 (00:11→23:14)
[2017-12-09] MEDS: ZOLPIDEM 5 MG TABLET PO PRN ×2 (00:19→23:06)
[2017-12-09] MEDS: ALBUTEROL SULFATE 2.5 MG/3 ML NEBU NEB SCH ×4 (00:34→19:11)
[2017-12-09] MEDS: methylPREDNISolone SOD SUCC 125 MG/2 ML VIAL IV SCH ×2 (05:10→14:33)
[2017-12-09 05:17] VITALS: BP 133/49
[2017-12-09 06:24] LABS: HEMATOCRIT 26.5 % (31.2-41.9); HEMOGLOBIN 8.5 g/dL (10.9-14.3); LYMPHOCYTES # (AUTO) 0.6 K/uL (20.0-40.0); LYMPHOCYTES % (AUTO) 4.3 % (20.5-51.5); MEAN CORPUSCULAR HEMOGLOBIN 25.7 uug (24.7-32.8); MEAN CORPUSCULAR HGB CONC 32 g/dL (32.3-35.6); MEAN CORPUSCULAR VOLUME 80.4 fL (75.5-95.3); MONOCYTES # (AUTO) 0.6 K/uL (2.0-10.0); MONOCYTES % (AUTO) 4.4 % (0.0-11.0); NEUTROPHILS # (AUTO) 12.3 K/uL (1.8-8.9); NEUTROPHILS % (AUTO) 91.3 % (38.5-71.5); PLATELET COUNT (AUTO) 106 K/uL (179-408); RED BLOOD CELL COUNT(AUTO) 3.29 MIL/uL (3.63-4.92); WHITE BLOOD COUNT (AUTO) 13.4 K/uL (3.8-11.8)
[2017-12-09] MEDS: PANTOPRAZOLE SODIUM 40 MG TABLET.DR PO SCH (06:37)
[2017-12-09] MEDS: LEVOTHYROXINE SODIUM 25 MCG TABLET PO SCH (06:37)
[2017-12-09 06:41] LABS: ALANINE AMINOTRANSFERASE 16 U/L (14-59); ALKALINE PHOSPHATASE 44 U/L (50-136); ASPARTATE AMINOTRANSFERASE 17 U/L (15-37); BILIRUBIN,TOTAL 0.5 mg/dL (0.2-1.0); CARBON DIOXIDE 39 mmol/L (21-32); CHLORIDE 99 mmol/L (98-107); CREATININE 0.9 mg/dL (0.6-1.3); GLUCOSE 132 mg/dL (74-106); PHOSPHOROUS 4.2 mg/dL (2.5-4.9); POTASSIUM 3.5 mmol/L (3.5-5.1); TOTAL PROTEIN, SERUM 5.3 g/dL (6.4-8.2); UREA NITROGEN, BLOOD 13 mg/dL (7-18)
--- NOTE | 2017-12-09 07:25 | NUR ---
received report from cable assembler nurse, patient in bed asleep, no distress noted at this time, bed in low position, side rails up x2. bed alarm on.
[2017-12-09] MEDS: IPRATROPIUM BROMIDE 0.5 MG/2.5 ML NEBU NEB PRN ×2 (07:36→13:41)
[2017-12-09] MEDS: Z GUARD REMEDY PASTE 57 GM TUBE TOP SCH ×2 (09:00→20:38)
[2017-12-09] MEDS: MULTIVITAMINS,THERAPEUTIC TABLET PO SCH (09:37)
[2017-12-09] MEDS: ASPIRIN 81 MG TAB.CHEW PO SCH (09:37)
[2017-12-09] MEDS: ISOSORBIDE MONONITRATE 60 MG TAB.SR.24H PO SCH (09:37)
[2017-12-09] MEDS: GUAIFENESIN/DEXTROMETHORPHAN TAB.SR.12H PO SCH ×3 (09:38→20:38)
[2017-12-09] MEDS: LOSARTAN POTASSIUM 50 MG TABLET PO SCH (09:38)
[2017-12-09] MEDS: CLOPIDOGREL 75 MG TABLET PO SCH (09:38)
[2017-12-09] MEDS: CARVEDILOL 6.25 MG TABLET PO SCH ×2 (09:38→17:44)
[2017-12-09] MEDS: FUROSEMIDE 40 MG/4 ML VIAL IVP SCH ×2 (09:39→22:11)
[2017-12-09 11:40] VITALS: BP 128/49
--- NOTE | 2017-12-09 14:11 | NUR ---
PHARMACY CLINICAL NOTES ( VANCOMYCIN DOSING): S: 82 YO female with main complain of SOB and chronic coughing admitted for Pneumoniae. MD ordered Zosyn and Vancomycin per pharmacy. O: BUN/SCR 13/0.9; WBC 13.4, TEMP 98 WT 70.7 KG HT 167.6 cm A/P: will continue same dose of Vancomycin 1 gm IVPB q23h for today. 4th dose today at 1400. Will order trough before 5th scheduled dose (due tomorrow at 1230- trough level before 4th dose was not ordered in [facility]). Will check level at that time and adjust as needed. Will follow
[2017-12-09] MEDS: VANCOMYCIN IV 1 G in PREMIXED 0 EACH IV SCH (14:22)
[2017-12-09 16:06] VITALS: BP 122/71
[2017-12-09] MEDS: ALBUTEROL SULFATE 2.5 MG/3 ML NEBU NEB PRN (17:03)
--- NOTE | 2017-12-09 18:43 | NUR ---
Patient has been cooperating with care. Patient has had multiple episodes throughout the shift where she states she couldn't breathe. Respiratory called for treatments which give some relief for short periods of time. Currently patient is in bed, bed in low position, side rails up x2. Bed alarm on.
[2017-12-09 19:20] VITALS: BP 130/54
--- NOTE | 2017-12-09 20:00 | NUR ---
RECEIVED PATIENT AWAKE IN BED. A/O X4. DENIES PAIN. DENIES SON. ON O2 2L NC SATING WELL. HEPLOCK INTACT AND PATENT, NOTED TO RIGHT FA #22 GAUGE. F/C INTACT AND DRAINING WELL. VS WNL. CALL LIGHT IN REACH. ALL NEEDS ATTENDED. WILL CONTINUE TO MONITOR AND ASSESS.
[2017-12-09] MEDS: ATORVASTATIN 40 MG TABLET PO SCH (20:38)
[2017-12-09] MEDS: methylPREDNISolone SOD SUCC 40 MG/ML VIAL IV SCH (20:42)
[2017-12-09] MEDS ORDERED: methylPREDNISolone SOD SUCC 125 MG/2 ML VIAL IV SCH (21:00)
[2017-12-09] MEDS ORDERED: POTASSIUM CHLORIDE 20 MEQ TAB.PRT.SR PO ONE (22:00)
--- NOTE | 2017-12-09 22:10 | NUR ---
CALLED OUT TO DR. GREER FISH CUTTING MACHINE OPERATOR TO INFORM HIM THAT POTASSIUM LEVEL IS 3.0 AND PATIENT IS SCHEDULED TO RECEIVED LASIX 40MG IV. RECEIVED NEW ORDER FOR PATIENT TO HAVE K+, 80 Meq PO X1 NOW. PIGMENT WEIGHER NOTIFIED. ALL NEEDS ATTENDED. WILL CONTINUE TO MONITOR.
[2017-12-10] MEDS: ALBUTEROL SULFATE 2.5 MG/3 ML NEBU NEB SCH ×5 (00:30→19:24)
[2017-12-10 03:24] VITALS: BP 167/60
[2017-12-10] MEDS: hydrALAZINE HCL 25 MG TABLET PO PRN (04:45)
--- NOTE | 2017-12-10 04:50 | NUR ---
PATIENTS BLOOD PRESSURE 167/60. ALL OTHER VSS. PATIENT GIVEN HYDRALAZINE 25MG PO PRN ORDERED. WILL CONTINUE TO MONITOR.
[2017-12-10] MEDS: PIPERACILLIN/TAZOBACTAM/D5W 50 ML IV SCH ×3 (05:30→17:08)
--- NOTE | 2017-12-10 06:04 | NUR ---
PATIENT ASLEEP IN BED. SLEPT WELL. NO S/S OF PAIN OR DISCOMFORT. NO RESP. DISTRESS NOTED. VS WNL. CALL LIGHT IN REACH. ALL NEEDS ATTENDED. WILL CONTINUE TO MONITOR AND ASSESS.
[2017-12-10 06:22] VITALS: BP 145/54
[2017-12-10] MEDS: PANTOPRAZOLE SODIUM 40 MG TABLET.DR PO SCH (06:37)
[2017-12-10] MEDS: LEVOTHYROXINE SODIUM 25 MCG TABLET PO SCH (06:38)
--- NOTE | 2017-12-10 07:30 | NUR ---
AWAKE ALERT AND ORIENTED X3 TOLERATING BREATHING TX WELL. ON AND OFF PRODUCTIVE COUGH. ON 3L 02 VIA NC SATURATING 97%
[2017-12-10] MEDS: IPRATROPIUM BROMIDE 0.5 MG/2.5 ML NEBU NEB PRN ×2 (07:54→13:00)
[2017-12-10] MEDS: GUAIFENESIN/DEXTROMETHORPHAN TAB.SR.12H PO SCH ×2 (08:31→20:27)
[2017-12-10] MEDS: CARVEDILOL 6.25 MG TABLET PO SCH ×2 (08:32→17:09)
[2017-12-10] MEDS: FUROSEMIDE 40 MG/4 ML VIAL IVP SCH ×2 (08:32→20:27)
[2017-12-10] MEDS: MULTIVITAMINS,THERAPEUTIC TABLET PO SCH (08:33)
[2017-12-10] MEDS: ISOSORBIDE MONONITRATE 60 MG TAB.SR.24H PO SCH (08:33)
[2017-12-10] MEDS: ASPIRIN 81 MG TAB.CHEW PO SCH (08:34)
[2017-12-10] MEDS: Z GUARD REMEDY PASTE 57 GM TUBE TOP SCH ×2 (08:34→20:27)
[2017-12-10] MEDS: methylPREDNISolone SOD SUCC 40 MG/ML VIAL IV SCH ×2 (08:34→20:26)
[2017-12-10] MEDS: CLOPIDOGREL 75 MG TABLET PO SCH (08:38)
--- NOTE | 2017-12-10 10:04 | NUR ---
SEEN BY PHYSICAL THERAPIST SEE NOTES
[2017-12-10 11:28] VITALS: BP 148/53
--- NOTE | 2017-12-10 11:28 | NUR ---
SEEN BY DR MICHAEL SEE NOTES
[2017-12-10] MEDS: LOSARTAN POTASSIUM 50 MG TABLET PO SCH (11:59)
--- NOTE | 2017-12-10 12:32 | NUR ---
PHARMACY CLINICAL NOTES ( VANCOMYCIN DOSING): S: 82 YO female with main complain of SOB and chronic coughing admitted for Pneumoniae. MD ordered Zosyn and Vancomycin per pharmacy. O: BUN/SCR 13/0.9(12/09) WBC 13.4(12/09), TEMP 98.2 WT 70.7 KG HT 167.6 cm A/P: will continue same dose of Vancomycin 1 gm IVPB q23h for today. 4th dose yesterday at 1400. Will order trough before 5th scheduled dose (due today at 1230- trough level before 4th dose was not ordered in [facility]). Will check level at that time and adjust as needed. Will follow Addendum: 12/10/17 at 1326 by JOSE BRIDGES VANCOMYCIN TROUGH 10.7 CHANGE VANCOMYCIN TO 1GM IVPB Q18H ESTIMATE TROUGH 15.7
[2017-12-10 12:52] LABS: BASOPHILS # (AUTO) 0.2 K/uL (0.0-8.0); BASOPHILS % (AUTO) 1.4 % (0.0-2.0); EOSINOPHILS % (AUTO) 0.1 % (0.0-7.0); HEMATOCRIT 27.2 % (31.2-41.9); HEMOGLOBIN 8.5 g/dL (10.9-14.3); LYMPHOCYTES # (AUTO) 0.4 K/uL (20.0-40.0); LYMPHOCYTES % (AUTO) 3.4 % (20.5-51.5); MEAN CORPUSCULAR HEMOGLOBIN 25.2 uug (24.7-32.8); MEAN CORPUSCULAR HGB CONC 31 g/dL (32.3-35.6); MEAN CORPUSCULAR VOLUME 80.3 fL (75.5-95.3); MONOCYTES % (AUTO) 8.6 % (0.0-11.0); NEUTROPHILS # (AUTO) 9.7 K/uL (1.8-8.9); NEUTROPHILS % (AUTO) 86.5 % (38.5-71.5); PLATELET COUNT (AUTO) 109 K/uL (179-408); RED BLOOD CELL COUNT(AUTO) 3.39 MIL/uL (3.63-4.92); WHITE BLOOD COUNT (AUTO) 11.3 K/uL (3.8-11.8)
[2017-12-10 13:39] LABS: ALANINE AMINOTRANSFERASE 22 U/L (14-59); ALKALINE PHOSPHATASE 47 U/L (50-136); ASPARTATE AMINOTRANSFERASE 18 U/L (15-37); BILIRUBIN,TOTAL 0.5 mg/dL (0.2-1.0); CARBON DIOXIDE 36 mmol/L (21-32); CHLORIDE 97 mmol/L (98-107); GLUCOSE 145 mg/dL (74-106); MAGNESIUM 1.9 mg/dL (1.8-2.4); POTASSIUM 3.2 mmol/L (3.5-5.1); TOTAL PROTEIN, SERUM 5.3 g/dL (6.4-8.2); UREA NITROGEN, BLOOD 15 mg/dL (7-18)
[2017-12-10] MEDS ORDERED: VANCOMYCIN IV 1 G in PREMIXED 0 EACH IV SCH (14:00)
[2017-12-10] MEDS ORDERED: IPRATROPIUM BROMIDE 0.5 MG/2.5 ML NEBU NEB PRN (14:45)
--- NOTE | 2017-12-10 15:39 | NUR ---
HHN TX NOT GIVEN AT THIS TIME, HHN TX WAS GIVEN AT 1300. NEW SCHEDULED HHN TX ARE TO BE GIVEN Q4. NEXT HHN TX TO BE GIVEN AT 1930.
[2017-12-10 15:58] VITALS: BP 149/60
--- NOTE | 2017-12-10 18:41 | NUR ---
CONTINUE WITH RESPIRATORY OBSERVATION, BREATHING TX ORDERED, IV ANTIBIOTIC. GOOD PARTICIPATION WITH PHYSICAL THERAPIST ABLE TO WALK FROM BED TO OUT DOOR AND SAT FOR A WHILE.
--- NOTE | 2017-12-10 18:46 | NUR ---
AWAITING CALL FROM LIZ FOR BED AVAILABILITY GINA
[2017-12-10 19:00] VITALS: BP 149/61
--- NOTE | 2017-12-10 19:30 | NUR ---
Received patient from day shift nurse in stable condition. No acute distress noted. Patient is A/Ox4 & able to make all needs known. Pertinent assessment completed. On 3L o2 via NC. No SOB noted. Patient has a right forearm 20G SL IV site patent & flushing well. Llanos cath bag is off the floor with urine flowing through. Bed in low position, locked, x2 side rails up. Per day shift nurse & CM, patient to transfer [facility] to [facility], Bed is available now. To be under Dr. Willams. Call light in reach. Will continue to monitor.
[2017-12-10] MEDS: ATORVASTATIN 40 MG TABLET PO SCH (20:26)
[2017-12-10] MEDS ORDERED: LACTOBACILLUS RHAMNOSUS GG 1 EACH CAPSULE PO SCH (21:00)
--- NOTE | 2017-12-10 21:10 | NUR ---
Patient being discharged to [facility] at [facility] per MD order. Patient in stable condition upon d/c. Belongings list signs & completed. Vitals WNL. Discharge summary completed. Report given to Dulce trent at [facility]. Meds administered per MD order before d/c. Pics taken & placed in chart.
--- NOTE | 2017-12-10 21:15 | NUR ---
Patient d/c'd via stretcher gurney in stable condition. No acute distress noted. All belongings with patient upon discharge.
== END 2017-12-10 21:48 | DRG 280 ==
LOC: ER 15:59 → TELE 17:52 → MED 12-08 19:32
PROVIDERS: ADMIT Internal Medicine Nephrology; ATTEND Internal Medicine
PROC: 0W9B3ZX Drainage of Left Pleural Cavity, Percutaneous Approach, Diagnostic (ICD-10-PCS; principal; 2017-12-08)
DX: I11.0 Hypertensive heart disease with heart failure (principal); I21.A1 Myocardial infarction type 2; J18.9 Pneumonia, unspecified organism; J44.0 Chronic obstructive pulmonary disease with (acute) lower respiratory infection; J91.8 Pleural effusion in other conditions classified elsewhere; I50.33 Acute on chronic diastolic (congestive) heart failure; I48.0 Paroxysmal atrial fibrillation; I73.9 Peripheral vascular disease, unspecified; Z95.820 Peripheral vascular angioplasty status with implants and grafts; Z79.02 Long term (current) use of antithrombotics/antiplatelets; Z79.899 Other long term (current) drug therapy; E78.5 Hyperlipidemia, unspecified; F17.210 Nicotine dependence, cigarettes, uncomplicated; E89.0 Postprocedural hypothyroidism; K21.9 Gastro-esophageal reflux disease without esophagitis; Z88.5 Allergy status to narcotic agent; D69.6 Thrombocytopenia, unspecified; E83.42 Hypomagnesemia; E87.6 Hypokalemia; I25.10 Atherosclerotic heart disease of native coronary artery without angina pectoris; K57.90 Diverticulosis of intestine, part unspecified, without perforation or abscess without bleeding; Z79.82 Long term (current) use of aspirin; D64.9 Anemia, unspecified; I70.0 Atherosclerosis of aorta; G89.29 Other chronic pain; M54.9 Dorsalgia, unspecified
CPT/HCPCS: 32555; 36415; 70030-TC; 71045; 76604; 83605; 83615; 83735; 83986; 84100; 84132; 84155; 85025; 85730; 87040; 87070; 87086; 87205; 93005; 94640; 94664; 97110; 97116; 97530; A4663; G0378; J1940; J2405; J2543; J2920; J2930; J3370; J3475; J3590; J7040

== ENCOUNTER 2020-02-27 17:25 | Emergency (ER) | payer MEDICARE, OTHER ==
[~2020-02-27] VITALS: Ht 167.6 cm; Wt 72.6 kg
[~2020-02-27 17:25] MED LIST changes: -FLAX10003 PO; +HYDR-894 PO; -HYDR25TA86 PO; -HYDR28.316 RC; +LACT10SO PO; -LACT1CAP57 PO; -LACT1CAP71 PO; -LEVO25TA2 PO; +LEVO25TA9 PO; -LEVO750T21 PO; +LOPE-195 PO; -LOPE2CAP40 PO; -LOSA100T15 PO; -LOSA50TA3 PO; +LOSA50TA39 PO; -MENT71OI TOP; -METR500T PO; +MULT-594 PO; -MULT1TAB73 PO; -PROT946L PO
[2020-02-27] MEDS ORDERED: IV NORMAL SALINE 1000 ML BAG IV ONE (17:45)
--- NOTE | 2020-02-27 18:37 | NUR ---
PATIENT OUT OF UNIT FOR CT SCAN.
[2020-02-27 18:41] LABS: BASOPHILS # (AUTO) 0.3 K/uL (0.0-8.0); BASOPHILS % (AUTO) 3.8 % (0.0-2.0); EOSINOPHILS % (AUTO) 0.6 % (0.0-7.0); HEMATOCRIT 43.4 % (31.2-41.9); HEMOGLOBIN 14.7 g/dL (10.9-14.3); LYMPHOCYTES # (AUTO) 1.2 K/uL (20.0-40.0); LYMPHOCYTES % (AUTO) 13.5 % (20.5-51.5); MEAN CORPUSCULAR HEMOGLOBIN 29.4 uug (24.7-32.8); MEAN CORPUSCULAR HGB CONC 34 g/dL (32.3-35.6); MEAN CORPUSCULAR VOLUME 86.9 fL (75.5-95.3); MONOCYTES # (AUTO) 0.8 K/uL (2.0-10.0); MONOCYTES % (AUTO) 9.9 % (0.0-11.0); NEUTROPHILS # (AUTO) 6.1 K/uL (1.8-8.9); NEUTROPHILS % (AUTO) 72.2 % (38.5-71.5); PLATELET COUNT (AUTO) 155 K/uL (179-408); RED BLOOD CELL COUNT(AUTO) 4.99 MIL/uL (3.63-4.92); WHITE BLOOD COUNT (AUTO) 8.5 K/uL (3.8-11.8)
[2020-02-27 18:52] LABS: CREATININE 1.1 mg/dL (0.6-1.3)
[2020-02-27] MEDS ORDERED: TRAM50TA2 PO (18:54)
[2020-02-27] MEDS ORDERED: VITAMIN D2 PO (18:54)
[2020-02-27] MEDS ORDERED: CIPR500T5 PO (18:54)
[2020-02-27] MEDS ORDERED: ACET-2605 PO (18:54)
[2020-02-27] MEDS ORDERED: MULT-594 PO (18:54)
[2020-02-27] MEDS ORDERED: SPIR25TA6 PO (18:54)
[2020-02-27] MEDS ORDERED: AMLO10TA59 PO (18:54)
[2020-02-27] MEDS ORDERED: ACET-2154 PO (18:54)
[2020-02-27] MEDS ORDERED: ATROPINE PO (18:54)
[2020-02-27] MEDS ORDERED: DIPHENOXYLATE PO (18:54)
[2020-02-27] MEDS ORDERED: APIX5TAB4 PO (18:54)
[2020-02-27] MEDS ORDERED: HYDR-4384 PO (18:54)
--- NOTE | 2020-02-27 18:56 | NUR ---
PATIENT BACK FROM CT SCAN WITH NO DISTRESS NOTED.
[2020-02-27 18:58] LABS: BILIRUBIN,DIRECT 0.3 mg/dL (0.0-0.2); BILIRUBIN,TOTAL 0.9 mg/dL (0.2-1.0); TOTAL PROTEIN, SERUM 7.5 g/dL (6.4-8.2)
[2020-02-27] MEDS ORDERED: ONDANSETRON 4 MG/2 ML VIAL IV ONE (19:45)
[2020-02-27] MEDS ORDERED: ONDANSETRON 4 MG/2 ML VIAL ONE (19:52)
--- NOTE | 2020-02-27 19:56 | NUR ---
SPOKE TO PATIENT'S DAUGHTER CIRO RODRIGUEZ. PATIENT WILL BE GOING BACK TO [facility] [address] [id number].
--- NOTE | 2020-02-27 20:06 | NUR ---
LEONIDES ABDULLAHI FROM [facility]. ETA IS 21OO.
--- NOTE | 2020-02-27 21:51 | NUR ---
gave SBAR RESULT [facility] UNIT 22.
--- NOTE | 2020-02-27 21:52 | NUR ---
IV removed. Catheter intact and site benign. Pressure and 4x4 gauze applied to site. No bleeding noted.
--- NOTE | 2020-02-27 22:05 | NUR ---
Patient discharged to home in stable condition VIA [facility]. Written and verbal after care instructions given. Patient verbalizes understanding of instructions. Stressed follow up or return to ER for worsening s/s.
[2020-02-27 22:06] VITALS: BP 133/66
[2020-02-27 22:08] LABS: *BILIRUBIN,URIN NEGATIVE (NEGATIVE); *BLOOD, URINE NEGATIVE (NEGATIVE); *CLARITY,URINE CLEAR (CLEAR); *COLOR,URINE YELLOW (YELLOW); *KETONES,URINE 2+ (NEGATIVE); *UROBILINOGEN,URINE 0.2 E.U./dl (NORMAL); LEUKOCYTE ESTERASE ,URINE NEGATIVE (NEGATIVE); NITRITE, URINE NEGATIVE (NEGATIVE); UGLUCOSE NEGATIVE (NEGATIVE)
== END 2020-02-27 22:06 ==
LOC: ER 17:25
DX: R10.84 Generalized abdominal pain (principal); Z20.828 Contact with and (suspected) exposure to other viral communicable diseases; I73.9 Peripheral vascular disease, unspecified; E78.5 Hyperlipidemia, unspecified; I11.0 Hypertensive heart disease with heart failure; I50.9 Heart failure, unspecified; I48.91 Unspecified atrial fibrillation; Z88.5 Allergy status to narcotic agent; Z79.01 Long term (current) use of anticoagulants; Z79.899 Other long term (current) drug therapy; Z90.49 Acquired absence of other specified parts of digestive tract; K44.9 Diaphragmatic hernia without obstruction or gangrene; J98.11 Atelectasis
CPT/HCPCS: 36415; 71045; 74176; 80048; 80076; 81003; 83605; 83690; 84484; 85025; 85730; 87040 ×2; 87086; 87426; 93005; 96361; 96374; 99285; J2405; 70030-TC; A4663; J7030

== ENCOUNTER 2020-05-03 16:40 | Emergency (ER) | payer MEDICARE, OTHER ==
[~2020-05-03] VITALS: Ht 165.1 cm; Wt 72.6 kg
[~2020-05-03 16:40] MED LIST changes: +ACET-2154 PO; +ACET-2605 PO; +AMLO10TA59 PO; +APIX5TAB4 PO; -ASPI81TA31 PO; +ATROPINE PO; +CIPR500T5 PO; -CLOP75TA15 PO; +DIPHENOXYLATE PO; +HYDR-4384 PO; -ISOS60TA4 PO; -LACT10SO PO; -LOPE-195 PO; -LOSA50TA39 PO; +SPIR25TA6 PO; +TRAM50TA2 PO; +VITAMIN D2 PO
[2020-05-03] MEDS ORDERED: NEOMY/BACITRA/POLYMYXIN B OINT UD PACKET TP ONE ×2 (17:00→17:36)
[2020-05-03] MEDS ORDERED: CEphaleXIN 500 MG CAPSULE PO ONE (17:00)
[2020-05-03] MEDS ORDERED: TDAP DIPH,PERTUSS,TET VAC/PF 0.5 ML DISP.SYRIN IM ONE ×2 (17:00→17:37)
[2020-05-03] MEDS ORDERED: LIDOCAINE 2%-EPI 1:100,000 20 ML VIAL TP ONE (17:00)
[2020-05-03] MEDS ORDERED: LIDOCAINE 2%-EPI 1:100,000 20 ML VIAL ONE (17:22)
[2020-05-03] MEDS ORDERED: CEphaleXIN 500 MG CAPSULE ONE (17:35)
[2020-05-03] MEDS ORDERED: CEPH500C2 PO (17:58)
[2020-05-03] MEDS ORDERED: HYDR-3972 PO (17:58)
--- NOTE | 2020-05-03 18:30 | NUR ---
Patient discharged to home in stable condition with pati. Written and verbal after care instructions given. Patient and daughter verbalizes understanding of instructions. Stressed follow up or return to ER for worsening s/s.
--- NOTE | 2020-05-03 18:37 | NUR ---
PT WAS EVALUATED BY DR HAMILTON. PT WAS D/C'd TO HOME. D/C INSTRUCTIONS GIVEN TO THE PT AND TO HER DOUGHTER BY DR HAMILTON.
[2020-05-03 18:38] VITALS: BP 136/71
== END 2020-05-03 18:39 ==
LOC: ER 16:41
DX: S61.411A Laceration without foreign body of right hand, initial encounter (principal); W22.01XA Walked into wall, initial encounter; Y93.89 Activity, other specified; Y92.89 Other specified places as the place of occurrence of the external cause; S63.91XA Sprain of unspecified part of right wrist and hand, initial encounter; E03.9 Hypothyroidism, unspecified; Z99.3 Dependence on wheelchair; F17.210 Nicotine dependence, cigarettes, uncomplicated; I25.10 Atherosclerotic heart disease of native coronary artery without angina pectoris; I73.9 Peripheral vascular disease, unspecified; I48.0 Paroxysmal atrial fibrillation; I11.0 Hypertensive heart disease with heart failure; Z79.899 Other long term (current) drug therapy; E78.5 Hyperlipidemia, unspecified; I50.32 Chronic diastolic (congestive) heart failure
CPT/HCPCS: 73130; 90715; A4217; A4663

== ENCOUNTER 2020-10-19 15:20 | Inpatient (IN) | payer MEDICARE, OTHER ==
[~2020-10-19] VITALS: Ht 167.6 cm; Wt 72.7 kg
[~2020-10-19 15:20] MED LIST changes: +CEPH500C2 PO; +HYDR-3972 PO
[2020-10-19 17:01] LABS: HEMATOCRIT 40.2 % (31.2-41.9); MEAN CORPUSCULAR HEMOGLOBIN 29.2 uug (24.7-32.8); PLATELET COUNT (AUTO) 101 K/uL (179-408)
[2020-10-19 17:08] LABS: CREATININE 1.2 mg/dL (0.6-1.3); POTASSIUM 4.8 mmol/L (3.5-5.1)
[2020-10-19 17:14] LABS: BILIRUBIN,TOTAL 0.5 mg/dL (0.2-1.0)
[2020-10-19] MEDS ORDERED: KETOROLAC TROMETHAMINE 30 MG INJ ONE (17:44)
[2020-10-19] MEDS ORDERED: MORPHINE SULFATE 2 MG/1 ML DISP.SYRIN ONE (17:44)
[2020-10-19] MEDS ORDERED: KETOROLAC TROMETHAMINE 30 MG INJ IM ONE (17:45)
[2020-10-19] MEDS ORDERED: MORPHINE SULFATE 2 MG/1 ML DISP.SYRIN IM ONE (17:45)
[2020-10-19] MEDS ORDERED: VANCOMYCIN 1G/D5W 200 ML PIGGYBACK IV ONE (17:45)
--- NOTE | 2020-10-19 18:00 | NUR ---
Per pt to be admitted to M/S for cellulitis, pt's daughter stated pt's pmd is . EPIC paged, to call back.
[2020-10-19] MEDS ORDERED: VANCOMYCIN IV 200 ML ONE (18:02)
--- NOTE | 2020-10-19 20:00 | NUR ---
Pt resting in bed. No signs of distress. Pts. daughter is at bedside. Vss. Will continue to monitor.
--- NOTE | 2020-10-19 22:07 | NUR ---
Gave report to GEORGE Trejo.
[2020-10-19] MEDS: HYDROMORPHONE HCL 2 MG TABLET PO PRN (22:15)
[2020-10-19] MEDS ORDERED: HYDROMORPHONE HCL 2 MG TABLET ONE (22:16)
--- NOTE | 2020-10-19 22:45 | NUR ---
Patient brought to Tele unit from Er accompanied by staff nurse via [facility]. Dx of cellulitis of left lower leg.Patient awake alert x4.On Ra.Denies SOB.Iv on Rt Fa .Body assessment done. Left lower leg noted with redness and swelling no skin breakdown.Patient on tele NSR. notified .Call light with in reach.Safety measures in place. VSs.
[2020-10-20 00:17] VITALS: BP 120/60
[2020-10-20] MEDS ORDERED: ONDANSETRON 4 MG/2 ML VIAL IV PRN (00:30)
[2020-10-20 00:36] VITALS: BP 118/56
[2020-10-20 04:32] VITALS: BP 105/62
[2020-10-20 05:42] LABS: HEMATOCRIT 36.6 % (31.2-41.9); MEAN CORPUSCULAR HEMOGLOBIN 29.4 uug (24.7-32.8); MEAN CORPUSCULAR VOLUME 88.8 fL (75.5-95.3); PLATELET COUNT (AUTO) 86 K/uL (179-408)
[2020-10-20 06:01] LABS: BILIRUBIN,TOTAL 0.7 mg/dL (0.2-1.0); CREATININE 1.1 mg/dL (0.6-1.3); MAGNESIUM 1.9 mg/dL (1.8-2.4); PHOSPHOROUS 4.1 mg/dL (2.5-4.9); POTASSIUM 4.6 mmol/L (3.5-5.1); TOTAL PROTEIN, SERUM 6.1 g/dL (6.4-8.2)
[2020-10-20 06:27] LABS: THYROID STIMULATING HORMONE 1.086 mIU/mL (0.358-3.740)
[2020-10-20] MEDS: PANTOPRAZOLE SODIUM 40 MG TABLET.DR PO SCH (06:43)
--- NOTE | 2020-10-20 06:43 | NUR ---
Patient awake .No respiratory distress noted through out the shift. Denies pain. Refused protonix this am.Stated she used to take it the afternoon .Risk and benefits explained .Patient still refused. She further stated she wants to talk to Md this morning. Will endorse to oncoming shift.
--- NOTE | 2020-10-20 08:00 | NUR ---
PT IN BED RESTING, C/O LEFT LOWER LEG PAIN 10/01, MEDICATION ADMINISTERED ORDERED. PT A/OX4, PT ON ROOM AIR, NO SIGNS OF DISTRESS, PT VOIDING VIA BEDPAN, IV ON THE LEFT FA SALINE LOCK. BED LOW AND LOCKED, [facility], WILL CONTINUE TO MONITOR.
[2020-10-20] MEDS: MORPHINE SULFATE 2 MG/1 ML DISP.SYRIN IM PRN ×3 (08:02→16:40)
[2020-10-20] MEDS ORDERED: ZOLPIDEM 5 MG TABLET PO PRN (10:30)
[2020-10-20 12:00] VITALS: BP 112/57
[2020-10-20] MEDS: LEVOTHYROXINE SODIUM 25 MCG TABLET PO SCH (12:09)
[2020-10-20] MEDS: PIPERACILLIN SODIUM/TAZOBACTAM 3.375 G in IV DEXTROSE 5% 50 ML IV SCH ×3 (12:09→23:11)
[2020-10-20] MEDS: MULTIVITAMINS,THERAPEUTIC TABLET PO SCH (12:09)
[2020-10-20] MEDS: VANCOMYCIN IV 750 MG in IV DEXTROSE 5% 250 ML IV SCH (13:06)
[2020-10-20 16:31] VITALS: BP 134/71
[2020-10-20] MEDS ORDERED: BACI1TAB3 PO (17:06)
[2020-10-20] MEDS ORDERED: LOSA100T31 PO (17:06)
[2020-10-20] MEDS: MIRALAX 17 GM POWD.PACK PO PRN (17:36)
[2020-10-20] MEDS: ATORVASTATIN 10 MG TABLET PO SCH (20:02)
[2020-10-20 20:12] VITALS: BP 146/74
[2020-10-20] MEDS: HYDROMORPHONE HCL 2 MG TABLET PO PRN (21:22)
[2020-10-21] MEDS: MORPHINE SULFATE 2 MG/1 ML DISP.SYRIN IM PRN ×2 (02:50→08:45)
[2020-10-21] MEDS: VANCOMYCIN IV 750 MG in IV DEXTROSE 5% 250 ML IV SCH ×2 (04:01→22:38)
[2020-10-21 04:09] VITALS: BP 137/72
[2020-10-21] MEDS: PIPERACILLIN SODIUM/TAZOBACTAM 3.375 G in IV DEXTROSE 5% 50 ML IV SCH ×2 (05:22→13:44)
[2020-10-21] MEDS: LEVOTHYROXINE SODIUM 25 MCG TABLET PO SCH (06:01)
[2020-10-21] MEDS: PANTOPRAZOLE SODIUM 40 MG TABLET.DR PO SCH (06:01)
[2020-10-21] MEDS: IV NS 1000 ML 1,000 ML IV PRN (06:02)
[2020-10-21 06:26] LABS: HEMATOCRIT 37.7 % (31.2-41.9); MEAN CORPUSCULAR HEMOGLOBIN 29.4 uug (24.7-32.8); MEAN CORPUSCULAR VOLUME 87.9 fL (75.5-95.3); PLATELET COUNT (AUTO) 90 K/uL (179-408)
--- NOTE | 2020-10-21 08:00 | NUR ---
PT IN BED RESTING, C/O PAIN 10/10 MEDICATION GIVEN ORDERED, PT STATED SHE HAD NAUSEA, MEDS GIVEN ORDERED. PT A/OX4, ON ROOM AIR, NO SIGNS OF DISTRESS NOTED,, IV ON THE RIGHT FA INFUSING NS AT 70CC/HR. BED IN LOW AND LOCKED POSITION, CALL LIGHT WITHIN REACH, WILL CONTINUE TO MONITOR.
--- NOTE | 2020-10-21 08:07 | NUR ---
PT REFUSED LEVOTHYROXINE YESTERDAY 10/20/20, BECAUSE IT WAS NOT SCHEDULED IN THE MORNING. LEVOTHYROXINE WAS SCHEDULED 10/20/20 AT 1200.
[2020-10-21] MEDS: MULTIVITAMINS,THERAPEUTIC TABLET PO SCH (08:42)
--- NOTE | 2020-10-21 11:00 | NUR ---
PER PHARMACY: VANCO TROUGH TO BE DRAWN AT 2200 TODAY, IF LEVEL IS OVER 20 THEN HOLD THE 2300 VANCO DOSE. WILL ENDORSE TO ONCOMING NIGHT RN.
[2020-10-21 12:00] VITALS: BP 146/76
[2020-10-21] MEDS ORDERED: SWABABLE VALVE TRANSFER SET EA MC ONE (12:10)
[2020-10-21] MEDS ORDERED: IOHEXOL 300MG/ML 100 ML INFUS..BTL ONE (12:10)
[2020-10-21] MEDS ORDERED: IV NORMAL SALINE 250 ML IV ONE (12:10)
--- NOTE | 2020-10-21 12:30 | NUR ---
pt went down for CT of the abdomen/pelvis with contrast. Consent form signed.
--- NOTE | 2020-10-21 13:00 | NUR ---
Pt received from radiologist. Back in bed resting comfortably. No s&s of acute distress noted. Will continue to monitor.
[2020-10-21 16:38] VITALS: BP 133/71
[2020-10-21] MEDS: ACETAMINOPHEN 325 MG TABLET PO PRN (18:42)
--- NOTE | 2020-10-21 19:30 | NUR ---
RECEIVED PT AWAKE, ALERT AND ORIENTEDX3.PT IN NO ACUTE RESPIRATORY DISTRESS. IV INTACT.SAFETY AND COMFORT PROVIDED. WILL CONTINUE TO MONITOR.
[2020-10-21] MEDS: ATORVASTATIN 10 MG TABLET PO SCH (20:17)
[2020-10-21 20:47] VITALS: BP 133/61
[2020-10-22] MEDS: ACETAMINOPHEN 325 MG TABLET PO PRN ×2 (02:20→17:42)
--- NOTE | 2020-10-22 02:42 | NUR ---
0220h tylenol 650 mg prn given to pt for leg pain. Pt tolerated it well. Safety and comfort provided. Will continue to monitor.
[2020-10-22] MEDS: IV NS 1000 ML 1,000 ML IV PRN ×2 (03:00→18:22)
[2020-10-22 04:34] VITALS: BP 124/66
--- NOTE | 2020-10-22 05:44 | NUR ---
PT SLEPT INTERMITTENTLY. PT IN NO ACUTE DISTRESS. IV INTACT. SAFETY AND COMFORT PROVIDED. PT TURNED AND REPOSITIONED. SAFETY AND COMFORT PROVIDED. WILL ENDORSE TO INCOMING NURSE FOR CONTINUITY OF CARE.
[2020-10-22 06:03] LABS: HEMATOCRIT 36.2 % (31.2-41.9); MEAN CORPUSCULAR HEMOGLOBIN 29.5 uug (24.7-32.8); MEAN CORPUSCULAR VOLUME 88.4 fL (75.5-95.3); PLATELET COUNT (AUTO) 104 K/uL (179-408)
[2020-10-22] MEDS: PANTOPRAZOLE SODIUM 40 MG TABLET.DR PO SCH (06:03)
[2020-10-22] MEDS: LEVOTHYROXINE SODIUM 25 MCG TABLET PO SCH (06:03)
[2020-10-22 07:25] LABS: BILIRUBIN,TOTAL 0.6 mg/dL (0.2-1.0); CREATININE 1.2 mg/dL (0.6-1.3); MAGNESIUM 2.1 mg/dL (1.8-2.4); PHOSPHOROUS 4.5 mg/dL (2.5-4.9); POTASSIUM 3.8 mmol/L (3.5-5.1)
--- NOTE | 2020-10-22 07:30 | NUR ---
Patient is alter/orientedx4, able to make needs known. BM noted in the am. Kept call light within reach. No distress noted. IV intact and infusing well at 70cc/her Addendum: 10/22/20 at 0900 by May REDD VAZQUEZ IV running at 70cc/hr. No distress identified. Will continue to monitor for any changes.
[2020-10-22] MEDS: MULTIVITAMINS,THERAPEUTIC TABLET PO SCH (08:17)
[2020-10-22] MEDS: MIRALAX 17 GM POWD.PACK PO PRN (08:25)
[2020-10-22] MEDS: TRAMADOL HCL 50 MG TABLET PO PRN (11:49)
[2020-10-22 11:55] VITALS: BP 127/67
[2020-10-22] MEDS ORDERED: VANCOMYCIN IV 1,000 MG in IV DEXTROSE 5% 250 ML IV SCH (13:00)
[2020-10-22 16:00] VITALS: BP 163/76
[2020-10-22 17:25] LABS: *BILIRUBIN,URIN NEGATIVE (NEGATIVE); *BLOOD, URINE 2+ (NEGATIVE); *COLOR,URINE YELLOW (YELLOW); *KETONES,URINE NEGATIVE (NEGATIVE); *UROBILINOGEN,URINE 0.2 E.U./dl (NORMAL); LEUKOCYTE ESTERASE ,URINE NEGATIVE (NEGATIVE); NITRITE, URINE NEGATIVE (NEGATIVE); PH,URINE 5.5 (5.0-8.0); UGLUCOSE NEGATIVE (NEGATIVE)
[2020-10-22 17:48] LABS: *CLARITY,URINE SLIGHTLY HAZY (CLEAR); BACTERIA,URINE FEW /HPF (NONE SEEN); SQUAMOUS EPITHELIAL CELL,UR FEW /HPF (NONE SEEN)
[2020-10-22 18:25] LABS: LACTATE DEHYDROGENASE 209 U/L (81-234)
--- NOTE | 2020-10-22 19:12 | NUR ---
Facilitated UA. reported to Dr. José patient has 550cc output using in and out. APain medication given prn as ordered. All needs attended. Deu meds given. Denies other discomfort. Patient is for MRI, will obtain consent. Endorse to the next shift.
[2020-10-22] MEDS: ATORVASTATIN 10 MG TABLET PO SCH (20:14)
[2020-10-22] MEDS: MORPHINE SULFATE 2 MG/1 ML DISP.SYRIN IM PRN (23:12)
[2020-10-23] MEDS: TRAMADOL HCL 50 MG TABLET PO PRN (02:55)
[2020-10-23] MEDS ORDERED: ALBUTEROL SULFATE 1.25 MG/3 ML NEBU NEB PRN (05:00)
[2020-10-23] MEDS: MORPHINE SULFATE 2 MG/1 ML DISP.SYRIN IM PRN ×5 (05:13→22:55)
[2020-10-23 05:28] LABS: *RHEUMATOID FACTOR SCREEN NEGATIVE (NEGATIVE)
--- NOTE | 2020-10-23 05:58 | NUR ---
Pt slept intermittently throughout the night. Denies SOB or chest pain. C/o lower back pain that was relieved with Morphine and Ultram. Supposed to have MRI of abdomen and MRCP today but the test has not been scheduled yet. Pt requested that she be NPO so that if they can do the procedure early, she would be ready. No distress noted. Safety and comfort provided. No other issues or concerns at this time, will endorse to day shift.
[2020-10-23 06:04] LABS: HEMATOCRIT 35.7 % (31.2-41.9); MEAN CORPUSCULAR HEMOGLOBIN 29.5 uug (24.7-32.8); MEAN CORPUSCULAR VOLUME 88.6 fL (75.5-95.3); PLATELET COUNT (AUTO) 115 K/uL (179-408)
[2020-10-23] MEDS: LEVOTHYROXINE SODIUM 25 MCG TABLET PO SCH (06:25)
[2020-10-23] MEDS: PANTOPRAZOLE SODIUM 40 MG TABLET.DR PO SCH (06:25)
[2020-10-23] MEDS ORDERED: ALBUTEROL SULFATE 8 GM HFA.AER.AD IH PRN (06:30)
[2020-10-23] MEDS ORDERED: ALBUTEROL SULFATE 2.5 MG/3 ML NEBU NEB PRN (07:15)
[2020-10-23 07:17] LABS: PHOSPHOROUS 3.8 mg/dL (2.5-4.9); POTASSIUM 3.3 mmol/L (3.5-5.1)
[2020-10-23] MEDS: MULTIVITAMINS,THERAPEUTIC TABLET PO SCH (09:00)
[2020-10-23] MEDS ORDERED: POTASSIUM CHLORIDE 20 MEQ TAB.PRT.SR PO ONE (09:30)
[2020-10-23] MEDS: IV NS 1000 ML 1,000 ML IV PRN (09:41)
[2020-10-23] MEDS: POTASSIUM CHLORIDE 50 ML IV SCH ×2 (10:14→14:57)
[2020-10-23 11:43] VITALS: BP 105/68
--- NOTE | 2020-10-23 12:00 | NUR ---
Patient transported to [facility] for MRI and MRCP procedure.
--- NOTE | 2020-10-23 13:55 | NUR ---
Patient returned from MRI/ MRCP procedure. BP 145/85 HR 86. Patient not in acute distress. Will continue to monitor.
[2020-10-23 15:57] VITALS: BP 113/67
--- NOTE | 2020-10-23 18:37 | NUR ---
Patient resting in bed. AOx4. On room air. No signs of acute distress. Patient complains of pain, Morphine IV PRN as ordered. Patient tolerated well. Compliant with medications and care. Safety measures provided. Needs anticipated and met. Call light within reach. Bed alarm on. Will endorse to incoming shift for continuity of care.
--- NOTE | 2020-10-23 19:30 | NUR ---
RECEIVED PT AWAKE, ALERT AND ORIENTEDX4. PT IN NO ACUTE DISTRESS. IV INTACT. SAFETY AND COMFORT PROVIDED. WILL CONTINUE TO MONITOR.
[2020-10-23] MEDS: ATORVASTATIN 10 MG TABLET PO SCH (20:37)
[2020-10-23 20:40] VITALS: BP 131/73
[2020-10-23] MEDS: CEFAZOLIN 1 G in IV DEXTROSE 5% 50 ML IV SCH (21:15)
--- NOTE | 2020-10-23 22:35 | NUR ---
HANDS OFF REPORT GIVEN TO KHAI VAZQUEZ.
--- NOTE | 2020-10-23 22:58 | NUR ---
2255H MORPHINE PRN GIVEN FOR PT FOR LOWER BACK PAIN. PT TOLERATED IT WELL. WILL CONTINUE TO MONITOR.
[2020-10-24 04:10] VITALS: BP 168/69
[2020-10-24] MEDS: MORPHINE SULFATE 2 MG/1 ML DISP.SYRIN IM PRN ×2 (04:26→06:23)
--- NOTE | 2020-10-24 05:00 | NUR ---
AT 0426H MORPHINE PRN GIVEN FOR PAIN. PT TOLERATED IT WELL.
[2020-10-24] MEDS: IV NS 1000 ML 1,000 ML IV PRN (05:03)
[2020-10-24] MEDS: CEFAZOLIN 1 G in IV DEXTROSE 5% 50 ML IV SCH ×2 (05:30→13:19)
[2020-10-24 06:18] LABS: HEMATOCRIT 36.8 % (31.2-41.9); MEAN CORPUSCULAR HEMOGLOBIN 29.9 uug (24.7-32.8); MEAN CORPUSCULAR VOLUME 89.1 fL (75.5-95.3); PLATELET COUNT (AUTO) 131 K/uL (179-408)
[2020-10-24] MEDS: LEVOTHYROXINE SODIUM 25 MCG TABLET PO SCH (06:22)
[2020-10-24] MEDS: PANTOPRAZOLE SODIUM 40 MG TABLET.DR PO SCH (06:22)
[2020-10-24 06:30] VITALS: BP 135/58
[2020-10-24 06:31] LABS: POTASSIUM 3.2 mmol/L (3.5-5.1)
--- NOTE | 2020-10-24 06:50 | NUR ---
PT SLEPT INTERMITTENTLY. PRESCRIBED MEDICATION GIVEN AND PT TOLERATED IT WELL. SAFETY AND COMFORT PROVIDED. WILL ENDORSE TO INCOMING NURSE FOR CONTINUITY OF CARE.
[2020-10-24] MEDS: MULTIVITAMINS,THERAPEUTIC TABLET PO SCH (08:04)
[2020-10-24 08:06] LABS: CARBOHYDRATE ANTIGEN, 19-9 14 U/mL (0-35)
[2020-10-24] MEDS ORDERED: ENSURE ENLIVE (VAN) 240 ML LIQUID PO SCH (09:00)
[2020-10-24] MEDS ORDERED: POTASSIUM CHLORIDE 20 MEQ TAB.PRT.SR PO ONE (09:30)
[2020-10-24 09:53] LABS: *ANTI-SCLERODERMA-70 AB <0.2 AI (0.0-0.9); *SJOGREN'S ANTI-SS-A <0.2 AI (0.0-0.9); *SJOGREN'S ANTI-SS-B <0.2 AI (0.0-0.9); *SMITH ANTIBODIES <0.2 AI (0.0-0.9); ANTI-DNA(DS) AB, QN 1 IU/mL (0-9)
[2020-10-24] MEDS ORDERED: APIXABAN 5 MG TABLET PO SCH (11:00)
[2020-10-24] MEDS ORDERED: LOSARTAN POTASSIUM 50 MG TABLET PO SCH (11:00)
[2020-10-24 11:06] LABS: HEPATITIS B SURFACE AG Negative (Negative)
[2020-10-24] MEDS: ACIDOPHILUS/BULGARICUS CHEW TAB PO SCH ×2 (11:08→13:48)
[2020-10-24 11:26] VITALS: BP 153/62
[2020-10-24] MEDS ORDERED: PANT40TA2 PO (13:23)
[2020-10-24] MEDS ORDERED: ATOR10TA PO (13:23)
[2020-10-24] MEDS ORDERED: CEPH500C2 PO (13:23)
[2020-10-24] MEDS: TRAMADOL HCL 50 MG TABLET PO PRN (15:16)
[2020-10-24 15:20] VITALS: BP 158/76
--- NOTE | 2020-10-24 17:13 | NUR ---
dc orders received noted and carried out.dc heplock per md orders,dc instruction and education given to the pt,and her daughter.pt left the facility via ambulances in stable condition
[2020-10-25 05:06] LABS: HEPATITIS A AB, IgM Negative (Negative); HEPATITIS A AB, TOTAL Negative (Negative); HEPATITIS B SURFACE AG Negative (Negative)
[2020-10-25] MEDS ORDERED: FOLIC ACID 1 MG TABLET PO SCH (09:00)
== END 2020-10-24 17:21 | DRG 602 ==
LOC: ER 15:24 → TELE3 21:51 → MEDSURG3 10-20 15:42
PROVIDERS: ADMIT Internal Medicine; ATTEND Nurse Practitioner Acute Care
DX: L03.116 Cellulitis of left lower limb (principal); N17.0 Acute kidney failure with tubular necrosis; D68.59 Other primary thrombophilia; I48.20 Chronic atrial fibrillation, unspecified; N13.30 Unspecified hydronephrosis; I11.0 Hypertensive heart disease with heart failure; I50.9 Heart failure, unspecified; D69.6 Thrombocytopenia, unspecified; E03.9 Hypothyroidism, unspecified; E78.5 Hyperlipidemia, unspecified; E87.6 Hypokalemia; J45.909 Unspecified asthma, uncomplicated; Z20.822 Contact with and (suspected) exposure to COVID-19; K21.9 Gastro-esophageal reflux disease without esophagitis; K44.9 Diaphragmatic hernia without obstruction or gangrene; Z87.891 Personal history of nicotine dependence; Z90.49 Acquired absence of other specified parts of digestive tract; M19.90 Unspecified osteoarthritis, unspecified site; Z74.09 Other reduced mobility; I73.9 Peripheral vascular disease, unspecified; R73.03 Prediabetes; K57.90 Diverticulosis of intestine, part unspecified, without perforation or abscess without bleeding; Q64.39 Other atresia and stenosis of urethra and bladder neck; I70.8 Atherosclerosis of other arteries; Z86.19 Personal history of other infectious and parasitic diseases; D73.89 Other diseases of spleen
CPT/HCPCS: 36415; 71045; 73590; 73700; 74018; 74181; 76881; 82747; 83605; 83615; 83735; 84100; 84443; 85014; 85025; 86038; 86301; 86430; 86706; 86708; 86709; 86803; 87086; 87340; 87806; 97161; A4663; A6209; C1758; G0378; J0690; J1885; J2270; J2405; J2543; J3370; J3480; J7030; J7050; J7060; Q9967

== ENCOUNTER 2021-03-10 19:17 | Emergency (ER) | payer MEDICARE, OTHER ==
[~2021-03-10] VITALS: Ht 167.6 cm; Wt 75.7 kg
[~2021-03-10 19:17] MED LIST changes: -AMLO10TA59 PO; +ATOR10TA PO; -ATOR40TA PO; -ATROPINE PO; +BACI1TAB3 PO; -CIPR500T5 PO; -DIPHENOXYLATE PO; -HYDR-4384 PO; +LOSA100T31 PO; -SPIR25TA6 PO; -VITAMIN D2 PO
--- NOTE | 2021-03-10 20:33 | NUR ---
No beds available in the ER. Placed in hallway.
[2021-03-10] MEDS ORDERED: CLONIDINE HCL 0.1 MG TABLET PO ONE (21:45)
[2021-03-10] MEDS ORDERED: CLONIDINE HCL 0.1 MG TABLET ONE (22:11)
[2021-03-10 22:14] LABS: HEMATOCRIT 42.1 % (31.2-41.9); MEAN CORPUSCULAR VOLUME 85.9 fL (75.5-95.3); PLATELET COUNT (AUTO) 104 K/uL (179-408)
[2021-03-10 22:18] LABS: CREATININE 1.1 mg/dL (0.6-1.3)
[2021-03-10] MEDS ORDERED: CLON0.1T PO (22:43)
--- NOTE | 2021-03-10 23:05 | NUR ---
.Called [facility] ambulance ETA is 202mins
--- NOTE | 2021-03-10 23:07 | NUR ---
Called [facility] , spoke to Joselo and gave him SBAR.
--- NOTE | 2021-03-10 23:29 | NUR ---
Gave SBAR report [facility] ambulance unit 225.
--- NOTE | 2021-03-10 23:34 | NUR ---
Patient discharged to [facility] assisted living via [facility] ambulance in stable condition. Written and verbal after care instructions given. Patient verbalizes understanding of instructions. Stressed follow up or return to ER for worsening s/s.
[2021-03-10 23:47] VITALS: BP 141/75
== END 2021-03-10 23:48 ==
LOC: ER 19:19
DX: I16.9 Hypertensive crisis, unspecified (principal); I49.1 Atrial premature depolarization; E03.9 Hypothyroidism, unspecified; E11.51 Type 2 diabetes mellitus with diabetic peripheral angiopathy without gangrene; Z95.820 Peripheral vascular angioplasty status with implants and grafts; F17.200 Nicotine dependence, unspecified, uncomplicated; Z79.01 Long term (current) use of anticoagulants; Z79.899 Other long term (current) drug therapy
CPT/HCPCS: 36415; 83735; 85025; 93005; A4663

== ENCOUNTER 2021-03-31 09:08 | Emergency (ER) | payer MEDICARE, OTHER ==
[~2021-03-31] VITALS: Ht 167.6 cm; Wt 75.7 kg
[~2021-03-31 09:08] MED LIST changes: +CLON0.1T PO
--- NOTE | 2021-03-31 09:40 | NUR ---
Dr Rodriguez at the bedside for MSE.
--- NOTE | 2021-03-31 09:57 | NUR ---
Pt C/O lightheadedness, Dr Rodriguez made aware.
--- NOTE | 2021-03-31 10:08 | NUR ---
Pt out Er for CT scan. Dr Rodriguez speaking w/ pt's daughter regarding plan of care.
[2021-03-31 10:10] LABS: HEMATOCRIT 40.2 % (31.2-41.9); MEAN CORPUSCULAR HEMOGLOBIN 28.7 uug (24.7-32.8); MEAN CORPUSCULAR VOLUME 87.1 fL (75.5-95.3); PLATELET COUNT (AUTO) 91 K/uL (179-408)
[2021-03-31 10:21] LABS: CREATININE 1.3 mg/dL (0.6-1.3); POTASSIUM 3.8 mmol/L (3.5-5.1)
--- NOTE | 2021-03-31 10:33 | NUR ---
Pt back from Ct scan, denies dizziness at this time.
[2021-03-31 10:34] LABS: BILIRUBIN,TOTAL 0.6 mg/dL (0.2-1.0); TOTAL PROTEIN, SERUM 6.4 g/dL (6.4-8.2)
[2021-03-31 11:00] LABS: THYROID STIMULATING HORMONE 1.65 mIU/mL (0.358-3.740)
[2021-03-31 11:30] LABS: EOSINOPHILS % (MANUAL) 1 % (0-8); LYMPHOCYTES % (MANUAL) 26 % (20-40); MONOCYTES % (MANUAL) 10 % (2-10); NEUTROPHILS % (MANUAL) 63 % (42-75)
--- NOTE | 2021-03-31 11:43 | NUR ---
IV removed. Catheter intact and site benign. Pressure and 4x4 gauze applied to site. No bleeding noted.
[2021-03-31 11:44] VITALS: BP 131/67
--- NOTE | 2021-03-31 11:44 | NUR ---
Patient discharged to home in stable condition. Written and verbal after care instructions given. Patient and pt's daughter verbalize understanding of instructions. Stressed follow up or return to ER for worsening s/s. Pt assissted via wheelchair to daughter's car.
== END 2021-03-31 11:45 ==
LOC: ER 09:08
DX: I10 Essential (primary) hypertension (principal); R42 Dizziness and giddiness; I25.2 Old myocardial infarction; J44.9 Chronic obstructive pulmonary disease, unspecified; E03.9 Hypothyroidism, unspecified; E78.5 Hyperlipidemia, unspecified; E11.51 Type 2 diabetes mellitus with diabetic peripheral angiopathy without gangrene; I48.91 Unspecified atrial fibrillation; Z79.01 Long term (current) use of anticoagulants; Z79.899 Other long term (current) drug therapy; F17.200 Nicotine dependence, unspecified, uncomplicated
CPT/HCPCS: 36415; 70030-TC; 70450; 71045; 84443; 85025; 93005; A4663

== ENCOUNTER 2022-02-17 11:16 | Inpatient (IN) | payer MEDICARE, OTHER ==
[~2022-02-17] VITALS: Ht 152.4 cm; Wt 87.5 kg
[~2022-02-17 11:16] MED LIST changes: -CEPH500C2 PO
[2022-02-17 11:58] LABS: HEMATOCRIT 42.3 % (31.2-41.9); MEAN CORPUSCULAR HEMOGLOBIN 29.4 uug (24.7-32.8); MEAN CORPUSCULAR VOLUME 85.9 fL (75.5-95.3); PLATELET COUNT (AUTO) 80 K/uL (179-408)
[2022-02-17] MEDS ORDERED: PANTOPRAZOLE SODIUM 40 MG VIAL IV ONE (12:00)
[2022-02-17] MEDS ORDERED: ONDANSETRON 4 MG/2 ML VIAL IV ONE ×2 (12:00→15:15)
[2022-02-17] MEDS ORDERED: IV NS 1000 ML 1,000 ML IV ONE ×2 (12:00→13:30)
[2022-02-17] MEDS ORDERED: MORPHINE SULFATE 2 MG/1 ML DISP.SYRIN IV ONE (12:00)
[2022-02-17] MEDS ORDERED: ONDANSETRON 4 MG/2 ML VIAL ONE ×2 (12:05→15:18)
[2022-02-17] MEDS ORDERED: PANTOPRAZOLE SODIUM 40 MG VIAL ONE (12:06)
[2022-02-17] MEDS ORDERED: MORPHINE SULFATE 2 MG/1 ML DISP.SYRIN ONE (12:06)
--- NOTE | 2022-02-17 12:15 | NUR ---
Seen by Dr. Mari for MSE.
[2022-02-17 12:18] LABS: ALANINE AMINOTRANSFERASE 17 U/L (14-59); ALKALINE PHOSPHATASE 90 U/L (50-136); ASPARTATE AMINOTRANSFERASE 10 U/L (15-37); BILIRUBIN,DIRECT 0.2 mg/dL (0.0-0.2); BILIRUBIN,TOTAL 0.8 mg/dL (0.2-1.0); CARBON DIOXIDE 23 mmol/L (21-32); CHLORIDE 105 mmol/L (98-107); CREATININE 1.1 mg/dL (0.6-1.3); GLUCOSE 149 mg/dL (74-106); LIPASE 58 U/L (73-393); POTASSIUM 3.7 mmol/L (3.5-5.1); TOTAL PROTEIN, SERUM 6.8 g/dL (6.4-8.2); UREA NITROGEN, BLOOD 17 mg/dL (7-18)
--- NOTE | 2022-02-17 12:30 | NUR ---
MD explained risks and benefits of CT Abdomen/Pelvis with contrast, pt acknowledged and consented.
[2022-02-17] MEDS ORDERED: SWABABLE VALVE TRANSFER SET EA MC ONE (12:38)
[2022-02-17] MEDS ORDERED: IOHEXOL 300MG/ML 100 ML INFUS..BTL ONE (12:38)
[2022-02-17] MEDS ORDERED: IV NORMAL SALINE 250 ML IV ONE (12:38)
[2022-02-17] MEDS ORDERED: CARVEDILOL 12.5 MG TABLET ONE (12:38)
[2022-02-17] MEDS ORDERED: CARVEDILOL 3.125 MG TABLET PO ONE (12:45)
[2022-02-17 13:53] LABS: *BILIRUBIN,URIN NEGATIVE (NEGATIVE); *BLOOD, URINE 1+ (NEGATIVE); *CLARITY,URINE CLEAR (CLEAR); *COLOR,URINE YELLOW (YELLOW); *KETONES,URINE NEGATIVE (NEGATIVE); *UROBILINOGEN,URINE 0.2 E.U./dl (NORMAL); LEUKOCYTE ESTERASE ,URINE TRACE (NEGATIVE); NITRITE, URINE NEGATIVE (NEGATIVE); PH,URINE 5.5 (5.0-8.0); UGLUCOSE NEGATIVE (NEGATIVE)
[2022-02-17 14:20] LABS: WBC,URINE 0-3 /HPF (0-3)
[2022-02-17 14:21] LABS: BACTERIA,URINE FEW /HPF (NONE SEEN); SQUAMOUS EPITHELIAL CELL,UR FEW /HPF (NONE SEEN)
[2022-02-17] MEDS ORDERED: CEFTRIAXONE 1 G in IV DEXTROSE 5% 50 ML IV ONE (14:30)
[2022-02-17 14:34] LABS: EOSINOPHILS % (MANUAL) 1 % (0-8); LYMPHOCYTES % (MANUAL) 5 % (20-40); MONOCYTES % (MANUAL) 5 % (2-10); NEUTROPHILS % (MANUAL) 89 % (42-75)
[2022-02-17] MEDS ORDERED: CEFTRIAXONE /D5W 50ML IVPB **ER PYXIS IV ONE (14:52)
--- NOTE | 2022-02-17 16:12 | NUR ---
Pt will be admitted under the care of Dr. Zazueta, with admitting diagnosis of nausea and vomiting. Level of care = Tele, room 301B.
--- NOTE | 2022-02-17 16:57 | NUR ---
Attempted NGT insertion 3x, pt cannot tolerate it. notified.
--- NOTE | 2022-02-17 17:32 | NUR ---
Report given to Edda VAZQUEZ.
--- NOTE | 2022-02-17 17:55 | NUR ---
Transported pt to Tele, Rm 301B. Received by Edda VAZQUEZ.
[2022-02-17] MEDS ORDERED: ACETAMINOPHEN 650 MG SUPP.RECT RC PRN (18:30)
[2022-02-17] MEDS ORDERED: MORPHINE SULFATE 2 MG/1 ML DISP.SYRIN IV PRN (18:30)
[2022-02-17] MEDS ORDERED: ONDANSETRON 4 MG/2 ML VIAL IV PRN (18:30)
[2022-02-17 18:59] VITALS: BP 141/43
--- NOTE | 2022-02-17 19:30 | NUR ---
Received 86 yr old female diagnosed with SBO, accelerated hypertension under Dr. Zazueta. AAOx3, hard of hearing. On room air. IV site on L AC 20 g intact and patent. On NPO as ordered. SR on Tele, in and out of Sinus Tachy with PVCs. Denies pain or discomfort. Pt is incontinent. Had watery stools. All needs attended. Safety precautions observed.
[2022-02-17 20:00] VITALS: BP 150/49
[2022-02-17] MEDS ORDERED: CLONIDINE-TTS 1 PATCH TD SCH (20:00)
[2022-02-17] MEDS: POTASSIUM CHLORIDE 20 MEQ in IV D5 1/2 NS 1000 ML 1,000 ML IV PRN (20:52)
[2022-02-17] MEDS: PIPERACILLIN SODIUM/TAZOBACTAM 3.375 G in IV DEXTROSE 5% 100 ML IV SCH (20:52)
[2022-02-17] MEDS: ENOXAPARIN SODIUM 40 MG/0.4 ML DISP.SYRIN SQ SCH ×2 (20:57→21:00)
[2022-02-17] MEDS ORDERED: ENOXAPARIN SODIUM 80 MG/0.8 ML DISP.SYRIN SQ SCH (21:00)
--- NOTE | 2022-02-17 21:30 | NUR ---
Pt refused Lovenox. Per pt, she wants to be on Eliquis because that's what her Cardio doctor ordered. Will endorse to incoming nurse.
[2022-02-17] MEDS ORDERED: PIPERACILLIN SODIUM/TAZOBACTAM 3.375 G in IV DEXTROSE 5% 50 ML IV SCH (22:00)
[2022-02-18] VITALS: BP 133/50
[2022-02-18 04:00] VITALS: BP 130/47
[2022-02-18] MEDS: PIPERACILLIN SODIUM/TAZOBACTAM 3.375 G in IV DEXTROSE 5% 100 ML IV SCH ×3 (04:45→20:35)
[2022-02-18 07:14] LABS: THYROID STIMULATING HORMONE 0.374 mIU/mL (0.358-3.740)
[2022-02-18 07:18] LABS: BILIRUBIN,TOTAL 0.6 mg/dL (0.2-1.0); CREATININE 1.1 mg/dL (0.6-1.3); MAGNESIUM 1.7 mg/dL (1.8-2.4); PHOSPHOROUS 3.4 mg/dL (2.5-4.9); POTASSIUM 3.4 mmol/L (3.5-5.1); TOTAL PROTEIN, SERUM 5.5 g/dL (6.4-8.2)
[2022-02-18 07:19] LABS: HEMATOCRIT 38.3 % (31.2-41.9); MEAN CORPUSCULAR HEMOGLOBIN 28.9 uug (24.7-32.8); MEAN CORPUSCULAR VOLUME 87.1 fL (75.5-95.3); PLATELET COUNT (AUTO) 69 K/uL (179-408)
[2022-02-18] MEDS ORDERED: MAGNESIUM SULFATE/D5W 100 ML IV SCH (08:00)
--- NOTE | 2022-02-18 08:30 | NUR ---
AWAKE ALERT AND ORIENTED BUT GETS EASILY ANXIOUS AND SCREAMS FOR NO REASON EVEN ATTEMPTING TO EXPLAIN SITUATIONS TO HER.REMAIN ON IVF ORDERED WITH NO S/S OF INFILTERATION AT THIS TIME.TELE IS SR AND ST AT TIMES PATIENT IS NOTHING BY MOUTH ORDERED CALL LIGHTS AND PERSONAL BELONGINGS PLACED WITHIN EASY REACH AT THIS TIME WILL CONTINUE TO OBSERVE.
[2022-02-18] MEDS: PANTOPRAZOLE SODIUM 40 MG VIAL IV SCH (08:42)
[2022-02-18] MEDS: POTASSIUM CHLORIDE 50 ML IV SCH ×3 (09:00→11:02)
[2022-02-18] MEDS ORDERED: DIATR MEGLU/DIATRIZOATE SODIUM 30 ML BOTTLE ONE (11:21)
[2022-02-18 11:34] VITALS: BP 143/57
--- NOTE | 2022-02-18 12:01 | NUR ---
PATIENT HAS 2 BAGS OF POTASSIUM ORDERED AND ONE BAG INFUSED BUT SOON THE SECOND BAG STARTED SHE STARTED TO SCREAM AND CRY STATED HAS TOO MUCH PAIN SO THE POTASSIUM STOPPED AT THIS TIME AND PHARMACY NOTIFIED AND THEY STATED WILL SEND ANOTHER 10 MEQ WITH LIDOCAINE
[2022-02-18] MEDS ORDERED: POTASSIUM CHLORIDE 10 MEQ, LIDOCAINE-MPF 1% 1 ML in IV DEXTROSE 5% 100 ML IV SCH (13:00)
--- NOTE | 2022-02-18 13:25 | NUR ---
DR TRIANA HERE TO SEE PATIENT WITH ORDER TO START HER ON CLEAR LIQUIDS DIET AND NOTED.
--- NOTE | 2022-02-18 15:12 | NUR ---
DR CASTANO HERE TO SEE AND EXAMINE PATIENT WITH NEW ORDERS AND NOTED.
[2022-02-18 15:27] VITALS: BP 112/73
[2022-02-18 15:47] LABS: HEMATOCRIT 41.1 % (31.2-41.9); MEAN CORPUSCULAR HEMOGLOBIN 28.4 uug (24.7-32.8); MEAN CORPUSCULAR VOLUME 88.3 fL (75.5-95.3); PLATELET COUNT (AUTO) 68 K/uL (179-408)
--- NOTE | 2022-02-18 18:00 | NUR ---
TOLERATED CLEAR LIQUIDS DIET ORDERED DENIES ABDOMINAL PAIN
[2022-02-18 20:00] VITALS: BP 168/70
[2022-02-18] MEDS: REMEDY ESSENTIAL ZINC PASTE 113 GM TOP SCH (20:36)
[2022-02-18] MEDS: ACETAMINOPHEN 325 MG TABLET PO PRN (20:40)
[2022-02-18] MEDS: ENALAPRILAT DIHYDRATE 1.25 MG/1 ML VIAL IV PRN (20:43)
--- NOTE | 2022-02-18 20:50 | NUR ---
Pt's temp was 99.7. Tylenol given. BP was 168/70. Vasotec given as ordered. Denies pain or discomfort. Will continue to monitor.
[2022-02-18] MEDS ORDERED: ENOXAPARIN SODIUM 40 MG/0.4 ML DISP.SYRIN SQ SCH (21:00)
[2022-02-18] MEDS: POTASSIUM CHLORIDE 20 MEQ in IV D5 1/2 NS 1000 ML 1,000 ML IV PRN (23:24)
[2022-02-19] VITALS: BP 106/64
[2022-02-19 04:00] VITALS: BP 124/78
--- NOTE | 2022-02-19 04:30 | NUR ---
Pt converted to controlled to uncontrolled Afib with Hr fluctuating between 95-125 per min. Kuldip CLOTH BEAMER notified. Per Kuldip to notify her if HR stays >120 for 15 min or more. Will continue to monitor.
[2022-02-19] MEDS: PIPERACILLIN SODIUM/TAZOBACTAM 3.375 G in IV DEXTROSE 5% 100 ML IV SCH ×3 (05:11→19:50)
--- NOTE | 2022-02-19 06:25 | NUR ---
Spoke with pt's daughter Ailin (POA), confirmed that code status is DNR. She said she will bring the POLST form today.
[2022-02-19 06:38] LABS: HEMATOCRIT 38.4 % (31.2-41.9); MEAN CORPUSCULAR HEMOGLOBIN 28.6 uug (24.7-32.8); MEAN CORPUSCULAR VOLUME 87.1 fL (75.5-95.3); PLATELET COUNT (AUTO) 72 K/uL (179-408)
[2022-02-19 07:06] LABS: CREATININE 1.2 mg/dL (0.6-1.3); PHOSPHOROUS 3.3 mg/dL (2.5-4.9); POTASSIUM 3.8 mmol/L (3.5-5.1)
--- NOTE | 2022-02-19 08:00 | NUR ---
RECEIVED IN BED AWAKE ALERT AND ORIENTED X3, DENIES PAIN OR SOB . ON RA SATURATING 96% WITH CONTINUOUS IVF WITH 20 KCL 70 MLS/HR RIGHT UPPER ARM MIDLINE INFUSING WELL. INCONTINENT OF STOOL AND URINE KEPT CLEAN AND APPLIED ZGUARD FOR VERY EXCORIATED PERIANAL AREAS. PATIENT REQUIRES MIN MOD ASSIST IN TURNING. TOLERATING FULL LIQUID DIET NO NAUSEA AND VOMITING
[2022-02-19 08:12] LABS: EOSINOPHILS % (MANUAL) 1 % (0-8); LYMPHOCYTES % (MANUAL) 27 % (20-40); MONOCYTES % (MANUAL) 14 % (2-10); NEUTROPHILS % (MANUAL) 58 % (42-75)
[2022-02-19] MEDS: PANTOPRAZOLE SODIUM 40 MG VIAL IV SCH (09:06)
[2022-02-19] MEDS: CARVEDILOL 12.5 MG TABLET PO SCH ×2 (09:06→16:56)
[2022-02-19] MEDS: APIXABAN 5 MG TABLET PO SCH ×2 (09:07→20:08)
[2022-02-19] MEDS: REMEDY ESSENTIAL ZINC PASTE 113 GM TOP SCH ×2 (09:08→21:43)
[2022-02-19 11:05] VITALS: BP 100/43
--- NOTE | 2022-02-19 12:30 | NUR ---
SEEN BY DR MCGILL STATUS CHANGE TO [facility]. PATIENT DENIES CHEST PAIN. STARTED ON IV ANTIBIOTIC NO ADVERSE REACTION NOTED
[2022-02-19 15:20] VITALS: BP 110/44
[2022-02-19] MEDS: ACETAMINOPHEN 325 MG TABLET PO PRN (16:29)
--- NOTE | 2022-02-19 17:40 | NUR ---
WOUND NURSE MADE AWARE OF PERIANAL REDNESS CONTINUE TX ORDERED. INCONTINENT OF STOOL AND URINE KEPT CLEAN AND DRY. TURN TO SIDES TOLERATED
--- NOTE | 2022-02-19 19:15 | NUR ---
patient received in bed awake, alert and oriented x3. denies pain and sob at this time. vital signs taken and noted WNL. patient saturating 95% on room air. no respiratory distress noted. patient is incontinent bowel and bladder kept clean, dry and tx provided for perianal redness. call light in reach and functional. encouraged patient to use call light for assistance.
--- NOTE | 2022-02-19 19:30 | NUR ---
Received Pt from Day shift. Pt is A&Ox3 and is cooperative. Pt on Rm Air. Assessed Pt's buttocks: skin is reddened. Tx was applied when changing Pt's diaper. Safety measures in check. Will continue to monitor.
[2022-02-19 22:59] VITALS: BP 98/48
[2022-02-20] MEDS: PIPERACILLIN SODIUM/TAZOBACTAM 3.375 G in IV DEXTROSE 5% 100 ML IV SCH ×2 (03:30→12:22)
[2022-02-20] MEDS ORDERED: PRAMOXIN/MINERAL OIL/ZNIC OINT 28.3 GM TUBE RC PRN (03:45)
[2022-02-20 04:00] VITALS: BP 153/69
[2022-02-20] MEDS ORDERED: SHARK LIVER OIL/PETROLAT OINT 60 GM TUBE RC PRN (05:45)
[2022-02-20] MEDS: ENALAPRILAT DIHYDRATE 1.25 MG/1 ML VIAL IV PRN ×2 (06:41→17:10)
[2022-02-20] MEDS: PANTOPRAZOLE SODIUM 40 MG VIAL IV SCH (09:03)
[2022-02-20] MEDS: REMEDY ESSENTIAL ZINC PASTE 113 GM TOP SCH (09:05)
[2022-02-20] MEDS: APIXABAN 5 MG TABLET PO SCH (09:09)
[2022-02-20] MEDS: CARVEDILOL 12.5 MG TABLET PO SCH ×2 (09:10→17:11)
[2022-02-20 11:40] VITALS: BP 134/85
[2022-02-20 15:46] VITALS: BP 184/82
[2022-02-20] MEDS ORDERED: ALBU8.5H8 INH (16:29)
[2022-02-20] MEDS ORDERED: PHEN57OI3 RC (16:29)
[2022-02-20] MEDS ORDERED: METR500T PO (16:29)
[2022-02-20] MEDS ORDERED: LEVO500T90 PO (16:29)
[2022-02-20] MEDS ORDERED: FLUT1BLS IH (16:30)
[2022-02-20 17:11] VITALS: BP 184/82
== END 2022-02-20 19:30 | DRG 372 ==
LOC: ER 11:16 → TELE3 16:12 → MEDSURG3 02-19 08:53
PROVIDERS: ADMIT Internal Medicine; ATTEND Internal Medicine
PROC: 05H533Z Insertion of Infusion Device into Right Subclavian Vein, Percutaneous Approach (ICD-10-PCS; principal; 2022-02-19)
PROC: B546ZZA Ultrasonography of Right Subclavian Vein, Guidance (ICD-10-PCS; 2022-02-19)
DX: A04.9 Bacterial intestinal infection, unspecified (principal); D68.59 Other primary thrombophilia; K56.600 Partial intestinal obstruction, unspecified as to cause; I50.32 Chronic diastolic (congestive) heart failure; I48.0 Paroxysmal atrial fibrillation; Z79.01 Long term (current) use of anticoagulants; D69.6 Thrombocytopenia, unspecified; E83.42 Hypomagnesemia; E78.5 Hyperlipidemia, unspecified; E86.0 Dehydration; E87.6 Hypokalemia; E11.51 Type 2 diabetes mellitus with diabetic peripheral angiopathy without gangrene; Z20.822 Contact with and (suspected) exposure to COVID-19; Z66 Do not resuscitate; Z87.891 Personal history of nicotine dependence; Z90.49 Acquired absence of other specified parts of digestive tract; E03.9 Hypothyroidism, unspecified; M19.90 Unspecified osteoarthritis, unspecified site; J44.9 Chronic obstructive pulmonary disease, unspecified; Z74.09 Other reduced mobility; E66.9 Obesity, unspecified; Z68.37 Body mass index [BMI] 37.0-37.9, adult; K52.9 Noninfective gastroenteritis and colitis, unspecified; I11.0 Hypertensive heart disease with heart failure; Z86.19 Personal history of other infectious and parasitic diseases; Z87.11 Personal history of peptic ulcer disease; Z95.820 Peripheral vascular angioplasty status with implants and grafts
CPT/HCPCS: 36415; 70030-TC; 71045; 74250; 83550; 83605; 83690; 83735; 84100; 84443; 84484; 85025; 87040; 93005; 93307; A4663; A9150; C9113; G0378; J0696; J1650; J2001; J2270; J2405; J2543; J3475; J3480; J3490; J7040; Q9963; Q9967

== ENCOUNTER 2022-06-18 13:30 | Inpatient (IN) | payer MEDICARE, OTHER ==
[~2022-06-18] VITALS: Ht 167.6 cm; Wt 79.8 kg
[~2022-06-18 13:30] MED LIST changes: -ACET-2605 PO; +ALBU8.5H8 INH; -CLON0.1T PO; +FLUT1BLS IH; +LEVO500T90 PO; +METR500T PO; +PHEN57OI3 RC
--- NOTE | 2022-06-18 13:58 | NUR ---
Pt seen by . Safety measures in place. Will continue to monitor.
[2022-06-18] MEDS ORDERED: VANCOMYCIN IV 1,000 MG in IV DEXTROSE 5% 250 ML IV ONE (14:15)
[2022-06-18] MEDS ORDERED: IV NORMAL SALINE 1000 ML BAG IV ONE (14:15)
[2022-06-18] MEDS ORDERED: PIPERACILLIN SODIUM/TAZOBACTAM 3.375 G in IV DEXTROSE 5% 50 ML IV ONE (14:15)
[2022-06-18 14:20] LABS: HEMATOCRIT 39.4 % (31.2-41.9); MEAN CORPUSCULAR HEMOGLOBIN 27.9 uug (24.7-32.8); MEAN CORPUSCULAR VOLUME 86.8 fL (75.5-95.3); PLATELET COUNT (AUTO) 99 K/uL (179-408)
[2022-06-18] MEDS ORDERED: PIPERACILLIN/TAZOBACTAM/D5W 50 ML IV ONE (14:27)
[2022-06-18] MEDS ORDERED: VANCOMYCIN IV 200 ML ONE (14:27)
[2022-06-18] MEDS ORDERED: ACETAMINOPHEN 325 MG TABLET ONE ×2 (15:10→19:36)
[2022-06-18] MEDS ORDERED: ONDANSETRON 4 MG/2 ML VIAL ONE (15:10)
[2022-06-18 15:11] LABS: CARBON DIOXIDE 27 mmol/L (21-32); CHLORIDE 102 mmol/L (98-107); CREATININE 1.3 mg/dL (0.6-1.3); GLUCOSE 135 mg/dL (74-106); POTASSIUM 3.9 mmol/L (3.5-5.1); UREA NITROGEN, BLOOD 14 mg/dL (7-18)
[2022-06-18] MEDS ORDERED: ONDANSETRON 4 MG/2 ML VIAL IV ONE (15:15)
[2022-06-18] MEDS ORDERED: ACETAMINOPHEN 325 MG TABLET PO ONE ×2 (15:15→20:30)
--- NOTE | 2022-06-18 15:34 | NUR ---
Pt tolerating antibiotics well. Safety measures in place. Will continue to monitor.
[2022-06-18 16:05] LABS: ALANINE AMINOTRANSFERASE 18 U/L (14-59); ALKALINE PHOSPHATASE 79 U/L (50-136); ASPARTATE AMINOTRANSFERASE 22 U/L (15-37); BILIRUBIN,DIRECT 0.2 mg/dL (0.0-0.2); BILIRUBIN,TOTAL 0.6 mg/dL (0.2-1.0)
[2022-06-18] MEDS ORDERED: ACET-2605 PO (16:56)
[2022-06-18] MEDS ORDERED: TRIA60LO7 TOP (16:57)
[2022-06-18] MEDS ORDERED: CLON0.1T PO (16:57)
[2022-06-18] MEDS ORDERED: SULF1TAB48 PO (16:57)
[2022-06-18] MEDS ORDERED: DIPH1TAB PO (16:57)
[2022-06-18] MEDS ORDERED: CEPH500T PO (16:57)
[2022-06-18] MEDS ORDERED: GUAI177L6 PO (16:57)
[2022-06-18] MEDS ORDERED: NYST5ORA (16:57)
--- NOTE | 2022-06-18 18:32 | NUR ---
Gave report to Efraín. Safety measures in place. Will continue to monitor.
--- NOTE | 2022-06-18 19:05 | NUR ---
Received report from GEORGE Thomas.
--- NOTE | 2022-06-18 19:10 | NUR ---
Daughter at bedside.
--- NOTE | 2022-06-18 19:38 | NUR ---
Called [facility] to inform GEORGE Austin that she will be transfered to [facility] at 2030.
[2022-06-18] MEDS ORDERED: ONDANSETRON 4 MG/2 ML VIAL IV PRN (19:45)
[2022-06-18] MEDS ORDERED: MORPHINE SULFATE 2 MG/1 ML DISP.SYRIN IV PRN (19:45)
[2022-06-18 19:56] LABS: *BILIRUBIN,URIN NEGATIVE (NEGATIVE); *BLOOD, URINE NEGATIVE (NEGATIVE); *CLARITY,URINE SLIGHTLY CLOUDY (CLEAR); *COLOR,URINE YELLOW (YELLOW); *KETONES,URINE TRACE (NEGATIVE); *UROBILINOGEN,URINE 0.2 E.U./dl (NORMAL); LEUKOCYTE ESTERASE ,URINE NEGATIVE (NEGATIVE); NITRITE, URINE NEGATIVE (NEGATIVE); PH,URINE 5.5 (5.0-8.0); UGLUCOSE NEGATIVE (NEGATIVE)
--- NOTE | 2022-06-18 20:30 | NUR ---
Pt. admitted to M/S 312, under care of Dr. Lieberman Belongs List completed GEORGE Austin aware of patients arrival to unit.
--- NOTE | 2022-06-18 20:45 | NUR ---
Received patient from ER via gurney, awake alert and oriented x3 not in respiratory distress. Dx: cellulitis, CHF. IV access to LAC intact and patent. Admission care rendered, oriented to room/BR/TV and call light. Care plan initiated. Needs assessed and attended to.
[2022-06-18] MEDS: DOCUSATE SODIUM 100 MG CAPSULE PO SCH ×2 (21:00→21:31)
[2022-06-18] MEDS ORDERED: PIPERACILLIN/TAZOBACTAM/D5W 100 ML IV ONE (21:21)
[2022-06-18] MEDS: PIPERACILLIN SODIUM/TAZOBACTAM 3.375 G in IV DEXTROSE 5% 50 ML IV SCH (21:34)
[2022-06-18] MEDS ORDERED: PIPERACILLIN SODIUM/TAZOBACTAM 3.375 G in IV DEXTROSE 5% 50 ML IV SCH (22:00)
[2022-06-18 22:14] VITALS: BP 106/48
[2022-06-18] MEDS: ACETAMINOPHEN 325 MG TABLET PO PRN (23:54)
[2022-06-19] MEDS: PIPERACILLIN SODIUM/TAZOBACTAM 3.375 G in IV DEXTROSE 5% 50 ML IV SCH (02:59)
[2022-06-19 04:38] VITALS: BP 125/43
[2022-06-19 06:39] VITALS: BP 125/43
[2022-06-19] MEDS: PANTOPRAZOLE SODIUM 40 MG TABLET.DR PO SCH ×3 (06:44→16:11)
[2022-06-19 07:01] LABS: HEMATOCRIT 34.9 % (31.2-41.9); MEAN CORPUSCULAR HEMOGLOBIN 28.4 uug (24.7-32.8); MEAN CORPUSCULAR VOLUME 87.1 fL (75.5-95.3); PLATELET COUNT (AUTO) 83 K/uL (179-408)
[2022-06-19] MEDS: LEVOTHYROXINE SODIUM 25 MCG TABLET PO SCH (07:17)
[2022-06-19 07:53] LABS: ALANINE AMINOTRANSFERASE 24 U/L (14-59); ALKALINE PHOSPHATASE 66 U/L (50-136); ASPARTATE AMINOTRANSFERASE 28 U/L (15-37); BILIRUBIN,TOTAL 0.9 mg/dL (0.2-1.0); CARBON DIOXIDE 27 mmol/L (21-32); CHLORIDE 104 mmol/L (98-107); CHOLESTEROL 96 mg/dL (<200); CREATININE 1.5 mg/dL (0.6-1.3); GLUCOSE 87 mg/dL (74-106); HDL CHOLESTEROL 47 mg/dL (40-60); MAGNESIUM 1.7 mg/dL (1.8-2.4); POTASSIUM 4.2 mmol/L (3.5-5.1); TOTAL PROTEIN, SERUM 5.9 g/dL (6.4-8.2); TRIGLYCERIDES 52 MG/DL (30-150); UREA NITROGEN, BLOOD 16 mg/dL (7-18)
[2022-06-19 08:00] VITALS: BP 118/45
[2022-06-19] MEDS: PIPERACILLIN SODIUM/TAZOBACTAM 3.375 G in IV DEXTROSE 5% 100 ML IV SCH ×2 (08:56→16:14)
[2022-06-19] MEDS ORDERED: FUROSEMIDE 20 MG/2 ML VIAL IV SCH (09:00)
[2022-06-19 09:29] LABS: THYROID STIMULATING HORMONE 0.586 mIU/mL (0.358-3.740)
[2022-06-19] MEDS: LOSARTAN POTASSIUM 50 MG TABLET PO SCH ×2 (09:36→20:24)
[2022-06-19] MEDS: CARVEDILOL 12.5 MG TABLET PO SCH ×2 (09:37→18:32)
[2022-06-19] MEDS: APIXABAN 2.5 MG TABLET PO SCH ×2 (09:38→20:31)
[2022-06-19] MEDS ORDERED: VANCOMYCIN IV 750 MG in IV DEXTROSE 5% 250 ML IV SCH (11:00)
[2022-06-19] MEDS ORDERED: MAGNESIUM OXIDE 400 MG TABLET PO ONE (11:00)
[2022-06-19 11:38] VITALS: BP 93/48
[2022-06-19] MEDS ORDERED: ATOR40TA PO (12:04)
--- NOTE | 2022-06-19 12:52 | NUR ---
0730-REC'D PATIENT IN HER BED, AWAKE. A/OX4, VERBALIZES NEEDS AND FOLLOWS DIRECTIONS. PATIENT DENIES ANY PAIN OR DISCOMFORT. ON R/A AND GRAHAM. WELL. NO COUGH/SOB/RESP. DISTRESS NOTED. PERIPHERAL TO LT AC NOTED WITH SLIGHT BLEEDING TO SURROUNDING AREA, FLUSHING WELL. 0900-SCHEDULED MEDICATION ADMINISTERED ORDERED BY MD. ML PLACED TO ELENA G18" [id number] BY MD GLOVER AC PERIPHERAL PULLED OUT. PATIENT TOLERATED WELL ML INSERTION PROCEDURE, ASEPTIC TECH. APPLIED, PROC EXPLAINED PRIOR. 1000-PATIENT WAS VISITED BY HER DAUGHTER, NO UNUSUAL OBSERVATIONS. SAFETY MEASURES IN PLACE AND CALL LIGHT AT REACH.
--- NOTE | 2022-06-19 15:09 | NUR ---
1400-TREATMENT TO LL POSTERIOR LEG WOUND PROVIDED ORDERED. PATIENT GRAHAM. PROCEDURE WELL, NO C/O PAIN.
[2022-06-19 16:08] VITALS: BP 104/61
[2022-06-19 20:17] VITALS: BP 124/42
[2022-06-19] MEDS: DOCUSATE SODIUM 100 MG CAPSULE PO SCH ×2 (20:24→20:56)
[2022-06-19] MEDS: ACETAMINOPHEN 325 MG TABLET PO PRN (20:25)
--- NOTE | 2022-06-19 20:32 | NUR ---
platelet 86, notify Thanh SCHUSTER, ordered to hold elequis dose tonight.
[2022-06-19] MEDS: DOXYCYCLINE HYCLATE 100 MG TABLET PO SCH (22:15)
--- NOTE | 2022-06-19 22:30 | NUR ---
refused vibramycin abx, notify Antonina CAREER TECHNOLOGY TEACHER
--- NOTE | 2022-06-20 03:15 | NUR ---
Patient complaining of lower abdomen pain, patient has large bowel movement in this shift, did bladder scan, obtained 551 in the bladder, notify Sydney Keenan BILINGUAL RECRUITER with order of insert a brandt cath and send UA. Patient obtained 700cc of yellow color urine no odor no exudate noted, tolerate procedure well.
[2022-06-20 04:24] VITALS: BP 128/68
[2022-06-20] MEDS: LEVOTHYROXINE SODIUM 25 MCG TABLET PO SCH (06:07)
[2022-06-20 07:12] LABS: CARBON DIOXIDE 27 mmol/L (21-32); CHLORIDE 107 mmol/L (98-107); CREATININE 1.1 mg/dL (0.6-1.3); GLUCOSE 82 mg/dL (74-106); MAGNESIUM 1.9 mg/dL (1.8-2.4); POTASSIUM 4.1 mmol/L (3.5-5.1); UREA NITROGEN, BLOOD 12 mg/dL (7-18)
[2022-06-20] MEDS: CARVEDILOL 12.5 MG TABLET PO SCH ×3 (08:14→21:44)
[2022-06-20] MEDS: LOSARTAN POTASSIUM 50 MG TABLET PO SCH ×2 (08:14→21:43)
[2022-06-20] MEDS: DOXYCYCLINE HYCLATE 100 MG TABLET PO SCH ×2 (08:14→20:49)
[2022-06-20] MEDS: VANCOMYCIN IV 750 MG in IV DEXTROSE 5% 250 ML IV SCH (08:56)
[2022-06-20] MEDS ORDERED: APIXABAN 2.5 MG TABLET PO SCH ×2 (09:00→21:00)
--- NOTE | 2022-06-20 09:21 | NUR ---
left lower leg dressing change per md orders wound c/s send to lab
[2022-06-20] MEDS: APIXABAN 5 MG TABLET PO SCH ×2 (10:31→20:52)
[2022-06-20] MEDS: CEFEPIME HCL 1 G in IV DEXTROSE 5% 50 ML IV SCH ×2 (10:32→22:02)
[2022-06-20 11:56] VITALS: BP 133/67
[2022-06-20] MEDS ORDERED: TRIA15CR2 TP (15:17)
[2022-06-20] MEDS ORDERED: DIPH1TAB PO (15:17)
[2022-06-20] MEDS ORDERED: FLUT1BLS IH (15:21)
[2022-06-20] MEDS ORDERED: CARV12.5 PO (15:22)
[2022-06-20] MEDS ORDERED: LOSA50TA3 PO (15:24)
[2022-06-20] MEDS ORDERED: PANT40TA2 PO (15:25)
[2022-06-20] MEDS ORDERED: IPRA12.9 IH (15:27)
[2022-06-20] MEDS: PANTOPRAZOLE SODIUM 40 MG TABLET.DR PO SCH (15:51)
[2022-06-20 16:00] VITALS: BP 141/82
[2022-06-20] MEDS ORDERED: CARVEDILOL 12.5 MG TABLET PO SCH (17:00)
[2022-06-20] MEDS ORDERED: Medication Not On Formulary EA (Apixaban (Eliquis) 5 MG) PO SCH (17:00)
[2022-06-20 20:00] VITALS: BP 134/65
[2022-06-20] MEDS: DOCUSATE SODIUM 100 MG CAPSULE PO SCH ×2 (20:49→21:00)
[2022-06-20] MEDS: ACETAMINOPHEN 325 MG TABLET PO PRN (21:46)
--- NOTE | 2022-06-20 22:00 | NUR ---
PT REFUSED TO TAKE COREG AT 1800. PT PREFERS TO TAKE IT AT 2100 TOGETHER WITH LOSARTAN. EDUCATED PT OF THE IMPORTANCE OF THE TIMING OF MEDICATIONS. PT INSISTED TO STILL TAKE IT AT THE SAME TIME. BP 154/80. PT ALSO REFUSED COLACE. WILL CONTINUE TO MONITOR.
[2022-06-21] VITALS: BP 127/46
[2022-06-21 04:00] VITALS: BP 139/72
[2022-06-21] MEDS: LEVOTHYROXINE SODIUM 25 MCG TABLET PO SCH (06:12)
[2022-06-21] MEDS: VANCOMYCIN IV 750 MG in IV DEXTROSE 5% 250 ML IV SCH (06:12)
[2022-06-21 06:50] LABS: CREATININE 0.9 mg/dL (0.6-1.3); MAGNESIUM 1.9 mg/dL (1.8-2.4); POTASSIUM 3.9 mmol/L (3.5-5.1)
[2022-06-21] MEDS ORDERED: LEVOTHYROXINE SODIUM 25 MCG TABLET PO SCH (07:00)
--- NOTE | 2022-06-21 07:30 | NUR ---
-REC'D PATIENT IN HER BED, AWAKE. A/OX4, VERBALIZES NEEDS AND FOLLOWS DIRECTIONS. PATIENT DENIES ANY PAIN OR DISCOMFORT. ON R/A AND GRAHAM. WELL. NO COUGH/SOB/RESP. DISTRESS NOTED. CALL LIGHT WITH IN REACH
[2022-06-21 07:47] LABS: HEMATOCRIT 37.8 % (31.2-41.9); MEAN CORPUSCULAR HEMOGLOBIN 28.1 uug (24.7-32.8); MEAN CORPUSCULAR VOLUME 87.4 fL (75.5-95.3); PLATELET COUNT (AUTO) 87 K/uL (179-408)
[2022-06-21] MEDS: CARVEDILOL 12.5 MG TABLET PO SCH ×2 (08:12→19:46)
[2022-06-21] MEDS: LOSARTAN POTASSIUM 50 MG TABLET PO SCH ×2 (08:12→21:02)
[2022-06-21] MEDS: DOXYCYCLINE HYCLATE 100 MG TABLET PO SCH ×2 (08:12→20:53)
[2022-06-21] MEDS: APIXABAN 5 MG TABLET PO SCH ×2 (08:13→20:53)
[2022-06-21] MEDS: ACIDOPHILUS/BULGARICUS CHEW TAB PO SCH ×2 (08:16→08:39)
[2022-06-21] MEDS ORDERED: BACILLUS COAGULANS PO SCH (09:00)
[2022-06-21] MEDS ORDERED: PANTOPRAZOLE SODIUM 40 MG TABLET.DR PO SCH (09:00)
--- NOTE | 2022-06-21 09:05 | NUR ---
dc folly catheter per md orders 300 ml urine output noted ,no c/o pain noted ,we will continue to monitor
[2022-06-21] MEDS: FLUTICASONE/VILANTEROL 1 EACH BLST.W.DEV IH SCH (09:07)
[2022-06-21 09:21] LABS: EOSINOPHILS % (MANUAL) 1 % (0-8); LYMPHOCYTES % (MANUAL) 30 % (20-40); MONOCYTES % (MANUAL) 6 % (2-10); MYELOCYTES % 1 % (0-0); NEUTROPHILS % (MANUAL) 62 % (42-75)
[2022-06-21] MEDS: CEFEPIME HCL 1 G in IV DEXTROSE 5% 50 ML IV SCH ×2 (10:07→22:11)
--- NOTE | 2022-06-21 10:46 | NUR ---
left lower leg dressing change per md orders no drainage noted
--- NOTE | 2022-06-21 11:06 | NUR ---
pt urinate after the catheter removed
[2022-06-21 11:34] VITALS: BP 138/68
[2022-06-21] MEDS: PANTOPRAZOLE SODIUM 40 MG TABLET.DR PO SCH (15:30)
[2022-06-21 16:00] VITALS: BP 151/85
[2022-06-21 20:00] VITALS: BP 172/81
[2022-06-21] MEDS: DOCUSATE SODIUM 100 MG CAPSULE PO SCH (21:00)
[2022-06-22] VITALS (7 sets, daily range): BP systolic 88–145; BP diastolic 43–79
[2022-06-22] MEDS: VANCOMYCIN IV 750 MG in IV DEXTROSE 5% 250 ML IV SCH (04:17)
--- NOTE | 2022-06-22 05:13 | NUR ---
Slept intermittently. Pt complained of nausea. Zofran given as ordered. Pt verbalized relief. Wound care done on left lower leg. No drainage noted. All needs attended. Call light within reach. Safety precautions maintained.
[2022-06-22] MEDS: LEVOTHYROXINE SODIUM 25 MCG TABLET PO SCH (06:01)
[2022-06-22] MEDS: CARVEDILOL 12.5 MG TABLET PO SCH ×2 (08:00→14:41)
[2022-06-22] MEDS: LOSARTAN POTASSIUM 50 MG TABLET PO SCH ×2 (09:00→14:41)
[2022-06-22] MEDS: DOXYCYCLINE HYCLATE 100 MG TABLET PO SCH (09:16)
[2022-06-22] MEDS: FLUTICASONE/VILANTEROL 1 EACH BLST.W.DEV IH SCH (09:16)
[2022-06-22] MEDS: ACIDOPHILUS/BULGARICUS CHEW TAB PO SCH (09:16)
[2022-06-22] MEDS: APIXABAN 5 MG TABLET PO SCH (09:19)
--- NOTE | 2022-06-22 10:10 | NUR ---
pt bp is low 88/43 hr is 71 pt is axox4 and pt is saying she dont feel good charge nurse and md made aware
--- NOTE | 2022-06-22 10:15 | NUR ---
recheck the vital sign pt bp is 98/51 and hr is 76 md notified orders received noted and carried out
[2022-06-22 11:02] LABS: HEMATOCRIT 38.4 % (31.2-41.9); MEAN CORPUSCULAR HEMOGLOBIN 28.1 uug (24.7-32.8); MEAN CORPUSCULAR VOLUME 87.2 fL (75.5-95.3); PLATELET COUNT (AUTO) 101 K/uL (179-408)
[2022-06-22 11:11] LABS: BILIRUBIN,TOTAL 0.4 mg/dL (0.2-1.0); MAGNESIUM 1.8 mg/dL (1.8-2.4); PHOSPHOROUS 3.9 mg/dL (2.5-4.9); POTASSIUM 3.6 mmol/L (3.5-5.1); TOTAL PROTEIN, SERUM 6.4 g/dL (6.4-8.2)
[2022-06-22] MEDS: CEFEPIME HCL 1 G in IV DEXTROSE 5% 50 ML IV SCH (11:23)
[2022-06-22 12:07] LABS: *BILIRUBIN,URIN NEGATIVE (NEGATIVE); *BLOOD, URINE NEGATIVE (NEGATIVE); *CLARITY,URINE CLEAR (CLEAR); *COLOR,URINE YELLOW (YELLOW); *KETONES,URINE NEGATIVE (NEGATIVE); *UROBILINOGEN,URINE 0.2 E.U./dl (NORMAL); LEUKOCYTE ESTERASE ,URINE NEGATIVE (NEGATIVE); NITRITE, URINE NEGATIVE (NEGATIVE); PH,URINE 6.5 (5.0-8.0); UGLUCOSE NEGATIVE (NEGATIVE)
[2022-06-22] MEDS: PANTOPRAZOLE SODIUM 40 MG TABLET.DR PO SCH (15:14)
[2022-06-22] MEDS ORDERED: CIPR500S3 PO (15:24)
[2022-06-22] MEDS ORDERED: DOXY100T2 PO (15:24)
--- NOTE | 2022-06-22 17:52 | NUR ---
dc orders received noted and carried out,dc midline per md orders. dc instruction and education given to the pt ,pt said she will follow up with her pcp .pt left the facility via ambulances in stable condition
== END 2022-06-22 17:50 | disposition home health service (06) | DRG 862 ==
LOC: ER 13:30 → MEDSURG3 20:21
PROVIDERS: ADMIT Internal Medicine; ATTEND Internal Medicine
PROC: 05H933Z Insertion of Infusion Device into Right Brachial Vein, Percutaneous Approach (ICD-10-PCS; principal; 2022-06-19)
DX: T81.41XA Infection following a procedure, superficial incisional surgical site, initial encounter (principal); T81.44XA Sepsis following a procedure, initial encounter; A41.9 Sepsis, unspecified organism; I50.31 Acute diastolic (congestive) heart failure; L03.116 Cellulitis of left lower limb; D68.59 Other primary thrombophilia; N17.9 Acute kidney failure, unspecified; I11.0 Hypertensive heart disease with heart failure; Z85.820 Personal history of malignant melanoma of skin; E11.51 Type 2 diabetes mellitus with diabetic peripheral angiopathy without gangrene; E86.0 Dehydration; Z66 Do not resuscitate; E78.5 Hyperlipidemia, unspecified; E03.9 Hypothyroidism, unspecified; J44.9 Chronic obstructive pulmonary disease, unspecified; Z20.822 Contact with and (suspected) exposure to COVID-19; K21.9 Gastro-esophageal reflux disease without esophagitis; K57.90 Diverticulosis of intestine, part unspecified, without perforation or abscess without bleeding; I48.0 Paroxysmal atrial fibrillation; G89.29 Other chronic pain; M47.9 Spondylosis, unspecified; Z87.891 Personal history of nicotine dependence; Z90.49 Acquired absence of other specified parts of digestive tract; Z79.899 Other long term (current) drug therapy; Z79.01 Long term (current) use of anticoagulants; Z79.51 Long term (current) use of inhaled steroids; Z79.890 Hormone replacement therapy; K42.9 Umbilical hernia without obstruction or gangrene; K40.90 Unilateral inguinal hernia, without obstruction or gangrene, not specified as recurrent; K44.9 Diaphragmatic hernia without obstruction or gangrene; E66.9 Obesity, unspecified; Z68.29 Body mass index [BMI] 29.0-29.9, adult; Z95.820 Peripheral vascular angioplasty status with implants and grafts; Z88.6 Allergy status to analgesic agent; D69.6 Thrombocytopenia, unspecified
CPT/HCPCS: 36415; 70030-TC; 71045; 73590; 83605; 83735; 84100; 84443; 84484; 85025; 85651; 85730; 86140; 87040; 93005; A4663; C1758; G0378; J0692; J1940; J2405; J2543; J3370; J7040; J7050

== ENCOUNTER 2022-07-17 02:55 | Emergency (ER) | payer MEDICARE, OTHER ==
[~2022-07-17] VITALS: Ht 160 cm; Wt 79.8 kg
[~2022-07-17 02:55] MED LIST changes: -ALBU8.5H8 INH; -ATOR10TA PO; +CARV12.5 PO; -CARV6.25 PO; +CIPR500S3 PO; +CLON0.1T PO; +DIPH1TAB PO; +DOXY100T2 PO; +GUAI177L6 PO; -HYDR-3972 PO; +IPRA12.9 IH; -LEVO500T90 PO; -LOSA100T31 PO; +LOSA50TA3 PO; -METR500T PO; -MULT-594 PO; -PHEN57OI3 RC; -TRAM50TA2 PO; +TRIA15CR2 TP; -ZOLP5TAB8 PO
--- NOTE | 2022-07-17 03:00 | NUR ---
Patient BIB ambulace with complain of right hip pain that started 3 days ago and is worsen now. Denies any fall incident. Patient AAOx4. No cardiorespiratory complain. No n/v.
--- NOTE | 2022-07-17 03:08 | NUR ---
Dr. Miguel Hoffman at bedside for MSE.
[2022-07-17] MEDS ORDERED: GUAI177L6 PO (03:24)
[2022-07-17] MEDS ORDERED: CARV12.52 PO (03:24)
[2022-07-17] MEDS ORDERED: DIPH1TAB PO (03:24)
[2022-07-17] MEDS ORDERED: ATOR40TA PO (03:24)
[2022-07-17] MEDS ORDERED: APIX5TAB PO (03:24)
[2022-07-17] MEDS ORDERED: ACET-637 PO (03:24)
[2022-07-17] MEDS ORDERED: TRIA60LO7 TP (03:24)
[2022-07-17] MEDS ORDERED: CLON0.1T PO (03:24)
[2022-07-17] MEDS ORDERED: NYST5ORA PO (03:24)
[2022-07-17] MEDS ORDERED: LOSA50TA39 PO (03:24)
[2022-07-17] MEDS ORDERED: ACET325T53 PO (03:24)
[2022-07-17] MEDS ORDERED: FLUT1BLS IH (03:24)
[2022-07-17] MEDS ORDERED: PANT40TA49 PO (03:24)
[2022-07-17] MEDS ORDERED: LEVO25TA9 PO (03:24)
[2022-07-17 03:31] LABS: HEMATOCRIT 38.8 % (31.2-41.9); MEAN CORPUSCULAR HEMOGLOBIN 27.8 uug (24.7-32.8); MEAN CORPUSCULAR VOLUME 85.1 fL (75.5-95.3); PLATELET COUNT (AUTO) 101 K/uL (179-408)
[2022-07-17 03:37] LABS: *BILIRUBIN,URIN NEGATIVE (NEGATIVE); *CLARITY,URINE CLEAR (CLEAR); *COLOR,URINE YELLOW (YELLOW); *KETONES,URINE NEGATIVE (NEGATIVE); *UROBILINOGEN,URINE 0.2 E.U./dl (NORMAL); LEUKOCYTE ESTERASE ,URINE NEGATIVE (NEGATIVE); NITRITE, URINE NEGATIVE (NEGATIVE); UGLUCOSE NEGATIVE (NEGATIVE)
[2022-07-17 03:38] LABS: *BLOOD, URINE NEGATIVE (NEGATIVE)
[2022-07-17 03:38] LABS: CARBON DIOXIDE 27 mmol/L (21-32); CHLORIDE 106 mmol/L (98-107); GLUCOSE 94 mg/dL (74-106); POTASSIUM 3.4 mmol/L (3.5-5.1); UREA NITROGEN, BLOOD 11 mg/dL (7-18)
--- NOTE | 2022-07-17 03:47 | NUR ---
Back from CT.
[2022-07-17 03:49] LABS: ALANINE AMINOTRANSFERASE 17 U/L (14-59); ALKALINE PHOSPHATASE 80 U/L (50-136); ASPARTATE AMINOTRANSFERASE 13 U/L (15-37); BILIRUBIN,DIRECT 0.1 mg/dL (0.0-0.2); BILIRUBIN,TOTAL 0.3 mg/dL (0.2-1.0); LIPASE 42 U/L (73-393); TOTAL PROTEIN, SERUM 6.9 g/dL (6.4-8.2)
--- NOTE | 2022-07-17 04:40 | NUR ---
Called Yaneth Morris to follow up on xray and CT result.
[2022-07-17] MEDS ORDERED: LIDOCAINE 5% PATCH TD ONE ×2 (05:56→06:00)
[2022-07-17] MEDS ORDERED: KETOROLAC TROMETHAMINE 15 MG INJ ONE (05:56)
[2022-07-17] MEDS ORDERED: FENTANYL CITRATE 100 MCG/2 ML AMPUL ONE (05:57)
[2022-07-17] MEDS ORDERED: FENTANYL CITRATE 100 MCG/2 ML AMPUL IV ONE (06:00)
[2022-07-17] MEDS ORDERED: KETOROLAC TROMETHAMINE 15 MG INJ IVP ONE (06:00)
[2022-07-17] MEDS ORDERED: OXYC5CAP18 PO (06:24)
--- NOTE | 2022-07-17 06:34 | NUR ---
Telephone call to [facility] ambulance, spoke to Malathi, patient to be discharge back to [facility] room 107. ETA 55-60mins. Daughter Ailin at bedside.
--- NOTE | 2022-07-17 07:00 | NUR ---
Received pt from [facility], in bed aox4, able to make needs known. BM noted x1
--- NOTE | 2022-07-17 08:28 | NUR ---
[facility] came. picked up patient. VSS
[2022-07-17 08:36] VITALS: BP 122/74
== END 2022-07-17 08:36 | disposition home or self-care (01) ==
LOC: ER 03:01
DX: M25.551 Pain in right hip (principal); I25.2 Old myocardial infarction; I11.0 Hypertensive heart disease with heart failure; I50.9 Heart failure, unspecified; I48.91 Unspecified atrial fibrillation; J44.9 Chronic obstructive pulmonary disease, unspecified; E11.9 Type 2 diabetes mellitus without complications; E03.9 Hypothyroidism, unspecified; E78.5 Hyperlipidemia, unspecified; F17.210 Nicotine dependence, cigarettes, uncomplicated; Z90.49 Acquired absence of other specified parts of digestive tract; Z88.5 Allergy status to narcotic agent; Z79.2 Long term (current) use of antibiotics; Z79.899 Other long term (current) drug therapy
CPT/HCPCS: 99285; 74176; 96374; 96375; 80076; 80048; 81003; 83690; 85025; 36415; 73502; J1885; J3010; A4663